=== PATIENT | male | born 1970 | race Caucasian/White ===

== ENCOUNTER → 2016-09-14 | Outpatient (CLI) | payer BC ==
[2016-09-14 16:40] LABS: BASO % 0.9 %; BASO ABS # 0.07 K/uL (0-0.2); COMPLETE YES; EOS % 3.8 %; HEMATOCRIT 46.7 % (42-52); IG% 0.3 %; LYMPH % 20.7 %; LYMPH ABS # 1.53 K/uL (1.2-3.4); MEAN CELL VOLUME 98.7 fL (80-100); MEAN CORPUSCULAR HEMOGLOBIN 34.2 pg (25-34); MEAN CORPUSCULAR HGB CONC 34.7 g/dl (32-36); MEAN PLATELET VOLUME 9.6 fL (7.4-10.4); MONO % 9.3 %; PLATELET COUNT 278 K/uL (130-400); RED BLOOD COUNT 4.73 M/uL (4.7-6.1)
[2016-09-14 17:23] LABS: ALT/SGPT 173 U/L (12-78); AST/SGOT 116 U/L (15-37); BLOOD UREA NITROGEN 12 mg/dl (7-18); BUN/CREATININE RATIO 11.3 (10-20); CALCIUM 9.4 mg/dl (8.5-10.1); CARBON DIOXIDE 29 mmol/L (21-32); CHLORIDE 103 mmol/L (98-107); GLUCOSE 96 mg/dl (70-99); POTASSIUM 4.6 mmol/L (3.5-5.1); SODIUM 138 mmol/L (136-145)
[2016-09-14 17:27] LABS: ALB/GLOB RATIO 1.2 (0.9-2); ALKALINE PHOSPHATASE 78 U/L (45-117); CHOLESTEROL 331 mg/dl (0-200); CHOLESTEROL/HDL RATIO 4.7; HDL CHOLESTEROL 71 mg/dl; LDL CHOLESTEROL CALCULATED 207 mg/dl; PROSTATE SPECIFIC ANTIGEN 0.484 ng/ml (0.000-4.000); TRIGLYCERIDES 263 mg/dl (0-150); VERY LOW DENSITY LIPOPROT CALC 53 mg/dl
== END | disposition home or self-care (01) ==
LOC: C.LABPBG 13:18
PROVIDERS: ATTEND Neuromusculoskeletal Medicine & OMM
DX: Z00.00 Encounter for general adult medical examination without abnormal findings (principal); Z12.5 Encounter for screening for malignant neoplasm of prostate

== ENCOUNTER → 2016-11-15 | Outpatient (CLI) | payer BC ==
--- NOTE | 2016-11-15 13:42 | DIAGNOSTIC IMAGING REPORT ---
CHEST 2 VIEWS ROUTINE CLINICAL HISTORY: R05 [id number] Allergic rhinitis dyspnea COMPARISON STUDY: No previous studies for comparison. FINDINGS: The bones soft tissues and hemidiaphragms are normal. The cardiomediastinal silhouette is normal. The lungs are clear. The pulmonary vasculature is normal. IMPRESSION: Negative chest. Electronically signed by: Ismael Logan M.D. 11/15/2016 1:41 PM Dictated Date/Time: 11/15/2016 1:41 PM
== END | disposition home or self-care (01) ==
LOC: C.RAD1850 13:27
PROVIDERS: ATTEND Internal Medicine Pulmonary Disease
DX: R05 Cough (principal); J30.9 Allergic rhinitis, unspecified

== ENCOUNTER → 2017-01-15 | Outpatient (CLI) | payer BC ==
--- NOTE | 2017-01-18 11:25 | POLYSOMNOGRAPH REPORT ---
CLINICAL DATA: 46-year-old male with BMI of 34.21 referred by myself and Dr. Dyson with a crowded airway, thick neck, snoring and cough. On the evening of 01/15/2017, a home sleep apnea test was performed using a [employer] type 3 monitor. RECORDING RESULTS: Total recording time was 10 hours. The patient's monitoring time and estimated sleep time was 10 hours. RESPIRATORY DATA: Severe sleep apnea was documented. The SUSANA was 61. There were 161 obstructive, 87 mixed, and 5 central apneic episodes. There were 356 hypopneic episodes. The longest respiratory event was 78 seconds. Significant nocturnal hypoxemia was seen. The oxygen itz was 71%. Mean saturation was 89%. Time below 89% was 203 minutes. HEART RATE DATA: Heart rates ranged from 60-46 beats per minute. SNORING DATA: Snoring was recorded throughout the night. IMPRESSION: Severe sleep apnea/hypopnea with an SUSANA of 61 with severe nocturnal hypoxemia. RECOMMENDATIONS: The patient may benefit from a repeat sleep study with CPAP or use of auto CPAP. Clinical correlation is needed. LIGIA
== END | disposition home or self-care (01) ==
LOC: C.NEUR 11:33
PROVIDERS: ATTEND Internal Medicine Pulmonary Disease
DX: R53.83 Other fatigue (principal); G47.30 Sleep apnea, unspecified; R09.02 Hypoxemia

== ENCOUNTER → 2017-07-26 | Outpatient (CLI) | payer OTHER ==
[2017-07-26 16:55] LABS: BASO % 1.3 %; BASO ABS # 0.07 K/uL (0-0.2); EOS % 4.1 %; EOS ABS # 0.22 K/uL (0-0.5); HEMATOCRIT 43.6 % (42-52); HEMOGLOBIN 15.4 g/dL (14.0-18.0); IG# 0.01 K/uL (0.00-0.02); LYMPH % 26.1 %; LYMPH ABS # 1.41 K/uL (1.2-3.4); MEAN CORPUSCULAR HEMOGLOBIN 32.8 pg (25-34); MEAN CORPUSCULAR HGB CONC 35.3 g/dl (32-36); MEAN PLATELET VOLUME 9.5 fL (7.4-10.4); MONO ABS # 0.65 K/uL (0.11-0.59); NEUT % 56.3 %; NEUT ABS # 3.05 K/uL (1.4-6.5); PLATELET COUNT 307 K/uL (130-400); RED CELL DISTRIBUTION WIDTH CV 13.2 % (11.5-14.5); RED CELL DISTRIBUTION WIDTH SD 44.2 fL (36.4-46.3); WHITE BLOOD COUNT 5.41 K/uL (4.8-10.8)
[2017-07-26 17:16] LABS: ALBUMIN 4.1 gm/dl (3.4-5.0); ALT/SGPT 197 U/L (12-78); BLOOD UREA NITROGEN 10 mg/dl (7-18); CALCIUM 9.2 mg/dl (8.5-10.1); CARBON DIOXIDE 28 mmol/L (21-32); CHOLESTEROL 301 mg/dl (0-200); CREATININE 1.28 mg/dl (0.60-1.40); GLUCOSE 106 mg/dl (70-99); POTASSIUM 4.2 mmol/L (3.5-5.1); SODIUM 136 mmol/L (136-145)
[2017-07-26 17:29] LABS: ALKALINE PHOSPHATASE 48 U/L (45-117); AST/SGOT 182 U/L (15-37); LDL CHOLESTEROL CALCULATED 226 mg/dl; TOTAL PROTEIN 7.6 gm/dl (6.4-8.2)
== END | disposition home or self-care (01) ==
LOC: C.LABPBG 14:10
PROVIDERS: ATTEND Neuromusculoskeletal Medicine & OMM
DX: I10 Essential (primary) hypertension (principal); E78.5 Hyperlipidemia, unspecified

== ENCOUNTER → 2017-09-17 | Outpatient (CLI) | payer OTHER ==
[~2017-09-17] MED LIST: OPTIRAY 320 IV PRN
--- NOTE | 2017-09-17 11:27 | DIAGNOSTIC IMAGING REPORT ---
CT OF THE CHEST WITH IV CONTRAST CLINICAL HISTORY: Cough. Asthma. COMPARISON STUDY: Chest radiograph November 15, 2016. TECHNIQUE: Following IV administration of 94 mL of Optiray-320, helical axial images of the chest were obtained. Sagittal and coronal reconstructions were viewed as well as maximal intensity projections on an independent 3-D workstation. A dose lowering technique was utilized adhering to the principles of ALARA. CT DOSE: 690.95 mGy.cm FINDINGS: No enlarged axillary, mediastinal or hilar lymph nodes are present. There are several calcified right hilar lymph nodes. The size of the heart is normal. There is no pericardial effusion. Central airways are patent. There is no pneumothorax or pleural effusion. No consolidation is present. A few calcified granulomas measure up to 6 mm. Bony thorax is unremarkable. Fatty infiltration of the liver is noted. IMPRESSION: 1. No acute intrathoracic findings. No consolidation to suggest pneumonia. 2. No suspicious pulmonary nodules. 3. Evidence for prior granulomatous process. 4. Fatty liver. Electronically signed by: Kasi Perry M.D. 09/17/2017 11:25 AM Dictated Date/Time: 09/17/2017 11:19 AM
== END | disposition home or self-care (01) ==
LOC: C.CTS 11:04
PROVIDERS: ATTEND Internal Medicine Critical Care Medicine
DX: R05 Cough (principal); K76.0 Fatty (change of) liver, not elsewhere classified

== ENCOUNTER 2020-11-25 16:22 | Inpatient (IN) ==
--- NOTE | 2020-11-25 16:42 | Emergency Department Note ---
Impression & Plan Acute kidney insufficiency, Hypomagnesemia, Hyponatremia ED Provider Note NAME: JEANNETTE MEJIA AGE: 50 SEX: M ARRIVES VIA: Walk-In INFORMANT: Patient, ED PROVIDER(S): Alphonso Youssef MD CHIEF COMPLAINT: Bodyaches, fatigue. Referred. PLAN: Disposition: Admit MEDICAL DECISION MAKING: The patient is a pleasant 50-year-old gentleman with a pmhx of HTN, HLD, GERD, VALERY, Transaminitis who presents to the emergency department referred by his PCP for outpatient blood work showing acute renal insufficiency and worsening LFTs. The patient reports his blood work was performed 2 days ago as a part of an outpatient well visit that happened to coincide with acute onset of symptoms of nausea vomiting and body aches approximately 5 days ago. The patient denies any objective fevers or cough with his symptoms. He denies any known COVID-19 exposures. He denies any known tick bites. He reports since being seen a couple of days ago he has felt some mild improvement in his body aches. On arrival the patient fatigued appearing but no acute distress, afebrile with stable vital signs. On exam the patient appears clinically dry. He has no joint edema, warmth or tenderness. EKG without overt acute ischemia. Chest x-ray negative for acute cardiopu lmonary process. WBC, hemoglobin and platelets within normal limits. He does have a mild lymphopenia at 0.94. Chemistry without metabolic acidosis. Creatinine however is 2.6, increased from normal range approximately a year ago. Sodium 124 which may be multifactorial in setting of dehydration from nausea and vomiting as well as being on hydrochlorothiazide. Magnesium 1.5 with repletion initiated. LFTs are elevated from baseline. Troponin negative/undetectable. Lipase is marginally elevated at 500. TSH within normal limits. UA without convincing evidence of infection. Lyme screen was negative. Anaplasma smear also negative. CT Abd pelvis was performed and negative for acute process. Given the patient's numerous lab abnormalities including acute renal insufficiency, hyponatremia and hypomagnesemia reasonable to admit the patient for further management. Patient is in agreement with this plan. Case was discussed with Dr. Canales, [facility] hospitalist, who will evaluate the patient for admission. Triage Nursing notes reviewed and agree them. Prior medical records reviewed Vital Signs: reviewed and remarkable for no significant abnormalities Differential diagnosis: Infection, dehydration, metabolic abnormality, hypo/hyperglycemia, electrolyte disturbance, anemia, hypoxia, cardiac sources, intracerebral event, toxicologic, neurologic, as well as other pathologies. ER treatment provided: See below. Diagnostics interpreted by me: ECG: Normal sinus rhythm, 71 bpm, no ectopy, ST and T wave abnormality, no overt ST elevation or depression, QTC 443, QRS 82. Cardiac Monitoring: An order for continuous cardiac monitoring was placed and demonstrated Normal sinus rhythm, 71 bpm, no ectopy. Laboratory studies: See below Imaging studies: See below Consultation(s): Case was discussed with Dr. Canales, [facility] hospitalist, who will evaluate the patient for admission. HPI: The patient is a pleasant 50-year-old gentleman with a pmhx of HTN, HLD, GERD, VALERY, Transaminitis who presents to the emergency department referred by his PCP for outpatient blood work showing acute renal insufficiency and wor sening LFTs. The patient reports his blood work was performed 2 days ago as a part of an outpatient well visit that happened to coincide with acute onset of symptoms of nausea vomiting and body aches approximately 5 days ago. The patient denies any objective fevers or cough with his symptoms. He denies any known COVID-19 exposures. He denies any known tick bites. He reports since being seen a couple of days ago he has felt some mild improvement in his body aches. ROS: See above HPI for pertinent positives & negatives. A total of 10 systems reviewed and were otherwise negative. PAST MEDICAL HISTORY:See Below PAST SURGICAL HISTORY:See Below FAMILY HISTORY:See Below SOCIAL HISTORY:See Below HOME MEDICATIONS:See Below ALLERGIES:See Below VITALS:See Below PHYSICAL EXAMINATION: GENERAL: Awake, alert, fatigued-appearing, in no distress HENT: Normocephalic, atraumatic. Oropharynx with dry mucous membranes and otherwise unremarkable. EYES: Normal conjunctiva. Sclera non-icteric. EOMI. No nystamgus. PEARRL. NECK: Supple. No nuchal rigidity. FROM. No JVD. RESPIRATORY: Clear to auscultation. CARDIAC: Regular rate, normal rhythm. Extremities warm and well perfused. Pulses equal. ABDOMEN: Soft, non-distended. No tenderness to palpation. No rebound or guarding. No masses. RECTAL: Deferred. MUSCULOSKELETAL: Chest examination reveals no tenderness. The back is symmetrical on inspection without obvious abnormality. There is no CVA tenderness to palpation. No joint edema. LOWER EXTREMITIES: Calves are equal size bilaterally and non-tender. No edema. No discoloration. NEURO: Normal sensorium. No sensory or motor deficits noted. 5/5 strength and S ILT x 4 extremities. SKIN: No rash or jaundice noted. Alphonso Youssef MD Past Med/Surg History Medical History Cat allergies Chronic back pain Hyperlipidemia Hypertension Oral thrush Severe obstructive sleep apnea Surgical History History of hand surgery History of laminectomy Family History Mother Dementia Grandmother (Maternal) Dementia Aunt Dementia Denies family history of Colon cancer Ovarian cancer Prostate cancer Myocardial infarction Breast cancer Social History Smoking Status: Never smoker Second Hand Exposure: No; Hx Alcohol Use: Yes Alcohol type: hard liquor Alcohol Intake Frequency: 4 or More x per/Week Alcohol Intake Frequency Comment: 15-25 drinks/week Hx Substance Use: Yes Last Used Substance: Days (ago) Preferred Language: Tajik Communication Ability: Effective Visual Impairment: No Limitations Hearing Ability: Normal Beliefs That Will Affect Care: None marital status: Current Living Situation: Spouse current occupational status: other Other Information That Helps Us Care for You: No Feels Safe at Home: Yes Safety Concerns: Feels Safe At This Time Childhood Exposure to Second-Hand Smoke: Yes Diet Comment: no diet plans Dental Care, Regularly: Yes Physical Activity Frequency: Does not Exercise Seatbelt Use: always Sunscreen Use: No Do you think of yourself as: straight/heterosexual Assistive Devices: Glasses Allergies Allergies Allergy/AdvReac Type Severity Reaction Status Date / Time erythromycin base Allergy Severe seizures Verified 02/08/20 14:25 PREPOPIK Allergy Intermediate skin rash Uncoded 02/08/20 14:25 Home Meds Home Medications Medication Instructions Recorded Confirmed glycopyrrolate 1 mg tablet 5 mg PO DAILY tab 02/05/19 11/25/20 acetaminophen [Tylenol Extra 500 mg PO Q6H PRN 11/25/20 11/25/20 Strength] Previous Rx's Medication Instructions Recorded atorvastatin 20 mg tablet 20 mg PO DAILY #90 tab 08/11/20 fenofibrate nanocrystallized 145 145 mg PO DAILY #90 tab 08/11/20 mg tablet hydrochlorothiazide 25 mg tablet 25 mg PO DAILY #90 tab 08/11/20 metoprolol tartrate 100 mg tablet 100 mg PO BID #180 tab 08/11/20 olmesartan 40 mg tablet 40 mg PO DAILY #90 tab 08/11/20 omeprazole 40 mg capsule,delayed 40 mg PO DAILY #90 cap 08/11/20 release Results & Data (ED) Vital Signs Vital Signs - 24 hr 11/25/20 16:25 11/25/20 17:00 11/25/20 18:36 Temperature 37.3 C Temperature Source Oral Pulse Rate 76 Pulse Rate [Apical] 65 Pulse Rate from SpO2 Sensor Respiratory Rate 20 18 Respiratory Effort / Characteristics Non-Labored Respiratory Depth Normal Blood Pressure 172/101 H Blood Pressure [Right Arm] 159/114 H Blood Pressure Mean 124 Blood Pressure Mean [Right Arm] 129 Pulse Oximetry 100 98 100 Oxygen Delivery Method Room Air Room Air Sepsis Recent Fever Within 48 Hours No Sepsis New/Unexplained Change in Mental Status N/A Sepsis Action Taken by Nursing No Action Required 11/25/20 19:15 11/25/20 19:30 11/25/20 20:30 Temperature Temperature Source Pulse Rate 67 71 72 Pulse Rate [Apical] Pulse Rate from SpO2 Sensor 70 71 72 Respiratory Rate 15 19 22 Respiratory Effort / Characteristics Respiratory Depth Blood Pressure 162/102 H 162/95 H 137/96 Blood Pressure [Right Arm] Blood Pressure Mean 122 117 109 Blood Pressure Mean [Right Arm] Pulse Oximetry 98 99 97 Oxygen Delivery Method Room Air Room Air Room Air Sepsis Recent Fever Within 48 Hours Sepsis New/Unexplained Change in Mental Status Sepsis Action Taken by Nursing Laboratory Data Attestation: I reviewed the patient's lab results. Result diagrams: 11/25/20 16:40 11/25/20 16:40 Lab Results 11/25/20 11/25/20 11/25/20 Range/Units 16:40 16:40 16:40 WBC 8.59 (4.8-10.8) K/uL RBC 4.26 L (4.7-6.1) M/uL Hgb 14.6 (14.0-18.0) g/dL Hct 39.9 L (42-52) % MCV 93.7 (80-100) fL MCH 34.3 H (25-34) pg MCHC 36.6 H (32-36) g/dL RDW Std Deviation 53.0 H (36.4-46.3) fL RDW Coeff of Mona 15.4 H (11.5-14.5) % Plt Count 314 (130-400) K/uL MPV 9.3 (7.4-10.4) fL Immature Gran % (Auto) 0.1 % Neut % (Auto) 77.8 % Lymph % (Auto) 10.9 % [place] % (Auto) 10.5 % Eos % (Auto) 0.5 % Baso % (Auto) 0.2 % Neut # (Auto) 6.68 H (1.4-6.5) K/uL Lymph # (Auto) 0.94 L (1.2-3.4) K/uL [place] # (Auto) 0.90 H (0.11-0.59) K/uL Eos # (Auto) 0.04 (0-0.5) K/uL Baso # (Auto) 0.02 (0-0.2) K/uL Immature Gran # (Auto) 0.01 (0.00-0.02) K/uL PT (9.0-12.0) Seconds INR (0.9-1.1) Sodium 124 L (136-145) mmol/L Potassium 3.5 (3.5-5.1) mmol/L Chloride 88 L (98-107) mmol/L Carbon Dioxide 24 (21-32) mmol/L Anion Gap 12.0 H (3-11) BUN 42 H (7-18) mg/dl Creatinine 2.67 H (0.6-1.4) mg/dl Est Cr Clr Drug Dosing 36.9 ml/min Est GFR ( Amer) 30.5 ml/min Est GFR (Non-Af Amer) 26.3 ml/min BUN/Creatinine Ratio 15.6 (10-20) Glucose 103 H (70-99) mg/dl Osmolality (280-300) mOsm/kg Calcium 9.7 (8.5-10.1) mg/dl Phosphorus 2.5 (2.5-4.9) mg/dl Magnesium 1.5 L (1.8-2.4) mg/dl Total Bilirubin 1.2 H (0.2-1) mg/dl Direct Bilirubin 0.5 H (0-0.2) mg/dl AST 253 H (15-37) U/L ALT 175 H (12-78) U/L Alkaline Phosphatase 43 L (45-117) U/L Total Creatine Kinase 898 H (39-308) U/L Troponin I < 0.015 (0-0.045) ng/ml Total Protein 8.5 H (6.4-8.2) gm/dl Albumin 4.8 (3.4-5.0) gm/dl Globulin 3.7 (2.5-4.0) gm/dl Albumin/Globulin Ratio 1.3 (0.9-2) Lipase 557 H (73-393) U/L TSH 0.671 (0.300-4.500) uIu/ml Urine Color Urine Appearance (Clear) Urine pH (4.5-7.5) Ur Specific [place] (1.000-1.030) Urine Protein (Negative) Urine Glucose (UA) (Negative) Urine Ketones (Negative) Urine Blood (Negative) Urine Nitrite (Negative) Urine Bilirubin (Negative) Urine Urobilinogen (Negative) Ur Leukocyte Esterase (Negative) Ur Random Creatinine mg/dl Ur Random Sodium mmol/L Anaplasma Smear See Comment Lyme Disease IgG Ab Negative (Negative) Lyme Disease IgM Ab Negative (Negative) COVID-19 Eval Order SARS-CoV-2 (PCR) (Negative) Hep Bs Antigen (Neg) Hepatitis C Antibody (Neg) 11/25/20 11/25/20 11/25/20 Range/Units 16:40 16:40 16:40 WBC (4.8-10.8) K/uL RBC (4.7-6.1) M/uL Hgb (14.0-18.0) g/dL Hct (42-52) % MCV (80-100) fL MCH (25-34) pg MCHC (32-36) g/dL RDW Std Deviation (36.4-46.3) fL RDW Coeff of Mona (11.5-14.5) % Plt Count (130-400) K/uL MPV (7.4-10.4) fL Immature Gran % (Auto) % Neut % (Auto) % Lymph % (Auto) % [place] % (Auto) % Eos % (Auto) % Baso % (Auto) % Neut # (Auto) (1.4-6.5) K/uL Lymph # (Auto) (1.2-3.4) K/uL [place] # (Auto) (0.11-0.59) K/uL Eos # (Auto) (0-0.5) K/uL Baso # (Auto) (0-0.2) K/uL Immature Gran # (Auto) (0.00-0.02) K/uL PT 10.5 (9.0-12.0) Seconds INR 1.0 (0.9-1.1) Sodium (136-145) mmol/L Potassium (3.5-5.1) mmol/L Chloride (98-107) mmol/L Carbon Dioxide (21-32) mmol/L Anion Gap (3-11) BUN (7-18) mg/dl Creatinine (0.6-1.4) mg/dl Est Cr Clr Drug Dosing ml/min Est GFR ( Amer) ml/min Est GFR (Non-Af Amer) ml/min BUN/Creatinine Ratio (10-20) Glucose (70-99) mg/dl Osmolality (280-300) mOsm/kg Calcium (8.5-10.1) mg/dl Phosphorus (2.5-4.9) mg/dl Magnesium (1.8-2.4) mg/dl Total Bilirubin (0.2-1) mg/dl Direct Bilirubin (0-0.2) mg/dl AST (15-37) U/L ALT (12-78) U/L Alkaline Phosphatase (45-117) U/L Total Creatine Kinase (39-308) U/L Troponin I (0-0.045) ng/ml Total Protein (6.4-8.2) gm/dl Albumin (3.4-5.0) gm/dl Globulin (2.5-4.0) gm/dl Albumin/Globulin Ratio (0.9-2) Lipase (73-393) U/L TSH (0.300-4.500) uIu/ml Urine Color Dark Yellow Urine Appearance Clear (Clear) Urine pH 5.0 (4.5-7.5) Ur Specific [place] 1.021 (1.000-1.030) Urine Protein Negative (Negative) Urine Glucose (UA) 2+ H (Negative) Urine Ketones Trace H (Negative) Urine Blood Negative (Negative) Urine Nitrite Negative (Negative) Urine Bilirubin Negative (Negative) Urine Urobilinogen Negative (Negative) Ur Leukocyte Esterase Negative (Negative) Ur Random Creatinine 303.0 mg/dl Ur Random Sodium 29 mmol/L Anaplasma Smear Lyme Disease IgG Ab (Negative) Lyme Disease IgM Ab (Negative) COVID-19 Eval Order SARS-CoV-2 (PCR) (Negative) Hep Bs Antigen (Neg) Hepatitis C Antibody (Neg) 11/25/20 11/25/20 11/25/20 Range/Units 16:40 16:40 17:00 WBC (4.8-10.8) K/uL RBC (4.7-6.1) M/uL Hgb (14.0-18.0) g/dL Hct (42-52) % MCV (80-100) fL MCH (25-34) pg MCHC (32-36) g/dL RDW Std Deviation (36.4-46.3) fL RDW Coeff of Mona (11.5-14.5) % Plt Count (130-400) K/uL MPV (7.4-10.4) fL Immature Gran % (Auto) % Neut % (Auto) % Lymph % (Auto) % [place] % (Auto) % Eos % (Auto) % Baso % (Auto) % Neut # (Auto) (1.4-6.5) K/uL Lymph # (Auto) (1.2-3.4) K/uL [place] # (Auto) (0.11-0.59) K/uL Eos # (Auto) (0-0.5) K/uL Baso # (Auto) (0-0.2) K/uL Immature Gran # (Auto) (0.00-0.02) K/uL PT (9.0-12.0) Seconds INR (0.9-1.1) Sodium (136-145) mmol/L Potassium (3.5-5.1) mmol/L Chloride (98-107) mmol/L Carbon Dioxide (21-32) mmol/L Anion Gap (3-11) BUN (7-18) mg/dl Creatinine (0.6-1.4) mg/dl Est Cr Clr Drug Dosing ml/min Est GFR ( Amer) ml/min Est GFR (Non-Af Amer) ml/min BUN/Creatinine Ratio (10-20) Glucose (70-99) mg/dl Osmolality 277 L (280-300) mOsm/kg Calcium (8.5-10.1) mg/dl Phosphorus (2.5-4.9) mg/dl Magnesium (1.8-2.4) mg/dl Total Bilirubin (0.2-1) mg/dl Direct Bilirubin (0-0.2) mg/dl AST (15-37) U/L ALT (12-78) U/L Alkaline Phosphatase (45-117) U/L Total Creatine Kinase (39-308) U/L Troponin I (0-0.045) ng/ml Total Protein (6.4-8.2) gm/dl Albumin (3.4-5.0) gm/dl Globulin (2.5-4.0) gm/dl Albumin/Globulin Ratio (0.9-2) Lipase (73-393) U/L TSH (0.300-4.500) uIu/ml Urine Color Urine Appearance (Clear) Urine pH (4.5-7.5) Ur Specific [place] (1.000-1.030) Urine Protein (Negative) Urine Glucose (UA) (Negative) Urine Ketones (Negative) Urine Blood (Negative) Urine Nitrite (Negative) Urine Bilirubin (Negative) Urine Urobilinogen (Negative) Ur Leukocyte Esterase (Negative) Ur Random Creatinine mg/dl Ur Random Sodium mmol/L Anaplasma Smear Lyme Disease IgG Ab (Negative) Lyme Disease IgM Ab (Negative) COVID-19 Eval Order Covid19 at [facility] SARS-CoV-2 (PCR) (Negative) Hep Bs Antigen Neg (Neg) Hepatitis C Antibody Neg (Neg) 11/25/20 Range/Units 17:00 WBC (4.8-10.8) K/uL RBC (4.7-6.1) M/uL Hgb (14.0-18.0) g/dL Hct (42-52) % MCV (80-100) fL MCH (25-34) pg MCHC (32-36) g/dL RDW Std Deviation (36.4-46.3) fL RDW Coeff of Mona (11.5-14.5) % Plt Count (130-400) K/uL MPV (7.4-10.4) fL Immature Gran % (Auto) % Neut % (Auto) % Lymph % (Auto) % [place] % (Auto) % Eos % (Auto) % Baso % (Auto) % Neut # (Auto) (1.4-6.5) K/uL Lymph # (Auto) (1.2-3.4) K/uL [place] # (Auto) (0.11-0.59) K/uL Eos # (Auto) (0-0.5) K/uL Baso # (Auto) (0-0.2) K/uL Immature Gran # (Auto) (0.00-0.02) K/uL PT (9.0-12.0) Seconds INR (0.9-1.1) Sodium (136-145) mmol/L Potassium (3.5-5.1) mmol/L Chloride (98-107) mmol/L Carbon Dioxide (21-32) mmol/L Anion Gap (3-11) BUN (7-18) mg/dl Creatinine (0.6-1.4) mg/dl Est Cr Clr Drug Dosing ml/min Est GFR ( Amer) ml/min Est GFR (Non-Af Amer) ml/min BUN/Creatinine Ratio (10-20) Glucose (70-99) mg/dl Osmolality (280-300) mOsm/kg Calcium (8.5-10.1) mg/dl Phosphorus (2.5-4.9) mg/dl Magnesium (1.8-2.4) mg/dl Total Bilirubin (0.2-1) mg/dl Direct Bilirubin (0-0.2) mg/dl AST (15-37) U/L ALT (12-78) U/L Alkaline Phosphatase (45-117) U/L Total Creatine Kinase (39-308) U/L Troponin I (0-0.045) ng/ml Total Protein (6.4-8.2) gm/dl Albumin (3.4-5.0) gm/dl Globulin (2.5-4.0) gm/dl Albumin/Globulin Ratio (0.9-2) Lipase (73-393) U/L TSH (0.300-4.500) uIu/ml Urine Color Urine Appearance (Clear) Urine pH (4.5-7.5) Ur Specific [place] (1.000-1.030) Urine Protein (Negative) Urine Glucose (UA) (Negative) Urine Ketones (Negative) Urine Blood (Negative) Urine Nitrite (Negative) Urine Bilirubin (Negative) Urine Urobilinogen (Negative) Ur Leukocyte Esterase (Negative) Ur Random Creatinine mg/dl Ur Random Sodium mmol/L Anaplasma Smear Lyme Disease IgG Ab (Negative) Lyme Disease IgM Ab (Negative) COVID-19 Eval Order SARS-CoV-2 (PCR) NEGATIVE (Negative) Hep Bs Antigen (Neg) Hepatitis C Antibody (Neg) Administered Medications Cetirizine HCl (Cetirizine Hcl 10 Mg Tablet) 10 mg PO [facility] Stop: 12/26/20 08:59 Last Admin: 11/26/20 00:53 Dose: 10 mg Documented by: [id number] Folic Acid (Folic Acid 1 Mg Tab) 1 mg PO [facility] Stop: 12/25/20 22:59 Last Admin: 11/25/20 23:15 Dose: 1 mg Documented by: [id number] Doxycycline Hyclate 100 mg/ (Dextrose) 110 mls @ 50 mls/hr IV Q12H [facility] Stop: 11/27/20 22:59 Last Infusion: 11/26/20 01:33 Dose: 0 mls/hr Documented by: [id number] Admin: 11/25/20 23:15 Dose: 50 mls/hr Documented by: [id number] Sodium Chloride (Nss 1000ml) 1,000 mls @ 125 mls/hr IV .Q8H [facility] Stop: 11/26/20 06:36 Last Admin: 11/25/20 23:13 Dose: 125 mls/hr Documented by: [id number] Thiamine HCl (Thiamine Hcl 100 Mg Tab) 100 mg PO [facility] Stop: 12/25/20 22:59 Last Admin: 11/25/20 23:16 Dose: 100 mg Documented by: [id number] Discontinued Medications Glycopyrrolate (Glycopyrrolate 1 Mg Tab) 2 mg PO NOW [facility] Stop: 11/26/20 00:30 Last Admin: 11/26/20 00:52 Dose: 2 mg Documented by: [id number] Sodium Chloride (Nss 1000ml) 1,000 mls @ 999 mls/hr IV .Q1H1M [facility] Stop: 11/25/20 17:48 Last Infusion: 11/25/20 18:16 Dose: 0 mls/hr Documented by: [id number] Admin: 11/25/20 17:20 Dose: 999 mls/hr Documented by: [id number] Magnesium Sulfate/Dextrose (Magnesium Sulfate / D5w) 1 gm in 100 mls @ 100 mls/hr IV Q1H [facility] Stop: 11/25/20 20:40 Last Infusion: 11/25/20 21:32 Dose: 0 mls/hr Documented by: [id number] Admin: 11/25/20 20:25 Dose: 100 mls/hr Documented by: [id number] Infusion: 11/25/20 20:19 Dose: 0 mls/hr Documented by: [id number] Admin: 11/25/20 19:13 Dose: 100 mls/hr Documented by: [id number] Sodium Chloride (Nss 1000ml) 1,000 mls @ 125 mls/hr IV .Q8H [facility] Stop: 12/25/20 20:14 Last Infusion: 11/25/20 22:46 Dose: 0 mls/hr Documented by: [id number] Admin: 11/25/20 20:25 Dose: 125 mls/hr Documented by: [id number] Magnesium Sulfate/Dextrose (Magnesium Sulfate / D5w) 1 gm in 100 mls @ 50 mls/hr IV ONE ONE Stop: 11/26/20 00:59 Last Infusion: 11/26/20 01:33 Dose: 0 mls/hr Documented by: [id number] Admin: 11/25/20 23:15 Dose: 50 mls/hr Documented by: [id number] Metoprolol Tartrate (Metoprolol Tartrate 100 Mg Tab) 100 mg PO NOW [facility] Stop: 11/26/20 00:30 Last Admin: 11/26/20 00:53 Dose: 100 mg Documented by: [id number] Imaging Data Radiologist's Impression: Chest X-Ray 11/25/20 16:47 XR chest 1V portable HISTORY: 50 years-old Male Chest Pain acute atypical chest pain COMPARISON: Chest radiographs 11/15/2016, chest CT 09/17/2017 TECHNIQUE: Portable AP view of the chest FINDINGS: Cardiomediastinal and hilar silhouettes are within normal limits. No pneumothorax, pleural effusion, airspace consolidation or overt pulmonary edema. Ill-defined 1.4 cm nodular opacity of the left lung base. Spondylitic spurring of the spine. IMPRESSION: 1. No acute process. 2. Ill-defined 1.4 cm nodular opacity of the left lung base is suggestive of probable summation density. A pulmonary nodule could appear similarly. ACT 112: Negative or not required by law. The above report was generated using voice recognition software. It may contain grammatical, syntax or spelling errors. Electronically signed by: Lázaro Torres M.D. 11/25/2020 5:08 PM Abdomen/Pelvis CT 11/25/20 17:[address] WITHOUT CONTRAST CT DOSE: 775.98 mGy.cm HISTORY: Acute kidney injury [facility] TECHNIQUE: Multiaxial CT images of the abdomen and pelvis were performed without contrast. A dose lowering technique was utilized adhering to the principles of ALARA. COMPARISON STUDY: Chest CT 09/17/2017 FINDINGS: The imaged inferior cardiac chambers are unremarkable. Calcified granuloma of the basal right lower lobe. No pneumatosis or pneumoperitoneum. Limited evaluation of the solid abdominal organs without the use of IV contrast. Unremarkable spleen with a few punctate calcifications. Unremarkable pancreas, adrenal glands and gallbladder. Hepatic steatosis with mild hepatomegaly. Unremarkable kidneys. No renal or ureteral calculi or hydronephrosis. Urinary bladder wall thickening with partial distention. There is no abdominal aortic aneurysm. No adenopathy. No bowel obstruction or bowel wall thickening. No ascites or mesenteric inflammation. High density material noted within the colon is also within a few loops of small bowel. Normal appendix. Unremarkable soft tissues. Avascular necrosis of the femoral heads. Degenerative changes of the pelvis and spine. IMPRESSION: 1. No urolith or obstructive uropathy. 2. No bowel obstruction or bowel wall thickening. Normal appendix. 3. Hepatic steatosis 4. Avascular necrosis of the femoral heads. ACT 112: Negative or not required by law. The above report was generated using voice recognition software. It may contain grammatical, syntax or spelling errors. Electronically signed by: Lázaro Torres M.D. 11/25/2020 6:27 PM Discharge Plan Visit Data Chief Complaint: Illness Stated Complaint: MUSCLE CRAMPS, UNABLE TO VOID, KIDNEY FAILURE ED Provider: Alphonso Youssef Discharge Problem: Acute kidney insufficiency, Hypomagnesemia, Hyponatremia Patient Disposition: Admitted As Inpatient Discharge Instructions Interventions: ED Discharge Assessment Last Done: 11/25/20 22:23
[2020-11-25] MEDS ORDERED: SODIUM CHLORIDE 0.9% 1000ML 1,000 ML IV ONE (16:48)
[2020-11-25 16:59] LABS: Appearance Urine Clear (Clear); Bilirubin Urine Negative (Negative); Blood Urine Negative (Negative); Color Urine Dark Yellow; Glucose Urine UA 2+ (Negative); Ketones Urine Trace (Negative); Leukocyte Esterase Urine Negative (Negative); Nitrite Urine Negative (Negative); Protein Urine Negative (Negative); Specific Gravity Urine 1.021 (1.000-1.030); Urobilinogen Urine Negative (Negative)
[2020-11-25 17:00] LABS: Basophils # (auto) 0.02 K/uL (0-0.2); Basophils % (auto) 0.2 %; Eosinophils # (auto) 0.04 K/uL (0-0.5); Eosinophils % (auto) 0.5 %; Hematocrit (blood only) 39.9 % (42-52); Hemoglobin 14.6 g/dL (14.0-18.0); Immature Granulocytes # (auto) 0.01 K/uL (0.00-0.02); Immature Granulocytes % (auto) 0.1 %; Lymphocytes # (auto) 0.94 K/uL (1.2-3.4); Lymphocytes % (auto) 10.9 %; Mean Corpuscular Hemoglobin 34.3 pg (25-34); Mean Corpuscular Hgb Conc 36.6 g/dL (32-36); Mean Corpuscular Volume 93.7 fL (80-100); Mean Platelet Volume 9.3 fL (7.4-10.4); Monocytes % (auto) 10.5 %; Neutrophils # (auto) 6.68 K/uL (1.4-6.5); Neutrophils % (auto) 77.8 %; Platelet Count 314 K/uL (130-400); RDW Coefficient of Variation 15.4 % (11.5-14.5); Red Blood Count 4.26 M/uL (4.7-6.1); White Blood Count 8.59 K/uL (4.8-10.8)
--- NOTE | 2020-11-25 17:10 | XRay Report ---
XR chest 1V portable HISTORY: 50 years-old Male Chest Pain acute atypical chest pain COMPARISON: Chest radiographs 11/15/2016, chest CT 09/17/2017 TECHNIQUE: Portable AP view of the chest FINDINGS: Cardiomediastinal and hilar silhouettes are within normal limits. No pneumothorax, pleural effusion, airspace consolidation or overt pulmonary edema. Ill-defined 1.4 cm nodular opacity of the left lung base. Spondylitic spurring of the spine. IMPRESSION: 1. No acute process. 2. Ill-defined 1.4 cm nodular opacity of the left lung base is suggestive of probable summation densi ty. A pulmonary nodule could appear similarly. ACT 112: Negative or not required by law. The above report was generated using voice recognition software. It may contain grammatical, syntax o r spelling errors. Electronically signed by: Lázaro Torres M.D. 11/25/2020 5:08 PM
[2020-11-25 17:20] LABS: Alanine Aminotransferase 175 U/L (12-78); Albumin Level 4.8 gm/dl (3.4-5.0); Aspartate Aminotransferase 253 U/L (15-37); BUN Creatinine Ratio 15.6 (10-20); Bilirubin Direct 0.5 mg/dl (0-0.2); Blood Urea Nitrogen 42 mg/dl (7-18); Calcium 9.7 mg/dl (8.5-10.1); Carbon Dioxide 24 mmol/L (21-32); Chloride 88 mmol/L (98-107); Creatinine Clr Calc Pharmacy 36.9 ml/min; Est GFR (African American) 30.5 ml/min; Est GFR (Non-African American) 26.3 ml/min; Glucose 103 mg/dl (70-99); Lipase 557 U/L (73-393); Magnesium 1.5 mg/dl (1.8-2.4); Potassium 3.5 mmol/L (3.5-5.1); Sodium 124 mmol/L (136-145)
[2020-11-25 17:29] LABS: Albumin Globulin Ratio 1.3 (0.9-2); Alkaline Phosphatase 43 U/L (45-117); Bilirubin,Total 1.2 mg/dl (0.2-1); Creatine Kinase 898 U/L (39-308); Globulin 3.7 gm/dl (2.5-4.0); Phosphorus 2.5 mg/dl (2.5-4.9); Thyroid Stimulating Hormone 0.671 uIu/ml (0.300-4.500); Total Protein 8.5 gm/dl (6.4-8.2); Troponin I < 0.015 ng/ml (0-0.045)
[2020-11-25 18:13] LABS: Lyme Ab IgG w/WB Rflx Negative (Negative); Lyme Ab IgM w/WB Rflx Negative (Negative)
--- NOTE | 2020-11-25 18:28 | CT Scan Report ---
ABDOMEN AND PELVIS CT WITHOUT CONTRAST CT DOSE: 775.98 mGy.cm HISTORY: Acute kidney injury VENKATESH TECHNIQUE: Multiaxial CT images of the abdomen and pelvis were performed without contrast. A dose lo wering technique was utilized adhering to the principles of ALARA. COMPARISON STUDY: Chest CT 09/17/2017 FINDINGS: The imaged inferior cardiac chambers are unremarkable. Calcified granuloma of the basal right lower l obe. No pneumatosis or pneumoperitoneum. Limited evaluation of the solid abdominal organs without the use of IV contrast. Unremarkable spleen with a few punctate calcifications. Unremarkable pancreas, a drenal glands and gallbladder. Hepatic steatosis with mild hepatomegaly. Unremarkable kidneys. No renal or ureteral calculi or hydronephrosis. Urinary bladder wall thickening with partial distention. There is no abdominal aortic aneurysm. No adenopathy. No bowel obstruction or bowel wall thickening. No ascites or mesenteric inflammation. High density material noted within t he colon is also within a few loops of small bowel. Normal appendix. Unremarkable soft tissues. Avasc ular necrosis of the femoral heads. Degenerative changes of the pelvis and spine. IMPRESSION: 1. No urolith or obstructive uropathy. 2. No bowel obstruction or bowel wall thickening. Normal appendix. 3. Hepatic steatosis 4. Avascular necrosis of the femoral heads. ACT 112: Negative or not required by law. The above report was generated using voice recognition software. It may contain grammatical, syntax o r spelling errors. Electronically signed by: Lázaro Torres M.D. 11/25/2020 6:27 PM
[2020-11-25] MEDS: MAGNESIUM SULFATE / D5W 1 GM/100 ML BAG IV SCH ×2 (19:13→20:25)
[2020-11-25] MEDS ORDERED: SODIUM CHLORIDE 0.9% 1000ML 1,000 ML IV SCH ×2 (20:15→22:37)
--- NOTE | 2020-11-25 21:25 | History & Physical Report ---
Date of Service November 25, 2020 Assessment & Plan (1) Acute kidney insufficiency: 50yo male presenting with one week of feeling ill, specifically nausea, muscle cramps as well as headache and dizziness. Patient with VENKATESH - BUN of 42 and Cr of 2.67. Both up from 12 and 1.15, respectively in 01/2020). Patient reports decreased UOP. K is WNL. He has AG of 12, serum bicarbonate is within normal range at 24. Suspect multifactorial cause - ?underlying infection/tick borne illness, medication effects, mildly elevated CK total of 898 most likely not contributing. UA without protein or blood. No suggestion of infection. -Admit to medical -Monitor strict I/Os - bladder scan and straight cath as needed -Calculate FeUrea -Hold Olmesartan and HCTZ for now -Avoid nephrotoxic agents -Renal dosing where needed -Monitor BUN, Cr, electrolytes and UOP Present on Admission?: Yes (2) Elevated LFTs: Patient with abnormal LFTs, mixed pattern. CT of the abdomen comments on hepatic steatosis with mild hepatomegaly. Patient does drink EtOH fairly regularly. He has had history of elevated LFTs before. ?possible tick-borne illness -Check Lyme, Anaplasmosis, Babesiosis -Check INR -Check Tylenol level, acute hepatitis panel -Repeat LFTs in AM -AWSS at risk protocol - patient with no history of EtOH withdrawal -Empiric Doxycycline 100mg IV BID -Thiamine 100mg daily -Folic Acid 1mg daily -Zofran PRN nausea Present on Admission?: Yes (3) Hypomagnesemia: Mg=1.5 -Mg x 2gm IV -Repeal in AM Present on Admission?: Yes (4) Hyponatremia: En=858 from normal baseline. Patient on HCTZ -Check urine and serum osm -Continue to monitor Present on Admission?: Yes (5) Hyperhidrosis: Patient reports hyperhidrosis for which he takes Robinul -Robimul 3mg po qAM and 2mg po qHS Present on Admission?: Yes (6) Hypertension: Chronic. Well controlled -Continue Metoprolol 100mg po BID -Hold Olmesartan and HCTZ as above -Continue to monitor Present on Admission?: Yes (7) Hyperlipidemia: Chronic -Hold Fenofibrate and Atorvastin for now Present on Admission?: Yes (8) GERD (gastroesophageal reflux disease): Chronic -Continue Protonix 40mg po daily F/E/N - NSS at 125mL/hr x 1 liter, Mg repletion as above, Na monitoring, Heart healthy diet as tolerated ppx - Lovenox 40 Code - DNR/DNI per discussion with patient Dispo - Admission to medical Present on Admission?: Yes History of Present Illness Chief Complaint: nausea/vomiting Primary Care Provider: Jesus Dyson DO Domingo Nguyen is a 50yo male with history fo HTN, HLP and GERD presenting with 7 days of illness. He reports 7 days ago developing nausea with some non-bloody/non-bilious emesis in the morning. He also reports muscle cramping i nitially involving his hands. His nausea persisted over the next several days and his cramping became more severe - also involving chest, abdomen and back. He states that the muscle cramps have become quite severe - he gets them in his legs with any prolonged standing. He also gets nausea with standing and positional changes. He reports body aches, dizziness and headache as well. He denies fever, chills, chest pain, palpitations, SOB, abdominal pain, diarrhea. He has a chronic cough productive for thick sputum which he is having worked up with allergy He had a routine office visit with his PCP 4 days ago and mentioned these complaints. Blood work was sent which was resulted today. Patient instructed to come to the ER for elevated liver studies and Cr. Patient uses Tylenol sparingly. Has history of tattoos obtained in reputable places. No history of blood transfusions. No known history of tick bites. 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 ER Course: Mg, NSS x 2L Allergies Allergy/AdvReac Type Severity Reaction Status Date / Time erythromycin base Allergy Severe seizures Verified 02/08/20 14:25 PREPOPIK Allergy Intermediate skin rash Uncoded 02/08/20 14:25 Home Medications Medication Instructions Recorded Confirmed Type glycopyrrolate 1 mg tablet 5 mg PO DAILY tab 02/05/19 11/25/20 History atorvastatin 20 mg tablet 20 mg PO DAILY #90 tab 08/11/20 11/25/20 Rx fenofibrate nanocrystallized 145 145 mg PO DAILY #90 tab 08/11/20 11/25/20 Rx mg tablet hydrochlorothiazide 25 mg tablet 25 mg PO DAILY #90 tab 08/11/20 11/25/20 Rx metoprolol tartrate 100 mg tablet 100 mg PO BID #180 tab 08/11/20 11/25/20 Rx olmesartan 40 mg tablet 40 mg PO DAILY #90 tab 08/11/20 11/25/20 Rx omeprazole 40 mg capsule,delayed 40 mg PO DAILY #90 cap 08/11/20 11/25/20 Rx release acetaminophen [Tylenol Extra 500 mg PO Q6H PRN 11/25/20 11/25/20 History Strength] Past Med/Surg History Medical History Cat allergies Chronic back pain Hyperlipidemia Hypertension Oral thrush Severe obstructive sleep apnea Surgical History History of hand surgery History of laminectomy Family History Mother Dementia Grandmother (Maternal) Dementia Aunt Dementia Denies family history of Colon cancer Ovarian cancer Prostate cancer Myocardial infarction Breast cancer Social History Smoking Status: Never smoker Second Hand Exposure: No; Hx Alcohol Use: Yes Alcohol type: hard liquor Alcohol Intake Frequency: 4 or More x per/Week Alcohol Intake Frequency Comment: 15-25 drinks/week Hx Substance Use: Yes Last Used Substance: Days (ago) Preferred Language: Estonian Communication Ability: Effective Visual Impairment: No Limitations Hearing Ability: Normal Beliefs That Will Affect Care: None marital status: Current Living Situation: Spouse current occupational status: other Other Information That Helps Us Care for You: No Feels Safe at Home: Yes Safety Concerns: Feels Safe At This Time Childhood Exposure to Second-Hand Smoke: Yes Diet Comment: no diet plans Dental Care, Regularly: Yes Physical Activity Frequency: Does not Exercise Seatbelt Use: always Sunscreen Use: No Do you think of yourself as: straight/heterosexual Assistive Devices: Glasses Review of Systems Review of Systems: All systems reviewed & are unremarkable except as noted in HPI & below Physical Exam Physical Exam: General: patient resting comfortably, NAD, non-toxic in appearance, AA&O x 4 Skin: warm, dry, intact, no rashes or lesions HEENT: NC/AT, PERRL, EOMI, anicteric sclera, conjunctiva without injection, external ear normal to inspection and nontender, nares patent, moist mucus membranes, dentition intact, no oropharyngeal lesions, neck supple, trachea midline, no LAD, no thyromegaly, no JVD Heart: +S1/S2, regular, no m/r/g Lungs: equal air entry bilaterally, no rales/rhonchi/wheezes Abd: +BS, soft, NT/ND, no masses/organomegaly/ascites Ext: warm, 2+ pulses in UE/LE bilaterally, no clubbing/cyanosis or edema Neuro: nonfocal, patient AA&O x 4, speech intact, no facial droop, moving all extremities on command with equal strength 5/5 Results & Data Results & Data ([facility]) Vital Signs (Past 12 Hours) Vital Signs Temp Pulse Pulse Resp BP BP Pulse Ox 11/25/20 20:30 72 22 137/96 97 11/25/20 19:30 71 19 162/95 H 99 11/25/20 19:15 67 15 162/102 H 98 11/25/20 18:36 65 18 159/114 H 100 11/25/20 17:00 98 11/25/20 16:25 37.3 C 76 20 172/101 H 100 Laboratory Results Laboratory Results WBC 8.59 K/uL (4.8-10.8) 11/25/20 16:40 RBC 4.26 M/uL (4.7-6.1) L 11/25/20 16:40 Hgb 14.6 g/dL (14.0-18.0) 11/25/20 16:40 Hct 39.9 % (42-52) L 11/25/20 16:40 MCV 93.7 fL (80-100) 11/25/20 16:40 MCH 34.3 pg (25-34) H 11/25/20 16:40 MCHC 36.6 g/dL (32-36) H 11/25/20 16:40 RDW Std Deviation 53.0 fL (36.4-46.3) H 11/25/20 16:40 RDW Coeff of Mona 15.4 % (11.5-14.5) H 11/25/20 16:40 Plt Count 314 K/uL (130-400) 11/25/20 16:40 MPV 9.3 fL (7.4-10.4) 11/25/20 16:40 Immature Gran % (Auto) 0.1 % 11/25/20 16:40 Neut % (Auto) 77.8 % 11/25/20 16:40 Lymph % (Auto) 10.9 % 11/25/20 16:40 [place] % (Auto) 10.5 % 11/25/20 16:40 Eos % (Auto) 0.5 % 11/25/20 16:40 Baso % (Auto) 0.2 % 11/25/20 16:40 Neut # (Auto) 6.68 K/uL (1.4-6.5) H 11/25/20 16:40 Lymph # (Auto) 0.94 K/uL (1.2-3.4) L 11/25/20 16:40 [place] # (Auto) 0.90 K/uL (0.11-0.59) H 11/25/20 16:40 Eos # (Auto) 0.04 K/uL (0-0.5) 11/25/20 16:40 Baso # (Auto) 0.02 K/uL (0-0.2) 11/25/20 16:40 Immature Gran # (Auto) 0.01 K/uL (0.00-0.02) 11/25/20 16:40 PT 10.5 Seconds (9.0-12.0) 11/25/20 16:40 INR 1.0 (0.9-1.1) 11/25/20 16:40 Sodium 124 mmol/L (136-145) L 11/25/20 16:40 Potassium 3.5 mmol/L (3.5-5.1) 11/25/20 16:40 Chloride 88 mmol/L (98-107) L 11/25/20 16:40 Carbon Dioxide 24 mmol/L (21-32) 11/25/20 16:40 Anion Gap 12.0 (3-11) H 11/25/20 16:40 BUN 42 mg/dl (7-18) H 11/25/20 16:40 Creatinine 2.67 mg/dl (0.6-1.4) H 11/25/20 16:40 Est Cr Clr Drug Dosing 36.9 ml/min 11/25/20 16:40 Est GFR ( Amer) 30.5 ml/min 11/25/20 16:40 Est GFR (Non-Af Amer) 26.3 ml/min 11/25/20 16:40 BUN/Creatinine Ratio 15.6 (10-20) 11/25/20 16:40 Glucose 103 mg/dl (70-99) H 11/25/20 16:40 Calcium 9.7 mg/dl (8.5-10.1) 11/25/20 16:40 Phosphorus 2.5 mg/dl (2.5-4.9) 11/25/20 16:40 Magnesium 1.5 mg/dl (1.8-2.4) L 11/25/20 16:40 Total Bilirubin 1.2 mg/dl (0.2-1) H 11/25/20 16:40 Direct Bilirubin 0.5 mg/dl (0-0.2) H 11/25/20 16:40 AST 253 U/L (15-37) H 11/25/20 16:40 ALT 175 U/L (12-78) H 11/25/20 16:40 Alkaline Phosphatase 43 U/L (45-117) L 11/25/20 16:40 Total Creatine Kinase 898 U/L (39-308) H 11/25/20 16:40 Troponin I < 0.015 ng/ml (0-0.045) 11/25/20 16:40 Total Protein 8.5 gm/dl (6.4-8.2) H 11/25/20 16:40 Albumin 4.8 gm/dl (3.4-5.0) 11/25/20 16:40 Globulin 3.7 gm/dl (2.5-4.0) 11/25/20 16:40 Albumin/Globulin Ratio 1.3 (0.9-2) 11/25/20 16:40 Lipase 557 U/L (73-393) H 11/25/20 16:40 TSH 0.671 uIu/ml (0.300-4.500) 11/25/20 16:40 Urine Color Dark Yellow 11/25/20 16:40 Urine Appearance Clear (Clear) 11/25/20 16:40 Urine pH 5.0 (4.5-7.5) 11/25/20 16:40 Ur Specific [place] 1.021 (1.000-1.030) 11/25/20 16:40 Urine Protein Negative (Negative) 11/25/20 16:40 Urine Glucose (UA) 2+ (Negative) H 11/25/20 16:40 Urine Ketones Trace (Negative) H 11/25/20 16:40 Urine Blood Negative (Negative) 11/25/20 16:40 Urine Nitrite Negative (Negative) 11/25/20 16:40 Urine Bilirubin Negative (Negative) 11/25/20 16:40 Urine Urobilinogen Negative (Negative) 11/25/20 16:40 Ur Leukocyte Esterase Negative (Negative) 11/25/20 16:40 Ur Random Creatinine 303.0 mg/dl 11/25/20 16:40 Ur Random Sodium 29 mmol/L 11/25/20 16:40 Acetaminophen < 2 ug/ml (10-30) L 11/25/20 22:47 Anaplasma Smear See Comment 11/25/20 16:40 Lyme Disease IgG Ab Negative (Negative) 11/25/20 16:40 Lyme Disease IgM Ab Negative (Negative) 11/25/20 16:40 COVID-19 Eval Order Covid19 at [facility] 11/25/20 17:00 SARS-CoV-2 (PCR) NEGATIVE (Negative) 11/25/20 17:00 Hep Bs Antigen Neg (Neg) 11/25/20 16:40 Hepatitis C Antibody Neg (Neg) 11/25/20 16:40 Impressions Chest X-Ray 11/25/20 16:47 XR chest 1V portable HISTORY: 50 years-old Male Chest Pain acute atypical chest pain COMPARISON: Chest radiographs 11/15/2016, chest CT 09/17/2017 TECHNIQUE: Portable AP view of the chest FINDINGS: Cardiomediastinal and hilar silhouettes are within normal limits. No pneumothorax, pleural effusion, airspace consolidation or overt pulmonary edema. Ill-defined 1.4 cm nodular opacity of the left lung base. Spondylitic spurring of the spine. IMPRESSION: 1. No acute process. 2. Ill-defined 1.4 cm nodular opacity of the left lung base is suggestive of probable summation density. A pulmonary nodule could appear similarly. ACT 112: Negative or not required by law. The above report was generated using voice recognition software. It may contain grammatical, syntax or spelling errors. Electronically signed by: Lázaro Torres M.D. 11/25/2020 5:08 PM Abdomen/Pelvis CT 11/25/20 17:[address] WITHOUT CONTRAST CT DOSE: 775.98 mGy.cm HISTORY: Acute kidney injury VENKATESH TECHNIQUE: Multiaxial CT images of the abdomen and pelvis were performed without contrast. A dose lowering technique was utilized adhering to the principles of ALARA. COMPARISON STUDY: Chest CT 09/17/2017 FINDINGS: The imaged inferior cardiac chambers are unremarkable. Calcified granuloma of the basal right lower lobe. No pneumatosis or pneumoperitoneum. Limited evaluation of the solid abdominal organs without the use of IV contrast. Unremarkable spleen with a few punctate calcifications. Unremarkable pancreas, adrenal glands and gallbladder. Hepatic steatosis with mild hepatomegaly. Unremarkable kidneys. No renal or ureteral calculi or hydronephrosis. Urinary bladder wall thickening with partial distention. There is no abdominal aortic aneurysm. No adenopathy. No bowel obstruction or bowel wall thickening. No ascites or mesenteric inflammation. High density material noted within the colon is also within a few loops of small bowel. Normal appendix. Unremarkable soft tissues. Avascular necrosis of the femoral heads. Degenerative changes of the pelvis and spine. IMPRESSION: 1. No urolith or obstructive uropathy. 2. No bowel obstruction or bowel wall thickening. Normal appendix. 3. Hepatic steatosis 4. Avascular necrosis of the femoral heads. ACT 112: Negative or not required by law. The above report was generated using voice recognition software. It may contain grammatical, syntax or spelling errors. Electronically signed by: Lázaro Torres M.D. 11/25/2020 6:27 PM ECG Additional Comments: EKG with NSR at 71, normla axis, UL=487, QRS=82, TKg=727, TWI present in anterior leads PG Care Time/CCT Total # of Minutes Spent Total Time Spent with Patient: Total time spent is greater than 50% in coordination of care (as documented) at patient's floor/unit and/or counseling patient: Coding Level of Care Code 84563 Initial Inpt Care Lvl 3 Diagnoses Acute kidney insufficiency N28.9 Elevated LFTs R94.5 Hypomagnesemia E83.42 Hyponatremia E87.1 Hyperhidrosis R61 Hypertension I10 Hypertension type: primary hypertension Hyperlipidemia E78.5 Hyperlipidemia type: unspecified GERD (gastroesophageal reflux disease) K21.9 Esophagitis presence: esophagitis presence not specified (1) Hypertension Hypertension type: primary hypertension Qualified Code(s): I10 - Essential (primary) hypertension (2) Hyperlipidemia Hyperlipidemia type: unspecified Qualified Code(s): E78.5 - Hyperlipidemia, unspecified (3) GERD (gastroesophageal reflux disease) Esophagitis presence: esophagitis presence not specified Qualified Code(s): K21.9 - Gastro-esophageal reflux disease without esophagitis
[2020-11-25] MEDS ORDERED: LORazepam 1 MG/2 ML VIAL IV PRN (22:37)
[2020-11-25] MEDS ORDERED: ONDANSETRON INJ 2 MG/ML 2 ML VIAL IV PRN (22:37)
[2020-11-25 22:59] LABS: Prothrombin Time 10.5 Seconds (9.0-12.0)
[2020-11-25] MEDS ORDERED: MAGNESIUM SULFATE / D5W 1 GM/100 ML BAG IV ONE (23:00)
[2020-11-25 23:14] LABS: Hepatitis B Surf Ag Rflx Conf Neg (Neg)
[2020-11-25] MEDS: DOXYCYCLINE HYCLATE 100 MG in DEXTROSE 5% 100 ML IV SCH (23:15)
[2020-11-25] MEDS: FOLIC ACID 1 MG TAB PO SCH (23:15)
[2020-11-25] MEDS: THIAMINE HCL 100 MG TAB PO SCH (23:16)
[2020-11-25 23:43] LABS: Hepatitis C IgG 13Yrs+Old_Rflx Neg (Neg)
[2020-11-26] MEDS ORDERED: METOPROLOL TARTRATE 100 MG TAB PO STA (00:29)
[2020-11-26] MEDS ORDERED: GLYCOPYRROLATE 1 MG TAB PO STA (00:29)
[2020-11-26] MEDS: CETIRIZINE HCL 10 MG TABLET PO SCH (00:53)
[2020-11-26 06:06] LABS: Basophils # (auto) 0.04 K/uL (0-0.2); Basophils % (auto) 0.6 %; Eosinophils # (auto) 0.11 K/uL (0-0.5); Eosinophils % (auto) 1.7 %; Hematocrit (blood only) 35.1 % (42-52); Hemoglobin 12.6 g/dL (14.0-18.0); Immature Granulocytes # (auto) 0.02 K/uL (0.00-0.02); Immature Granulocytes % (auto) 0.3 %; Lymphocytes % (auto) 18.5 %; Mean Corpuscular Hemoglobin 34.3 pg (25-34); Mean Corpuscular Hgb Conc 35.9 g/dL (32-36); Mean Corpuscular Volume 95.6 fL (80-100); Mean Platelet Volume 9.1 fL (7.4-10.4); Monocytes # (auto) 0.79 K/uL (0.11-0.59); Monocytes % (auto) 12.2 %; Neutrophils # (auto) 4.34 K/uL (1.4-6.5); Neutrophils % (auto) 66.7 %; Platelet Count 277 K/uL (130-400); RDW Coefficient of Variation 15.5 % (11.5-14.5); Red Blood Count 3.67 M/uL (4.7-6.1)
[2020-11-26 06:37] LABS: Albumin Level 3.7 gm/dl (3.4-5.0); Bilirubin Direct 0.4 mg/dl (0-0.2); Bilirubin,Total 0.8 mg/dl (0.2-1); Calcium 8.8 mg/dl (8.5-10.1); Creatinine Clr Calc Pharmacy 53.8 ml/min; Est GFR (African American) 47.8 ml/min; Est GFR (Non-African American) 41.2 ml/min; Magnesium 2.3 mg/dl (1.8-2.4); Potassium 3.9 mmol/L (3.5-5.1); Total Protein 6.6 gm/dl (6.4-8.2)
[2020-11-26] MEDS: ENOXAPARIN INJ 40 MG/0.4 ML SYR SQ SCH (08:44)
[2020-11-26] MEDS: GLYCOPYRROLATE 1 MG TAB PO SCH ×2 (08:45→21:22)
[2020-11-26] MEDS: FLUTICASONE PROPIONATE NA SPR 16 GM BTL SCH ×2 (08:45→08:51)
[2020-11-26] MEDS: THIAMINE HCL 100 MG TAB PO SCH (08:46)
[2020-11-26] MEDS: FOLIC ACID 1 MG TAB PO SCH (08:46)
[2020-11-26] MEDS: METOPROLOL TARTRATE 100 MG TAB PO SCH ×2 (08:47→21:24)
[2020-11-26] MEDS: PANTOprazole 40 MG TAB PO SCH (08:47)
[2020-11-26] MEDS ORDERED: GLYCOPYRROLATE 1 MG TAB PO SCH (09:00)
--- NOTE | 2020-11-26 10:15 | Electrocardiogram Report ---
Test Reason : Blood Pressure : / mmHG Vent. Rate : 071 BPM Atrial Rate : 071 BPM P-R Int : 160 ms QRS Dur : 082 ms QT Int : 408 ms P-R-T Axes : 056 041 011 degrees QTc Int : 443 ms Poor data quality, interpretation may be adversely affected Ectopi catrial versus accelerated junctional rhythm Abnormal ECG No previous ECGs available Confirmed by Carson Garcia ([id number]) on 11/26/2020 10:15:17 AM Referred By: Jesus Dyson Confirmed By:Cliff Garcia
[2020-11-26] MEDS: SODIUM CHLORIDE 0.9% 1000ML 1,000 ML IV SCH ×2 (10:54→21:15)
[2020-11-26] MEDS: DOXYCYCLINE HYCLATE 100 MG in DEXTROSE 5% 100 ML IV SCH ×2 (10:59→23:15)
[2020-11-26] MEDS ORDERED: MAGNESIUM HYDROXIDE SUSP 30 ML UDC PO ONE (12:15)
--- NOTE | 2020-11-26 14:28 | Hospitalist Progress Note ---
Date of Service November 26, 2020 Assessment & Plan (1) Acute kidney insufficiency: * Likely due to dehydration secondary to vomiting and decreased oral intake and exacerbated by ingestion of ibuprofen and his routine HCTZ/micardis for BP * Continue to withhold hydrochlorothiazide for now * Renal function is improving and approaching baseline. Continue with gentle IV hydration. Follow-up labs to trend (2) Elevated LFTs: * Exact etiology unclear * Patient does drink a fair amount of alcohol a week. In addition, given his flulike illness, he was taking a fair amount of Tylenol. This may be contributing to his elevated LFTs * In addition, patient is on chronic statin therapy (statin currently on hold) * He has been started empirically on doxycycline for possible anaplasmosis. I think this is reasonable given his clinical picture and transaminitis. Patient does not have thrombocytopenia * Although patient has a negative Alejo sign, he does have right upper quadrant discomfort and did have a mildly elevated lipase upon presentation. Will obt ain a right upper quadrant ultrasound to ensure that he does not have cholecystitis/choledocholithiasis * In addition, I have ordered a cytomegalovirus along with an EBV IgM/IgG (3) Hypomagnesemia: * Replaced and resolved (4) Hyponatremia: * Likely hypovolemic hyponatremia due to dehydration from and decreased oral intake compounded by his HCTZ. * Sodium is improving and approaching baseline * Continue with holding HCTZ and continue gentle IV hydration (5) Hyperhidrosis: Patient reports hyperhidrosis for which he takes Robinul -Robimul 3mg po qAM and 2mg po qHS (6) Hypertension: Chronic. Well controlled -Continue Metoprolol 100mg po BID -Hold Olmesartan and HCTZ as above -Continue to monitor (7) Hyperlipidemia: Chronic -Hold Fenofibrate and Atorvastin for now (8) GERD (gastroesophageal reflux disease): Chronic -Continue Protonix 40mg po daily There is concern for an ill-defined nodular density in the left lung base. Ann ent did have a productive cough of green sputum which has since improved overnight. He does not have any adventitious breath sounds on exam. I am not overly convinced that he has an acute process; however, he is currently on doxycycline. This would provide adequate coverage for community-acquired pneumonia. ppx - Lovenox 40 Disposition: Continued inpatient stay with plan for right upper quadrant ultrasound, continued IV hydration, further labs. Regarding the findings of avascular necrosis on CT imagingwill need to be referred to Ortho as an outpatient. Plan of care to be discussed with Dr. Gomez. Further orders as warranted. Admission and Anticipated Discharge Date Admission Date: November 25, 2020 Subjective Patient seen on daily rounds today. He is a 50-year-old white male with past medical history of hyperhidrosis, asthma, HTN, and HLD. He was hospitalized late last evening with VENKATESH, transaminitis, and hyponatremia related to a flulike illness. He reports flulike symptoms ongoing for approximately 3 to 5 days. Symptoms include subjective F/C, headaches, body aches, nausea and intractable vomiting. In addition, he reports that he has had a productive cough of yellow sputum. He does have a chronic cough but it is typically not productive. He denies shortness of breath. No skin lesions or rashes. He was seen by his PCP this past Saturday for routine labs and was sent to the ED for acute kidney injury. In the ED he was found to have hyponatremia 124, a BUN/creatinine of 42 and 2.67, his magnesium was low at 1.5. Lipase was slightly elevated at 567. He had transaminitis and hyperbilirubinemia with a total bilirubin of 1.2, AST of 257, and an ALT of 175 His CK was elevated 898. Covid PCR test was negative Patient was not hypoxic or febrile. He was hemodynamically stable Chest x-ray showed ill-defined nodular density in the left lung base. CT of the abdomen and pelvis showed no acute intra-abdominal process but avascular necrosis of the femoral heads. No ill contacts at home. Lives with his spouse who is well. Denies any known history of tick bite. Patient admits to taking an extensive amount of Tylenol alternating with ibuprofen over the past 4 to 5 days. In addition, he does drink alcohol (approximately 8-12 mixed drinks a week). He was hospitalized and hydrated with IV fluids. All nephrotoxic agents have been on hold including his hydrochlorothiazide. Patient was started empirically on doxycycline for potential anaplasmosis. His Lyme titer was negative. Anaplasmosis screen was negative. Anaplasmosis and babesiosis PCR tests are pending. His total bilirubin has normalized. AST/ALT are downtrending. Sodium level has improved. Creatinine is improving. Magnesium has been replaced and resolved. CK is downtrending and currently 547. Review of Systems Review of Systems: + Subjective F/C, headache, myalgias, arthralgias, productive cough of yellow sputum, abdominal cramping, and vomiting. Otherwise he denies nasal congestion, sore throat, shortness of breath, dyspnea on exertion, diarrhea, melena, hematochezia, skin lesions or rashes. Physical Exam Physical Exam: General: Resting comfortably in his hospital bed. A&O X3 NAD. Cardiac: RRR without M/G/R Lungs: CTA without W/R/R Abdomen: Normoactive X4. With mild right upper quadrant discomfort elicited. Negative Alejo sign Extremities: No peripheral clubbing cyanosis or edema Skin. No obvious skin lesions or rashes Results & Data Results & Data ([facility]) Vital Signs (Past 12 Hours) Vital Signs Temp Pulse Resp BP Pulse Ox 11/26/20 07:49 36.7 C 67 16 141/91 H 97 Laboratory Results Laboratory Results - last 24 hr 11/25/20 11/25/20 11/25/20 16:40 16:40 16:40 WBC 8.59 RBC 4.26 L Hgb 14.6 Hct 39.9 L MCV 93.7 MCH 34.3 H MCHC 36.6 H RDW Std Deviation 53.0 H RDW Coeff of Mona 15.4 H Plt Count 314 MPV 9.3 Immature Gran % (Auto) 0.1 Neut % (Auto) 77.8 Lymph % (Auto) 10.9 [place] % (Auto) 10.5 Eos % (Auto) 0.5 Baso % (Auto) 0.2 Neut # (Auto) 6.68 H Lymph # (Auto) 0.94 L [place] # (Auto) 0.90 H Eos # (Auto) 0.04 Baso # (Auto) 0.02 Immature Gran # (Auto) 0.01 PT INR Sodium 124 L Potassium 3.5 Chloride 88 L Carbon Dioxide 24 Anion Gap 12.0 H BUN 42 H Creatinine 2.67 H Est Cr Clr Drug Dosing 36.9 Est GFR ( Amer) 30.5 Est GFR (Non-Af Amer) 26.3 BUN/Creatinine Ratio 15.6 Glucose 103 H Osmolality Calcium 9.7 Phosphorus 2.5 Magnesium 1.5 L Total Bilirubin 1.2 H Direct Bilirubin 0.5 H AST 253 H ALT 175 H Alkaline Phosphatase 43 L Total Creatine Kinase 898 H Troponin I < 0.015 Total Protein 8.5 H Albumin 4.8 Globulin 3.7 Albumin/Globulin Ratio 1.3 Lipase 557 H TSH 0.671 Urine Color Urine Appearance Urine pH Ur Specific [place] Urine Protein Urine Glucose (UA) Urine Ketones Urine Blood Urine Nitrite Urine Bilirubin Urine Urobilinogen Ur Leukocyte Esterase Urine Osmolality Ur Random Creatinine Ur Random Sodium Ur Random Urea Nitrogn Acetaminophen Anaplasma Smear See Comment A. phagocytophilum DNA Babesia microti IgG Ab Babesia microti IgM Ab Babesia Interpretation Lyme Disease IgG Ab Negative Lyme Disease IgM Ab Negative COVID-19 Eval Order SARS-CoV-2 (PCR) CMV IgM Ab CMV IgG Ab/TORCH EBV Capsid Ag IgG Ab EBV Capsid Ag IgM Ab EBV EA Restrict+Diffuse EBV Nuclear Antigen Ab EBV Antibody Interp Hepatitis A IgM Ab Hep Bs Antigen Hep B Core IgM Ab Hepatitis C Antibody 11/25/20 11/25/20 11/25/20 16:40 16:40 16:40 WBC RBC Hgb Hct MCV MCH MCHC RDW Std Deviation RDW Coeff of Mona Plt Count MPV Immature Gran % (Auto) Neut % (Auto) Lymph % (Auto) [place] % (Auto) Eos % (Auto) Baso % (Auto) Neut # (Auto) Lymph # (Auto) [place] # (Auto) Eos # (Auto) Baso # (Auto) Immature Gran # (Auto) PT INR Sodium Potassium Chloride Carbon Dioxide Anion Gap BUN Creatinine Est Cr Clr Drug Dosing Est GFR ( Amer) Est GFR (Non-Af Amer) BUN/Creatinine Ratio Glucose Osmolality Calcium Phosphorus Magnesium Total Bilirubin Direct Bilirubin AST ALT Alkaline Phosphatase Total Creatine Kinase Troponin I Total Protein Albumin Globulin Albumin/Globulin Ratio Lipase TSH Urine Color Dark Yellow Urine Appearance Clear Urine pH 5.0 Ur Specific [place] 1.021 Urine Protein Negative Urine Glucose (UA) 2+ H Urine Ketones Trace H Urine Blood Negative Urine Nitrite Negative Urine Bilirubin Negative Urine Urobilinogen Negative Ur Leukocyte Esterase Negative Urine Osmolality Ur Random Creatinine 303.0 Ur Random Sodium 29 Ur Random Urea Nitrogn Acetaminophen Anaplasma Smear A. phagocytophilum DNA Pending Babesia microti IgG Ab Babesia microti IgM Ab Babesia Interpretation Lyme Disease IgG Ab Lyme Disease IgM Ab COVID-19 Eval Order SARS-CoV-2 (PCR) CMV IgM Ab CMV IgG Ab/TORCH EBV Capsid Ag IgG Ab EBV Capsid Ag IgM Ab EBV EA Restrict+Diffuse EBV Nuclear Antigen Ab EBV Antibody Interp Hepatitis A IgM Ab Hep Bs Antigen Hep B Core IgM Ab Hepatitis C Antibody 11/25/20 11/25/20 11/25/20 16:40 16:40 16:40 WBC RBC Hgb Hct MCV MCH MCHC RDW Std Deviation RDW Coeff of Mona Plt Count MPV Immature Gran % (Auto) Neut % (Auto) Lymph % (Auto) [place] % (Auto) Eos % (Auto) Baso % (Auto) Neut # (Auto) Lymph # (Auto) [place] # (Auto) Eos # (Auto) Baso # (Auto) Immature Gran # (Auto) PT 10.5 INR 1.0 Sodium Potassium Chloride Carbon Dioxide Anion Gap BUN Creatinine Est Cr Clr Drug Dosing Est GFR ( Amer) Est GFR (Non-Af Amer) BUN/Creatinine Ratio Glucose Osmolality 277 L Calcium Phosphorus Magnesium Total Bilirubin Direct Bilirubin AST ALT Alkaline Phosphatase Total Creatine Kinase Troponin I Total Protein Albumin Globulin Albumin/Globulin Ratio Lipase TSH Urine Color Urine Appearance Urine pH Ur Specific [place] Urine Protein Urine Glucose (UA) Urine Ketones Urine Blood Urine Nitrite Urine Bilirubin Urine Urobilinogen Ur Leukocyte Esterase Urine Osmolality Ur Random Creatinine Ur Random Sodium Ur Random Urea Nitrogn Acetaminophen Anaplasma Smear A. phagocytophilum DNA Babesia microti IgG Ab Babesia microti IgM Ab Babesia Interpretation Lyme Disease IgG Ab Lyme Disease IgM Ab COVID-19 Eval Order SARS-CoV-2 (PCR) CMV IgM Ab CMV IgG Ab/TORCH EBV Capsid Ag IgG Ab EBV Capsid Ag IgM Ab EBV EA Restrict+Diffuse EBV Nuclear Antigen Ab EBV Antibody Interp Hepatitis A IgM Ab Hep Bs Antigen Neg Hep B Core IgM Ab Hepatitis C Antibody Neg 11/25/20 11/25/20 11/25/20 17:00 17:00 22:47 WBC RBC Hgb Hct MCV MCH MCHC RDW Std Deviation RDW Coeff of Mona Plt Count MPV Immature Gran % (Auto) Neut % (Auto) Lymph % (Auto) [place] % (Auto) Eos % (Auto) Baso % (Auto) Neut # (Auto) Lymph # (Auto) [place] # (Auto) Eos # (Auto) Baso # (Auto) Immature Gran # (Auto) PT INR Sodium Potassium Chloride Carbon Dioxide Anion Gap BUN Creatinine Est Cr Clr Drug Dosing Est GFR ( Amer) Est GFR (Non-Af Amer) BUN/Creatinine Ratio Glucose Osmolality Calcium Phosphorus Magnesium Total Bilirubin Direct Bilirubin AST ALT Alkaline Phosphatase Total Creatine Kinase Troponin I Total Protein Albumin Globulin Albumin/Globulin Ratio Lipase TSH Urine Color Urine Appearance Urine pH Ur Specific [place] Urine Protein Urine Glucose (UA) Urine Ketones Urine Blood Urine Nitrite Urine Bilirubin Urine Urobilinogen Ur Leukocyte Esterase Urine Osmolality Ur Random Creatinine Ur Random Sodium Ur Random Urea Nitrogn Acetaminophen Anaplasma Smear A. phagocytophilum DNA Babesia microti IgG Ab Pending Babesia microti IgM Ab Pending Babesia Interpretation Pending Lyme Disease IgG Ab Lyme Disease IgM Ab COVID-19 Eval Order Covid19 at [facility] SARS-CoV-2 (PCR) NEGATIVE CMV IgM Ab CMV IgG Ab/TORCH EBV Capsid Ag IgG Ab EBV Capsid Ag IgM Ab EBV EA Restrict+Diffuse EBV Nuclear Antigen Ab EBV Antibody Interp Hepatitis A IgM Ab Pending Hep Bs Antigen Hep B Core IgM Ab Pending Hepatitis C Antibody 11/25/20 11/26/20 11/26/20 22:47 02:20 02:20 WBC RBC Hgb Hct MCV MCH MCHC RDW Std Deviation RDW Coeff of Mona Plt Count MPV Immature Gran % (Auto) Neut % (Auto) Lymph % (Auto) [place] % (Auto) Eos % (Auto) Baso % (Auto) Neut # (Auto) Lymph # (Auto) [place] # (Auto) Eos # (Auto) Baso # (Auto) Immature Gran # (Auto) PT INR Sodium Potassium Chloride Carbon Dioxide Anion Gap BUN Creatinine Est Cr Clr Drug Dosing Est GFR ( Amer) Est GFR (Non-Af Amer) BUN/Creatinine Ratio Glucose Osmolality Calcium Phosphorus Magnesium Total Bilirubin Direct Bilirubin AST ALT Alkaline Phosphatase Total Creatine Kinase Troponin I Total Protein Albumin Globulin Albumin/Globulin Ratio Lipase TSH Urine Color Urine Appearance Urine pH Ur Specific [place] Urine Protein Urine Glucose (UA) Urine Ketones Urine Blood Urine Nitrite Urine Bilirubin Urine Urobilinogen Ur Leukocyte Esterase Urine Osmolality 312 L Ur Random Creatinine Ur Random Sodium Ur Random Urea Nitrogn 518 Acetaminophen < 2 L Anaplasma Smear A. phagocytophilum DNA Babesia microti IgG Ab Babesia microti IgM Ab Babesia Interpretation Lyme Disease IgG Ab Lyme Disease IgM Ab COVID-19 Eval Order SARS-CoV-2 (PCR) CMV IgM Ab CMV IgG Ab/TORCH EBV Capsid Ag IgG Ab EBV Capsid Ag IgM Ab EBV EA Restrict+Diffuse EBV Nuclear Antigen Ab EBV Antibody Interp Hepatitis A IgM Ab Hep Bs Antigen Hep B Core IgM Ab Hepatitis C Antibody 11/26/20 11/26/20 11/26/20 02:20 05:46 05:46 WBC 6.50 RBC 3.67 L Hgb 12.6 L Hct 35.1 L MCV 95.6 MCH 34.3 H MCHC 35.9 RDW Std Deviation 54.0 H RDW Coeff of Mona 15.5 H Plt Count 277 MPV 9.1 Immature Gran % (Auto) 0.3 Neut % (Auto) 66.7 Lymph % (Auto) 18.5 [place] % (Auto) 12.2 Eos % (Auto) 1.7 Baso % (Auto) 0.6 Neut # (Auto) 4.34 Lymph # (Auto) 1.20 [place] # (Auto) 0.79 H Eos # (Auto) 0.11 Baso # (Auto) 0.04 Immature Gran # (Auto) 0.02 PT INR Sodium 130 L Potassium 3.9 Chloride 97 L Carbon Dioxide 26 Anion Gap 7.0 BUN 39 H Creatinine 1.84 H D Est Cr Clr Drug Dosing 53.8 Est GFR ( Amer) 47.8 Est GFR (Non-Af Amer) 41.2 BUN/Creatinine Ratio 21.0 H Glucose 97 Osmolality Calcium 8.8 Phosphorus Magnesium 2.3 Total Bilirubin 0.8 Direct Bilirubin 0.4 H AST 183 H ALT 140 H Alkaline Phosphatase 34 L Total Creatine Kinase 547 H Troponin I Total Protein 6.6 D Albumin 3.7 Globulin Albumin/Globulin Ratio Lipase TSH Urine Color Urine Appearance Urine pH Ur Specific [place] Urine Protein Urine Glucose (UA) Urine Ketones Urine Blood Urine Nitrite Urine Bilirubin Urine Urobilinogen Ur Leukocyte Esterase Urine Osmolality Ur Random Creatinine Ur Random Sodium 27 Ur Random Urea Nitrogn Acetaminophen Anaplasma Smear A. phagocytophilum DNA Babesia microti IgG Ab Babesia microti IgM Ab Babesia Interpretation Lyme Disease IgG Ab Lyme Disease IgM Ab COVID-19 Eval Order SARS-CoV-2 (PCR) CMV IgM Ab CMV IgG Ab/TORCH EBV Capsid Ag IgG Ab EBV Capsid Ag IgM Ab EBV EA Restrict+Diffuse EBV Nuclear Antigen Ab EBV Antibody Interp Hepatitis A IgM Ab Hep Bs Antigen Hep B Core IgM Ab Hepatitis C Antibody 11/26/20 11/26/20 10:14 10:14 WBC RBC Hgb Hct MCV MCH MCHC RDW Std Deviation RDW Coeff of Mona Plt Count MPV Immature Gran % (Auto) Neut % (Auto) Lymph % (Auto) [place] % (Auto) Eos % (Auto) Baso % (Auto) Neut # (Auto) Lymph # (Auto) [place] # (Auto) Eos # (Auto) Baso # (Auto) Immature Gran # (Auto) PT INR Sodium Potassium Chloride Carbon Dioxide Anion Gap BUN Creatinine Est Cr Clr Drug Dosing Est GFR ( Amer) Est GFR (Non-Af Amer) BUN/Creatinine Ratio Glucose Osmolality Calcium Phosphorus Magnesium Total Bilirubin Direct Bilirubin AST ALT Alkaline Phosphatase Total Creatine Kinase Troponin I Total Protein Albumin Globulin Albumin/Globulin Ratio Lipase TSH Urine Color Urine Appearance Urine pH Ur Specific [place] Urine Protein Urine Glucose (UA) Urine Ketones Urine Blood Urine Nitrite Urine Bilirubin Urine Urobilinogen Ur Leukocyte Esterase Urine Osmolality Ur Random Creatinine Ur Random Sodium Ur Random Urea Nitrogn Acetaminophen Anaplasma Smear A. phagocytophilum DNA Babesia microti IgG Ab Babesia microti IgM Ab Babesia Interpretation Lyme Disease IgG Ab Lyme Disease IgM Ab COVID-19 Eval Order SARS-CoV-2 (PCR) CMV IgM Ab Pending CMV IgG Ab/TORCH Pending EBV Capsid Ag IgG Ab Pending EBV Capsid Ag IgM Ab Pending EBV EA Restrict+Diffuse Pending EBV Nuclear Antigen Ab Pending EBV Antibody Interp Pending Hepatitis A IgM Ab Hep Bs Antigen Hep B Core IgM Ab Hepatitis C Antibody Diagnostic Findings Imaging done in the ED reviewed CXR: Ill-defined nodular density in the left lung base CT of the abdomen and pelvis: No acute intra-abdominal process. Avascular necrosis of the femoral heads PG Care Time/CCT Total # of Minutes Spent Total Time Spent with Patient: Total time spent is greater than 50% in coordination of care (as documented) at patient's floor/unit and/or counseling patient: Coding [place] [address] Subseq Hosp Care Lvl 3 Patient Type Established History Detailed Exam Detailed Medical Decision Making Moderate Complexity Diagnoses Acute kidney insufficiency N28.9 Elevated LFTs R94.5 Hypomagnesemia E83.42 Hyponatremia E87.1 Hyperhidrosis R61 Hypertension I10 Hypertension type: primary hypertension Hyperlipidemia E78.5 Hyperlipidemia type: unspecified GERD (gastroesophageal reflux disease) K21.9 Esophagitis presence: esophagitis presence not specified (1) Hypertension Hypertension type: primary hypertension Qualified Code(s): I10 - Essential (primary) hypertension (2) Hyperlipidemia Hyperlipidemia type: unspecified Qualified Code(s): E78.5 - Hyperlipidemia, unspecified (3) GERD (gastroesophageal reflux disease) Esophagitis presence: esophagitis presence not specified Qualified Code(s): K21.9 - Gastro-esophageal reflux disease without esophagitis
[2020-11-26] MEDS ORDERED: MAGNESIUM HYDROXIDE SUSP 30 ML UDC ONE (18:31)
--- NOTE | 2020-11-26 19:04 | Ultrasound Report ---
US liver CLINICAL HISTORY: 50 years-old Male presenting with gb/liver and ducts. TECHNIQUE: Real-time grayscale ultrasound imaging of the upper abdomen was performed for a focused ev aluation at the site of clinical concern. COMPARISON: None. Correlation is made with CT of the abdomen and pelvis performed yesterday. FINDINGS: Pancreas: Visualized portion of the pancreas shows no evidence of focal lesions. Liver is measuring 17 cm in size and shows diffuse increase in echogenicity and coarsening of echotex ture of its parenchyma. Curvilinear hypoechoic area within liver parenchyma adjacent to the gallbladd er fossa was not visualized on the prior CT, shows no evidence of blood flow and measured 0.9 x 1.2 x 1.0 cm in size. Gallbladder is fluid-filled without evidence of intraluminal calculi. There is focal area of increase d echogenicity with posterior shadowing on nondependent portion of the gallbladder wall likely repres enting area of fat accumulation/adenomyomatosis. There is questionable focal thickening of the gallbl adder wall adjusted to this region. Right kidney is measuring 11.5 cm in length and shows no evidence of hydronephrosis. IMPRESSION: 1. Hepatic steatosis. Questionable hypoechoic lesion within liver parenchyma, close to gallbladder f lizbeth was not seen during prior CT might represent focally dilated biliary duct versus other etiology. Attention on follow-up imaging. 2. Possibly a adenomyomatosis within gallbladder. Questionable focal thickening of the gallbladder w all. Follow-up evaluation with contrast-enhanced CT of the abdomen on nonemergency basis is suggested . ACT 112: Positive. There are findings on this exam that require communication between the performing entity and the patient following Patient Test Result Information Act ([place] Act 112) guidelines. Electronically signed by: Mikala Basurto DO 11/26/2020 7:03 PM
[2020-11-26] MEDS ORDERED: ACETAMINOPHEN 325 MG TAB PO PRN (20:45)
[2020-11-27 06:02] LABS: Basophils # (auto) 0.04 K/uL (0-0.2); Basophils % (auto) 0.8 %; Eosinophils # (auto) 0.17 K/uL (0-0.5); Eosinophils % (auto) 3.4 %; Hematocrit (blood only) 35.8 % (42-52); Hemoglobin 12.7 g/dL (14.0-18.0); Immature Granulocytes # (auto) 0.01 K/uL (0.00-0.02); Immature Granulocytes % (auto) 0.2 %; Lymphocytes # (auto) 1.44 K/uL (1.2-3.4); Lymphocytes % (auto) 28.6 %; Mean Corpuscular Hgb Conc 35.5 g/dL (32-36); Monocytes # (auto) 0.78 K/uL (0.11-0.59); Monocytes % (auto) 15.5 %; Neutrophils # (auto) 2.59 K/uL (1.4-6.5); Neutrophils % (auto) 51.5 %; Platelet Count 273 K/uL (130-400); RDW Coefficient of Variation 15.7 % (11.5-14.5); RDW Standard Deviation 54.9 fL (36.4-46.3); Red Blood Count 3.73 M/uL (4.7-6.1); White Blood Count 5.03 K/uL (4.8-10.8)
[2020-11-27 06:35] LABS: Albumin Globulin Ratio 1.2 (0.9-2); Albumin Level 3.3 gm/dl (3.4-5.0); BUN Creatinine Ratio 21.2 (10-20); Bilirubin,Total 0.5 mg/dl (0.2-1); Calcium 8.3 mg/dl (8.5-10.1); Creatinine Clr Calc Pharmacy 72.8 ml/min; Est GFR (African American) 68.8 ml/min; Est GFR (Non-African American) 59.4 ml/min; Globulin 2.7 gm/dl (2.5-4.0); Magnesium 2.3 mg/dl (1.8-2.4); Potassium 4.1 mmol/L (3.5-5.1)
[2020-11-27] MEDS: SODIUM CHLORIDE 0.9% 1000ML 1,000 ML IV SCH ×2 (06:54→15:45)
[2020-11-27] MEDS: FLUTICASONE PROPIONATE NA SPR 16 GM BTL SCH (09:01)
[2020-11-27] MEDS: METOPROLOL TARTRATE 100 MG TAB PO SCH ×2 (09:02→22:07)
[2020-11-27] MEDS: PANTOprazole 40 MG TAB PO SCH (09:02)
[2020-11-27] MEDS: THIAMINE HCL 100 MG TAB PO SCH (09:02)
[2020-11-27] MEDS: CETIRIZINE HCL 10 MG TABLET PO SCH (09:03)
[2020-11-27] MEDS: FOLIC ACID 1 MG TAB PO SCH (09:03)
[2020-11-27] MEDS: GLYCOPYRROLATE 1 MG TAB PO SCH ×2 (09:04→22:07)
[2020-11-27] MEDS: ENOXAPARIN INJ 40 MG/0.4 ML SYR SQ SCH (09:05)
[2020-11-27] MEDS: DOXYCYCLINE HYCLATE 100 MG in DEXTROSE 5% 100 ML IV SCH (12:07)
--- NOTE | 2020-11-27 14:37 | Hospitalist Progress Note ---
Date of Service November 27, 2020 Assessment & Plan (1) Acute kidney insufficiency: * Likely due to dehydration secondary to vomiting and decreased oral intake and exacerbated by ingestion of ibuprofen and his routine HCTZ/micardis for BP * Continue to withhold hydrochlorothiazide for now * Renal function improved (2) Elevated LFTs: * Exact etiology unclear- suspect multifactorial (ETOH use. APAP use. Statin therapy. ? choledocholithiasis, ?viral syndrome-CMV/EBV/acute hepatitis panel ordered and pending) * Initially, anaplasmosis was high in the differential, however I am suspicious that patient may have underlying gallbladder issues * Order MRCP * Based on results, will likely transition doxycycline to Cipro/Flagyl. May need to consult GI versus general surgery based on MRCP results * Although lipase is elevated, he does not have abdominal pain. He will need to be n.p.o. for MRCP. If no evidence of pancreatitis seen on imaging, okay to continue diet for now (3) Hypomagnesemia: * Replaced and resolved (4) Hyponatremia: * Likely hypovolemic hyponatremia due to dehydration from and decreased oral intake compounded by his HCTZ. * Sodium now normal * Continue with holding HCTZ for now (5) Hyperhidrosis: Patient reports hyperhidrosis for which he takes Robinul -Robimul 3mg po qAM and 2mg po qHS (6) Hypertension: Chronic. Well controlled -Continue Metoprolol 100mg po BID -Hold Olmesartan and HCTZ as above -Continue to monitor (7) Hyperlipidemia: Chronic -Hold Fenofibrate and Atorvastin for now (8) GERD (gastroesophageal reflux disease): Chronic -Continue Protonix 40mg po daily ppx - Lovenox 40 Disposition: Continued inpatient stay until MRCP performed/reviewed. Further orders based on report Regarding the findings of avascular necrosis on CT imagingwill need to be referred to Ortho as an outpatient. Plan of care to be discussed with Dr. Gomez. Further orders as warranted. Admission and Anticipated Discharge Date Admission Date: November 25, 2020 Subjective Patient seen on daily rounds today. Remains empirically on Doxycycline for ? anaplasmosis +/- CAP Peripheral smear for anaplasmosis negative. CXR showed ill defined density in the LLL; however, wasn't seen on CT of the abd/pelvis. No CT of the lung obtained. Pt did reports increased cough but that has since resolved He had vague flu like symptoms that has since resolved. On exam yesterday, he did have some mild RUQ tenderness. Given this, the reports of "flu like symptom s", vomiting and intermittent abd pain and his transaminitis/elevated lipase- a RUQ US was ordered that is suggesting a ? dilated biliary duct with ? adenomyomatosis within the GB and ? GB wall thickening lipase is further elevated today; however, patient does not have any c/o abd pain, N/V. He was started on oral intake yesterday and is tolerating food. Renal function and LFT's improving. Review of Systems Review of Systems: All systems reviewed & are unremarkable except as noted in HPI & below Denies F/C, CO, SOB, abd pain, N/V, D/C, GI/ symptoms Physical Exam Constitutional: WD/WN, vitals as above does not appear ill or toxic Respiratory: normal respiratory effort, lungs clear to auscultation Cardiovascular: RRR, no murmur, no edema Gastrointestinal (Abdomen): normal bowel sounds, soft, nontender, no hepatosplenomegaly Musculoskeletal: no cyanosis or clubbing, extremities motor strength 5/5 Neurologic: CN's II-XI intact bilaterally Results & Data Results & Data ([facility]) Vital Signs (Past 12 Hours) Vital Signs Temp Pulse Resp BP Pulse Ox 11/27/20 07:22 36.8 C 69 16 118/78 97 Laboratory Results 11/27/20 05:34 11/27/20 05:34 Diagnostic Findings 11/26/2020 Right upper quadrant ultrasound: IMPRESSION: 1. Hepatic steatosis. Questionable hypoechoic lesion within liver parenchyma, close to gallbladder fossa was not seen during prior CT might represent focally dilated biliary duct versus other etiology. Attention on follow-up imaging. 2. Possibly a adenomyomatosis within gallbladder. Questionable focal thickening of the gallbladder wall. Follow-up evaluation with contrast-enhanced CT of the abdomen on nonemergency basis is suggested. PG Care Time/CCT Total # of Minutes Spent Total Time Spent with Patient: Total time spent is greater than 50% in coordination of care (as documented) at patient's floor/unit and/or counseling patient: [place] [address] Subseq Hosp Care Lvl 2 Patient Type Established History Expanded Problem Focused Exam Expanded Problem Focused Medical Decision Making Moderate Complexity Diagnoses Acute kidney insufficiency N28.9 Elevated LFTs R94.5 Hypomagnesemia E83.42 Hyponatremia E87.1 Hyperhidrosis R61 Hypertension I10 Hypertension type: primary hypertension Hyperlipidemia E78.5 Hyperlipidemia type: unspecified GERD (gastroesophageal reflux disease) K21.9 Esophagitis presence: esophagitis presence not specified (1) Hypertension Hypertension type: primary hypertension Qualified Code(s): I10 - Essential (primary) hypertension (2) Hyperlipidemia Hyperlipidemia type: unspecified Qualified Code(s): E78.5 - Hyperlipidemia, unspecified (3) GERD (gastroesophageal reflux disease) Esophagitis presence: esophagitis presence not specified Qualified Code(s): K21.9 - Gastro-esophageal reflux disease without esophagitis
--- NOTE | 2020-11-27 15:34 | Magnetic Resonance Report ---
MR MRCP HISTORY: 50 years-old Male abnormal RUQ US acute renal failure. Acute generalized abdominal pain wit h elevated LFTs COMPARISON: CT abdomen and pelvis 11/25/2020 TECHNIQUE: MRCP was obtained according to institutional protocol without the use of IV contrast. 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 Clear lung bases. The spleen , pancreas, adrenal glands and kidneys are unremarkable. There is no abdominal aortic aneurysm. No ad enopathy. Hepatic steatosis. No hepatic mass identified. The gallbladder is within normal limits. No cholelithiasis identified. No biliary ductal dilation or choledocholithiasis. Tiny T2 hyperintense cy stic focus of the bladder fundus may represent adenomyomatosis. No pancreatic divisum. IMPRESSION: 1. Mildly motion degraded exam. 2. No cholelithiasis, biliary ductal dilation or choledocholithiasis. ACT 112: Negative or not required by law. The above report was generated using voice recognition software. It may contain grammatical, syntax o r spelling errors. Electronically signed by: Lázaro Torres M.D. 11/27/2020 3:33 PM
[2020-11-28 07:11] LABS: Basophils # (auto) 0.04 K/uL (0-0.2); Basophils % (auto) 0.8 %; Eosinophils # (auto) 0.25 K/uL (0-0.5); Eosinophils % (auto) 4.7 %; Hematocrit (blood only) 35.2 % (42-52); Hemoglobin 12.2 g/dL (14.0-18.0); Immature Granulocytes # (auto) 0.01 K/uL (0.00-0.02); Immature Granulocytes % (auto) 0.2 %; Lymphocytes # (auto) 1.28 K/uL (1.2-3.4); Lymphocytes % (auto) 24.1 %; Mean Corpuscular Hemoglobin 33.7 pg (25-34); Mean Corpuscular Hgb Conc 34.7 g/dL (32-36); Mean Corpuscular Volume 97.2 fL (80-100); Mean Platelet Volume 8.7 fL (7.4-10.4); Monocytes # (auto) 0.69 K/uL (0.11-0.59); Neutrophils # (auto) 3.05 K/uL (1.4-6.5); Neutrophils % (auto) 57.2 %; Platelet Count 295 K/uL (130-400); RDW Coefficient of Variation 15.7 % (11.5-14.5); RDW Standard Deviation 56.3 fL (36.4-46.3); Red Blood Count 3.62 M/uL (4.7-6.1); White Blood Count 5.32 K/uL (4.8-10.8)
--- NOTE | 2020-11-28 07:24 | Ultrasound Report ---
LEFT UPPER EXTREMITY VENOUS DOPPLER HISTORY: swelling r/o DVT COMPARISON STUDY: None. FINDINGS: The left internal jugular vein is patent. There is normal flow within the left subclavian v ein. There is normal flow and compressibility within the left axillary, basilic, brachial, radial, an d ulnar veins. There is occlusive superficial thrombus within the left cephalic vein from the antecub ital fossa to the mid forearm. This measures approximately 10 cm in length. IMPRESSION: No DVT within the left upper extremity. Superficial thrombus within the left cephalic vein. ACT 112: Negative or not required by law. Electronically signed by: Darron Zamarripa M.D. 11/28/2020 7:23 AM
[2020-11-28 07:36] LABS: Albumin Level 3.4 gm/dl (3.4-5.0); Calcium 8.4 mg/dl (8.5-10.1); Est GFR (African American) 74.8 ml/min; Est GFR (Non-African American) 64.5 ml/min
[2020-11-28 07:39] LABS: Albumin Globulin Ratio 1.1 (0.9-2); Bilirubin,Total 0.6 mg/dl (0.2-1); Total Protein 6.4 gm/dl (6.4-8.2)
[2020-11-28] MEDS: FOLIC ACID 1 MG TAB PO SCH (08:09)
[2020-11-28] MEDS: GLYCOPYRROLATE 1 MG TAB PO SCH (08:09)
[2020-11-28] MEDS: METOPROLOL TARTRATE 100 MG TAB PO SCH (08:10)
[2020-11-28] MEDS: PANTOprazole 40 MG TAB PO SCH (08:10)
[2020-11-28] MEDS: ENOXAPARIN INJ 40 MG/0.4 ML SYR SQ SCH (08:10)
[2020-11-28] MEDS: CETIRIZINE HCL 10 MG TABLET PO SCH (08:10)
[2020-11-28] MEDS: FLUTICASONE PROPIONATE NA SPR 16 GM BTL SCH (08:10)
[2020-11-28] MEDS: THIAMINE HCL 100 MG TAB PO SCH (08:10)
--- NOTE | 2020-11-28 12:40 | Discharge Summary ---
Date of Service November 28, 2020 Admission HPI Per Admitting Provider Domingo Nguyen is a 50yo male with history fo HTN, HLP and GERD presenting with 7 days of illness. He reports 7 days ago developing nausea with some non-bloody/non-bilious emesis in the morning. He also reports muscle cramping initially involving his hands. His nausea persisted over the next several days and his cramping became more severe - also involving chest, abdomen and back. He states that the muscle cramps have become quite severe - he gets them in his legs with any prolonged standing. He also gets nausea with standing and positional changes. He reports body aches, dizziness and headache as well. He denies fever, chills, chest pain, palpitations, SOB, abdominal pain, diarrhea. He has a chronic cough productive for thick sputum which he is having worked up with allergy He had a routine office visit with his PCP 4 days ago and mentioned these complaints. Blood work was sent which was resulted today. Patient instructed to come to the ER for elevated liver studies and Cr. Patient uses Tylenol sparingly. Has history of tattoos obtained in reputable places. No history of blood transfusions. No known history of tick bites. 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 ER Course: Mg, NSS x 2L Principal Diagnosis VENKATESH, Dehydration, Elevated LFTs, mild pancreatitis, hyponatremia Discharge Exam Constitutional WD/WN, vitals as above Eyes PERRL, conjunctivae normal, anicteric sclerae ENMT external ear and nose normal, oropharynx normal Neck trachea midline, no thyromegaly Respiratory normal respiratory effort, lungs clear to auscultation Cardiovascular RRR, no murmur, no edema Chest (Breasts) Chest: normal inspection of chest Gastrointestinal (Abdomen) normal bowel sounds, soft, nontender, no hepatosplenomegaly Musculoskeletal Extremities: extremities normal to inspection; no cyanosis and no clubbing Skin no rashes, warm and dry Neurologic moves all extremities and awake; no focal motor deficits Psychiatric A+Ox3, euthymic affect Lymphatic no lymphedema Discharge Data Allergies Allergy/AdvReac Type Severity Reaction Status Date / Time erythromycin base Allergy Severe seizures Verified 02/08/20 14:25 citric acid [From Prepopik] Allergy Rash Verified 11/26/20 09:49 magnesium oxide Allergy Rash Verified 11/26/20 09:49 [From Prepopik] sodium picosulfate Allergy Rash Verified 11/26/20 09:49 [From Prepopik] Consultations 11/25/20 20:08 ED Decision to Admit Stat Ordered Studies 11/25/20 17:14 CT abd pelvis wo con Stat 11/26/20 09:42 US liver Routine 11/27/20 09:37 MR MRCP Routine 11/27/20 21:08 US venous doppler UE LT Urgent Chest X-Ray 11/25/20 16:47 XR chest 1V portable HISTORY: 50 years-old Male Chest Pain acute atypical chest pain COMPARISON: Chest radiographs 11/15/2016, chest CT 09/17/2017 TECHNIQUE: Portable AP view of the chest FINDINGS: Cardiomediastinal and hilar silhouettes are within normal limits. No pneumothorax, pleural effusion, airspace consolidation or overt pulmonary edema. Ill-defined 1.4 cm nodular opacity of the left lung base. Spondylitic spurring of the spine. IMPRESSION: 1. No acute process. 2. Ill-defined 1.4 cm nodular opacity of the left lung base is suggestive of probable summation density. A pulmonary nodule could appear similarly. ACT 112: Negative or not required by law. The above report was generated using voice recognition software. It may contain grammatical, syntax or spelling errors. Electronically signed by: Lázaro Torres M.D. 11/25/2020 5:08 PM Abdomen/Pelvis CT 11/25/20 17:[address] WITHOUT CONTRAST CT DOSE: 775.98 mGy.cm HISTORY: Acute kidney injury VENKATESH TECHNIQUE: Multiaxial CT images of the abdomen and pelvis were performed without contrast. A dose lowering technique was utilized adhering to the principles of ALARA. COMPARISON STUDY: Chest CT 09/17/2017 FINDINGS: The imaged inferior cardiac chambers are unremarkable. Calcified granuloma of the basal right lower lobe. No pneumatosis or pneumoperitoneum. Limited evaluation of the solid abdominal organs without the use of IV contrast. Unremarkable spleen with a few punctate calcifications. Unremarkable pancreas, adrenal glands and gallbladder. Hepatic steatosis with mild hepatomegaly. Unremarkable kidneys. No renal or ureteral calculi or hydronephrosis. Urinary bladder wall thickening with partial distention. There is no abdominal aortic aneurysm. No adenopathy. No bowel obstruction or bowel wall thickening. No ascites or mesenteric inflammation. High density material noted within the colon is also within a few loops of small bowel. Normal appendix. Unremarkable soft tissues. Avascular necrosis of the femoral heads. Degenerative changes of the pelvis and spine. IMPRESSION: 1. No urolith or obstructive uropathy. 2. No bowel obstruction or bowel wall thickening. Normal appendix. 3. Hepatic steatosis 4. Avascular necrosis of the femoral heads. ACT 112: Negative or not required by law. The above report was generated using voice recognition software. It may contain grammatical, syntax or spelling errors. Electronically signed by: Lázaro Torres M.D. 11/25/2020 6:27 PM Liver Ultrasound 11/26/20 09:42 US liver CLINICAL HISTORY: 50 years-old Male presenting with gb/liver and ducts. TECHNIQUE: Real-time grayscale ultrasound imaging of the upper abdomen was performed for a focused evaluation at the site of clinical concern. COMPARISON: None. Correlation is made with CT of the abdomen and pelvis performed yesterday. FINDINGS: Pancreas: Visualized portion of the pancreas shows no evidence of focal lesions. Liver is measuring 17 cm in size and shows diffuse increase in echogenicity and coarsening of echotexture of its parenchyma. Curvilinear hypoechoic area within liver parenchyma adjacent to the gallbladder fossa was not visualized on the prior CT, shows no evidence of blood flow and measured 0.9 x 1.2 x 1.0 cm in size. Gallbladder is fluid-filled without evidence of intraluminal calculi. There is focal area of increased echogenicity with posterior shadowing on nondependent portion of the gallbladder wall likely representing area of fat accumulation/adenomyomatosis. There is questionable focal thickening of the gallbladder wall adjusted to this region. Right kidney is measuring 11.5 cm in length and shows no evidence of hydronephrosis. IMPRESSION: 1. Hepatic steatosis. Questionable hypoechoic lesion within liver parenchyma, close to gallbladder fossa was not seen during prior CT might represent focally dilated biliary duct versus other etiology. Attention on follow-up imaging. 2. Possibly a adenomyomatosis within gallbladder. Questionable focal thickening of the gallbladder wall. Follow-up evaluation with contrast-enhanced CT of the abdomen on nonemergency basis is suggested. ACT 112: Positive. There are findings on this exam that require communication between the performing entity and the patient following Patient Test Result Information Act ([place] Act 112) guidelines. Electronically signed by: Mikala Basurto DO 11/26/2020 7:03 PM Cholangiopancreatography MRI 11/27/20 09:37 MR MRCP HISTORY: 50 years-old Male abnormal RUQ US acute renal failure. Acute generalized abdominal pain with elevated LFTs COMPARISON: CT abdomen and pelvis 11/25/2020 TECHNIQUE: MRCP was obtained according to institutional protocol without the use of IV contrast. 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 Clear lung bases. The spleen, pancreas, adrenal glands and kidneys are unremarkable. There is no abdominal aortic aneurysm. No adenopathy. Hepatic steatosis. No hepatic mass identified. The gallbladder is within normal limits. No cholelithiasis identified. No biliary ductal dilation or choledocholithiasis. Tiny T2 hyperintense cystic focus of the bladder fundus may represent adenomyomatosis. No pancreatic divisum. IMPRESSION: 1. Mildly motion degraded exam. 2. No cholelithiasis, biliary ductal dilation or choledocholithiasis. ACT 112: Negative or not required by law. The above report was generated using voice recognition software. It may contain grammatical, syntax or spelling errors. Electronically signed by: Lázaro Torres M.D. 11/27/2020 3:33 PM Extremity Venous Study 11/27/20 21:08 LEFT UPPER EXTREMITY VENOUS DOPPLER HISTORY: swelling r/o DVT COMPARISON STUDY: None. FINDINGS: The left internal jugular vein is patent. There is normal flow within the left subclavian vein. There is normal flow and compressibility within the left axillary, basilic, brachial, radial, and ulnar veins. There is occlusive superficial thrombus within the left cephalic vein from the antecubital fossa to the mid forearm. This measures approximately 10 cm in length. IMPRESSION: No DVT within the left upper extremity. Superficial thrombus within the left cephalic vein. ACT 112: Negative or not required by law. Electronically signed by: Darron Zamarripa M.D. 11/28/2020 7:23 AM Hospital Course (1) Acute kidney insufficiency: * Acute kidney injury * Likely due to dehydration secondary to vomiting and decreased oral intake, suspected pancreatitis and exacerbated by ingestion of ibuprofen and his routine HCTZ/micardis for BP * dc hydrochlorothiazide * Renal function improved to 1.2 * encouraged plenty of fluids (2) Elevated lipase: lipase 1200 range and now improving did have epigastric severe abd pain rpior to admission, N/V suspect secondary to EtOH use-admits to drinking 4 shots of liquor 4 days a week and used to drink that much on a daily basis until 2 months ago no gallstones, MRCP normal nan reg diet now advised cessation of EtOH, low fat diet f/u lipase in 3 days (3) Elevated LFTs: * Exact etiology unclear- suspect multifactorial (ETOH use. APAP use. Statin therapy. ?viral syndrome-CMV/EBV/acute hepatitis panel ordered and pending) ALso perhaps from fatty liver and mild rhabdomyolysis contributed * Initially, anaplasmosis was high in the differential,was treated for 3 days with IV doxy but then dcd. Anaplsmosis smear neg, and has normal WBC and platelets making Anaplasmosis less likely-doxy discontinued * f/u results of Babesia, CMV,EBV,Anaplasma PCR after discharge, Hep A also still pending * f/u LFs as outpt in 3 days with PCP (4) Hypomagnesemia: * Replaced and resolved (5) Hyponatremia: * Likely hypovolemic hyponatremia due to dehydration from and decreased oral intake compounded by his HCTZ. * Sodium now normal * dc HCTZ (6) Hyperhidrosis: Patient reports hyperhidrosis for which he takes Robinul continue Robinul 3mg po qAM and 2mg po qHS (7) Hypertension: Chronic. Well controlled -Continue Metoprolol 100mg po BID -ok to restart Olmesartan and dc HCTZ as above -Continue to monitor (8) Hyperlipidemia: Chronic -Hold Fenofibrate and Atorvastatin for now until LFTs improve (9) Avascular necrosis of hip: incidental finding on CT f/u outpt with Ortho (10) Abnormal chest xray: possible nodule vs summation artifact recommend repeat CXR in 2 weeks as outpt (11) GERD (gastroesophageal reflux disease): Chronic -Continue Protonix 40mg po daily ppx - Lovenox 40 Disposition: dc to home Total Time Total Time Spent Total Time Spent (In Minutes): 35 min Total Time Includes: Examination of the Patient, Discharge Planning and Medication Reconciliation Discharge Plan Discharge Items Patient Disposition: Home - Self-Care Reason For Visit: NAUSEA, VOMITING, ABNORMAL LFTS Discharge Diagnosis: Acute kidney injury, dehydration, Fatty liver, Mild pancreatitis, hyponatremia Condition on Discharge: Good Activity: As commented below Lifting: Gradually increase as tolerated Bathing: No limitations Exercise/Sports: Gradually increase as tolerated Non-emergency contact: Primary Care Provider Call non-emergency contact if: you have any medication questions and your symptoms worsen Follow-up/Referrals: Jesus Dyson, DO [Primary Care Provider] - (Please follow up within 1-2 weeks.) Diet: Low Fat Ambulatory Orders: Comprehensive Metabolic Panel (Routine) Timeframe: 3 Days Location: Determined by Patient Ordered By: Vonnie Shields Lipase (Routine) Timeframe: 3 Days Location: Determined by Patient Ordered By: Vonnie Shields Addtl Attending Provider Instructions: You were admitted with dehydration and acute kidney injury. You also had elevated liver and pancreas enzymes which may be from excessive alcohol use. Please abstain from all alcohol use at this time. Your HCTZ will be STOPPED. You should also HOLD your atorvastatin until your liver enzymes return to normal. Please have repeat blood work done in 3 days to see if liver and pancreas tests are continuing to return to normal. Incidentally, you were found to have an abnormality of your hip bones called "avascular necrosis." You should follow up with an orthopedic surgeon as an outpatient on this. You were also found to have a possible pulmonary nodule in your left lung on chest xray. Please have Dr. Dyson order you a repeat Chest X-ray in 1-2 weeks to see if this has resolved. Pending Studies at Discharge: Yes Stand-Alone Forms: My [facility] [employer], Smoking Cessation Medications and DC Order Prescriptions: Continued metoprolol tartrate 100 mg tablet 100 mg PO BID Qty: 180 RF: 1 olmesartan 40 mg tablet 40 mg PO DAILY Qty: 90 RF: 1 omeprazole 40 mg capsule,delayed release(DR/EC) 40 mg PO DAILY Qty: 90 RF: 1 glycopyrrolate 1 mg tablet 5 mg PO DAILY RF: 0 acetaminophen [Tylenol Extra Strength] 500 mg Tablet 500 mg PO Q6H PRN (Reason: Pain) RF: 0 Discontinued atorvastatin 20 mg tablet 20 mg PO DAILY Qty: 90 RF: 1 fenofibrate nanocrystallized 145 mg tablet 145 mg PO DAILY Qty: 90 RF: 1 hydrochlorothiazide 25 mg tablet 25 mg PO DAILY Qty: 90 RF: 1 Discharge Orders: Discharge Order (Routine); Ordered 11/28/20 Ordered By: Vonnie Garcia/Other Patient Handouts: Anatomy of the Male Urinary Tract Admission Data Admit Date/Time: 11/25/20 21:24 Attending Provider: Vonnie Shields Admit Provider: Destinee Canales Primary Care Provider: Jesus Dyson Other Providers: Destinee Canales Coding Level of Care Code D/C DAY MANAGEMENT >30 MINS Diagnoses Acute kidney insufficiency N28.9 Elevated lipase R74.8 Elevated LFTs R94.5 Hypomagnesemia E83.42 Hyponatremia E87.1 Hyperhidrosis R61 Hypertension I10 Hypertension type: primary hypertension Hyperlipidemia E78.5 Hyperlipidemia type: unspecified Avascular necrosis of hip M87.059 Abnormal chest xray R93.89 GERD (gastroesophageal reflux disease) K21.9 Esophagitis presence: esophagitis presence not specified
[2020-11-28 16:21] LABS: CMV IgG Antibody <0.60 U/mL; CMV IgM Antibody <30.00 AU/mL
[2020-11-28 17:31] LABS: Epstein Barr Virus Early Ag Ab <9.00 U/mL
[2020-12-01 16:17] LABS: Babesia microti IgG <1:64 titer (<1:64); Hepatitis A Antibody IgM NON-REACTIVE (NON-REACTIVE); Hepatitis B Core Antibody IgM NON-REACTIVE (NON-REACTIVE)
--- NOTE | 2020-12-09 10:10 | Coding Query ---
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 Please assist us with the question(s) below: Coding Question(s): The diagnosis below was documented in the Progress Notes on 11/26 and 11/27, then subsequently fell off all further documentation on the Discharge Summary. Please indicate if it is still a possible diagnosis or ruled out. Physician's Response(s): COMMUNITY-ACQUIRED PNEUMONIA - (11/26 PN documents, "he is currently on doxycycline. This would provide adequate coverage for community-acquired pneumonia", and 11/27 PN documents, "Remains empirically on Doxycycline for ? anaplasmosis +/- CAP". ( x ) Diagnosed and POA ( ) Diagnosed and not POA ( ) Ruled out ( ) Other (please specify) MTDD
--- NOTE | 2020-12-09 10:14 | Coding Query ---
CODING QUERY To promote full compliance with coding requirements relating to patient care, provider participation is requested in all cases of death surveys coder uncertainty. Please assist us with the question(s) below: Coding Question(s): Physician's Response(s): The Discharge Summary documents mild Pancreatitis and documents under Elevated Lipase, "suspect secondary to EtOH use". Please specify below, in your clinical opinion, regarding mild pancreatitis. ( x ) Mild Acute Pancreatitis ( x) likely alcohol induced ( ) unspecified cause ( ) other: Please Specify ( ) Mild Chronic Pancreatitis ( ) likely alcohol induced ( ) unspecified cause ( ) other: Please Specify ( ) Other Pancreatitis: Please Specify Thank you Joyce Sotelo Principal Diagnosis: "that condition established after study, to be chiefly responsible for occasioning the admission of the patient to the hospital for care." Co-Existing Principal Diagnosis: "when two or more diagnoses equally meet the criteria for principal diagnosis as determined by the circumstances of admission, diagnostic work up, and/or therapy provided, and the Alphabetic Index, Tabular List, or another coding guideline does not provide sequencing direction, any one of the diagnoses may be sequenced first." "When the physician has documented what appears to be a current diagnosis in the body of the record, but has not included the diagnosis in the final diagnostic statement, the physician should be asked whether the diagnosis should be added." (Source [facility] 2 QTR90. p3-4) LIGIA
== END 2020-11-28 13:47 | disposition home or self-care (01) | DRG 682 ==
LOC: ED 16:22 → 3N 21:24 → SUATTDRO 21:24 → 3N 22:23

== ENCOUNTER 2023-08-16 16:40 | Inpatient (IN) ==
--- NOTE | 2023-08-16 16:53 | ED Triage Note ---
Date of Service August 16, 2023 Provider in Triage Author: Will Ho A History of Present Illness This patient was briefly evaluated while in triage. An abbreviated physical exam was performed. This patient is a 53-year-old Male who presents to the ED for evaluation of elevated blood pressure. Has thickened gallbladder wall and went to surgeon for preop testing. Went to Dr José Miguel Dyson's office, saw the nurse, and nurse sent to ER. No chest pain or SOB. Physical Exam Limited Triage Exam: VITALS: Vitals are noted on the nurse's note and reviewed by myself. Vital signs with bp 203/143. GENERAL: Well-developed, well-nourished, white male, who is in no acute distress and resting comfortably. Patient is cooperative with the examination. HEART: Regular rate and rhythm without murmurs gallops or rubs. LUNGS: Clear to auscultation bilaterally without wheezes, rales or rhonchi. No retractions or accessory muscle use. NEURO: Patient was alert and oriented to person place and time. CN II through XII grossly intact. Initial orders for labs and / or imaging were placed and patient was placed in the waiting area until a bed is available. Please see further documentation for the full ED course. MDM / Impression Impression Impression: Acute UTI (urinary tract infection), Hypertension, Elevated LFTs, Rigors, Vomiting
--- NOTE | 2023-08-16 17:37 | XRay Report ---
XR chest 1V not portable HISTORY: Chest pain, nonspecific COMPARISON: Chest 12/07/2020. FINDINGS: The lungs are clear. Cardiac silhouette is normal in size. No pleural effusions. No pneumot horax. IMPRESSION: No acute process. ACT 112: Negative or not required by law. Electronically signed by: Darron Zamarripa M.D. 08/16/2023 5:36 PM
[2023-08-16 18:17] LABS: Albumin Globulin Ratio 1.7 (0.9-2); Albumin Level 5.4 gm/dl (3.4-5.0); BUN Creatinine Ratio 8.1 (10-20); Bilirubin,Total 2.2 mg/dl (0.2-1.0); Creatinine Clr Calc Pharmacy 69.6 ml/min; Est GFR (Non-African American) 58.7 ml/min; Globulin 3.2 gm/dl (2.5-4.0); Total Protein 8.6 gm/dl (6.0-8.3)
[2023-08-16 18:23] LABS: Troponin I High Sensitivity 17.6 pg/ml (0-20)
[2023-08-16 18:34] LABS: Basophils % (auto) 0.8 %; Eosinophils # (auto) 0.13 K/uL (0.00-0.50); Hematocrit (blood only) 49.4 % (42.0-52.0); Hemoglobin 18.4 g/dl (14.0-18.0); Immature Granulocytes # (auto) 0.06 K/uL (0.01-0.20); Immature Granulocytes % (auto) 0.5 %; Lymphocytes # (auto) 0.82 K/uL (1.20-3.40); Lymphocytes % (auto) 6.2 %; Mean Corpuscular Hemoglobin 35.2 pg (25.0-34.0); Mean Corpuscular Hgb Conc 37.2 g/dL (32.0-36.0); Mean Corpuscular Volume 94.6 fL (80.0-100.0); Mean Platelet Volume 10.1 fL (9.4-12.4); Monocytes % (auto) 7.6 %; Neutrophils % (auto) 83.9 %; Platelet Count 327 K/uL (130-400); RDW Coefficient of Variation 11.9 % (11.5-14.5); RDW Standard Deviation 41.1 fL (36.4-46.3); Red Blood Count 5.22 M/uL (4.70-6.10); White Blood Count 13.21 K/ul (4.8-10.8)
[2023-08-16] MEDS: OPTIRAY 320 100ml IV ONE (21:03)
[2023-08-16] MEDS: KETOROLAC TROMETHAMINE 15 MG/ML VIAL IV ONE (21:42)
[2023-08-16] MEDS: ONDANSETRON INJ 2 MG/ML 2 ML VIAL IV STA (21:42)
[2023-08-16] MEDS: SODIUM CHLORIDE 0.9% 500 ML IV ONE (21:43)
[2023-08-16] MEDS: cefOXitin 2,000 MG/60 ML BAG IV STA (21:48)
[2023-08-16] MEDS: SODIUM CHLORIDE 0.9% 1,000 ML IV SCH (22:11)
[2023-08-16 22:24] LABS: Appearance Urine Clear (Clear); Bacteria Urine Automated Negative (Negative); Blood Urine Negative (Negative); Color Urine Orange; Epithelial Cell Urine Auto >30 /lpf (0-5); Glucose Urine UA Negative (Negative); Ketones Urine Trace (Negative); Leukocyte Esterase Urine Trace (Negative); Nitrite Urine Positive (Negative); Protein Urine 3+ (Negative); RBC Urine Automated 0-4 /hpf (0-4); Specific Gravity Urine > 1.045 (1.000-1.030); Urobilinogen Urine Negative (Negative); pH Urine 5.5 (4.5-7.5)
[2023-08-16 22:37] LABS: Bilirubin Urine 2+ (Negative)
--- NOTE | 2023-08-16 22:37 | CT Scan Report ---
Exam(s): CT ABDOMEN + PELVIS With Contrast IV Amt: OPTIRAY 320 92ML EXAM: CT Abdomen and Pelvis With Intravenous Contrast CLINICAL HISTORY: Reason for exam: RUQ abd pain, elevated lfts, fevers, chills. TECHNIQUE: Axial computed tomography images of the abdomen and pelvis with intravenous contrast. CTDI is 26.29 mGy and DLP is 1237.92 mGy-cm. Automated exposure control was utilized for the study. A dose lowering technique was utilized adhering to the principles of ALARA. CONTRAST: Patient received OPTIRAY 320 92ML of IV contrast COMPARISON: CT abdomen/pelvis on 11/25/2020 FINDINGS: Lung bases: Small calcified granuloma at the right lung base. No consolidation. ABDOMEN: Liver: Hepatic steatosis. Gallbladder and bile ducts: Unremarkable. No calcified stones. No ductal dilation. Pancreas: Unremarkable. No mass. No ductal dilation. Spleen: Unremarkable. No splenomegaly. Adrenals: Unremarkable. No mass. Kidneys and ureters: Small left renal cyst. No hydronephrosis or obstructing stone. Stomach and bowel: Evaluation of the stomach is limited by underdistention. No mucosal thickening. No bowel obstruction or inflammation. PELVIS: Appendix: Normal appendix. Bladder: Bladder wall thickening with surrounding fat stranding, concerning for cystitis. Please correlate with urinalysis. Reproductive: Unremarkable as visualized. ABDOMEN and PELVIS: Intraperitoneal space: Unremarkable. No free air. No significant fluid collection. Bones/joints: Degenerative changes of the spine. 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 No acute fracture. No dislocation. Soft tissues: Unremarkable. Vasculature: Minimal atherosclerotic changes of the vasculature. No aortic aneurysm or dissection. Lymph nodes: Unremarkable. No enlarged lymph nodes. IMPRESSION: Bladder wall thickening with surrounding fat stranding, concerning for cystitis. Please correlate with urinalysis. Electronically signed by: Valerie Adan M.D. 08/16/23 22:36 PM
[2023-08-17] MEDS: hydrALAZINE HCL 20 MG/ML VIAL IV ONE (00:38)
[2023-08-17] MEDS: oxyCODONE HCL IR 5 MG TAB (IMMEDIATE RELEASE) PO STA (00:38)
--- NOTE | 2023-08-17 00:52 | Emergency Department Note ---
Impression & Plan Acute UTI (urinary tract infection), Hypertension, Elevated LFTs, Rigors, Vomiting ED Provider Note NAME: JEANNETTE MEJIA Jr AGE: 53 SEX: Male INFORMANT: Patient ED PROVIDER(S): Marshall Martinez MD CHIEF COMPLAINT: Hypertension PLAN: Disposition: Admit Outpatient prescription management: none Referral: None MEDICAL DECISION MAKING: Patient presented because of hypertension and was shakiness. He was supposed to have his surgical evaluation for cholecystectomy. Patient had nausea and vomiting recently as well. He was unable to tolerate his oral BP medications today. A workup was initiated in the protocol status as there was high volume and high acuity in the emergency department. Patient was found to have a slight leukocytosis. Chemistry panel was unremarkable. Urinalysis was concerning for infection. CT imaging was performed. Patient was noted to have cystitis. No other acute pathology noted. The patient was empirically given IV Mefoxin. Did review this with the pharmacist. Should have adequate gallbladder as well as urinary coverage. Patient did receive IV Toradol and Zofran. Noted improvement of symptoms. Patient was complaining of his lower back hurting. Patient notes a history of lumbar back issues and has been lying in the bed and sitting in the waiting room for extended period. Patient was given 5 mg of hydralazine for blood pressure control as he vomited his medications earlier today he was given a dose of oxycodone as he has had this in the past successfully. [facility]. Case discussed and diagnostics were reviewed with Dr. Gonzalez. 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 Vital Signs: reviewed and remarkable for hypertension Additional History obtained from: none Chronic Medical/Social Conditions affecting care: GERD chronic low back pain Prior/ Outside/ External records reviewed: Outpatient ultrasound imaging reviewed. No evidence of clear cholecystitis Differential Diagnosis: Infection, dehydration, metabolic abnormality, hypo/hyperglycemia, electrolyte disturbance, anemia, hypoxia, cardiac sources, intracerebral event, toxicologic, neurologic, as well as other pathologies. Diagnostics, independently interpreted by me: ECG: Twelve-lead ECG rhythm normal sinus rhythm 64 bpm. Lateral T wave inversion. When compared to 27 January 2021 there is no change Cardiac Monitoring: Cardiac monitoring ordered by me: The patient was placed on continuous cardiac monitoring and observed. It revealed a normal sinus rhythm at 64 beats per minute without ectopy or evidence of dysrhythmia. Medical decision rules: none Imaging studies: I refer you to the EMR for further details. HPI: 53 year old Male arrives for evaluation of hypertension and shakiness. Patient was at his preoperative surgical evaluation for gallbladder issues. Patient states he was feeling very shaky. Has been having nausea and vomiting. He did not tolerate his blood pressure medications today. Patient was directed to the ER for further evaluation and management. Patient rates his pain as a 7 out of 10. Has been having upper abdominal pain. Patient also notes exacerbation of his chronic low back pain. No aggravating or relieving factors noted. Patient also noted some dark urine today pt denies LOC, headache, fevers, visual changes, neck pain, chest pain, breathing difficulties, melena, hematochezia, , numbness, weakness, lymphadenopathy, rash, or other complaints. PAST MEDICAL HISTORY: See Below, GERD, chronic low back PAST SURGICAL HISTORY: See Below, SOCIAL HISTORY: See Below, non-smoker HOME MEDICATIONS: See Below ALLERGIES: See Below VITALS: See Below PHYSICAL EXAMINATION: GENERAL: Awake, alert, uncomfortable-appearing, in no distress HENT: Normocephalic, atraumatic. Oropharynx unremarkable. EYES: Normal conjunctiva. Sclera non-icteric. NECK: Inspection normal. Non-tender. Supple. No nuchal rigidity. FROM. No masses. RESPIRATORY: Clear to auscultation. No wheezes. No rales. Normal respiratory effort. CARDIAC: Normal rate. Normal rhythm. No murmurs. No rubs. Extremities warm and well perfused. Pulses equal. No JVD. GI: Soft, non-distended. Epigastric and right upper quad tenderness to palpation. No rebound or guarding. No masses. RECTAL: Deferred. MUSCULOSKELETAL: Atraumatic. Chest examination reveals no tenderness. The back is symmetrical on inspection without obvious abnormality. There is no CVA tenderness to palpation. No joint edema. LOWER EXTREMITIES: Calves are equal size bilaterally and non-tender. No edema. No discoloration. NEURO: Normal sensorium. No sensory or motor deficits noted. SKIN: No rash or jaundice noted. PROCEDURES: none CRITICAL CARE: none OBSERVATION NOTE: none Past Med/Surg History Medical History (Updated 08/17/23 @ 00:52 by Marshall Martinez MD) Hx of renal failure History of. Secondary to medication reactions - kidney function has since improved to WNL GERD (gastroesophageal reflux disease) Avascular necrosis of hip Constipation Severe obstructive sleep apnea No device- "it did not help" per patient Chronic back pain Hyperlipidemia Hypertension Surgical History History of hip surgery Hx of tonsillectomy History of hand surgery right History of laminectomy lumbar Family History Mother Dementia Grandmother (Maternal) Dementia Aunt Dementia Denies family history of Colon cancer Ovarian cancer Prostate cancer Myocardial infarction Breast cancer Social History (Updated 11/24/21 @ 15:52 by Susu iVllar LPN) Smoking Status: Never smoker Second Hand Exposure: No; Do You Dip or Chew Tobacco: No; Hx Alcohol Use: Yes Alcohol type: hard liquor Alcohol Intake Frequency: 4 or More x per/Week Alcohol Intake Frequency Comment: 15-25 drinks/week Hx Substance Use: Yes Last Used Substance: Days (ago) Preferred Language: Indonesian Communication Ability: Effective Visual Impairment: No Limitations Hearing Ability: Normal Combine Driver Required: No Beliefs That Will Affect Care: None marital status: Current Living Situation: Spouse current occupational status: retired Feels Safe at Home: Yes Childhood Exposure to Second-Hand Smoke: Yes Diet: regular Diet Comment: no diet plans caffeine: Yes during the past year weight has: decreased > 10 lbs Dental Care, Regularly: Yes Physical Activity Frequency: Does not Exercise Seatbelt Use: always Sunscreen Use: No Do you think of yourself as: straight/heterosexual Assistive Devices: Glasses Allergies Allergies Allergy/AdvReac Type Severity Reaction Status Date / Time magnesium oxide Allergy Intermediate Rash Verified 08/16/23 22:05 [From Prepopik] sodium picosulfate Allergy Intermediate Rash Verified 08/16/23 22:05 [From Prepopik] erythromycin base AdvReac Severe seizures Verified 08/16/23 22:05 Home Meds Home Medications Medication Instructions Recorded Confirmed diphenhydramine HCl 25 mg capsule 25 mg PO DAILY 08/16/23 08/16/23 (Benadryl) fluoxetine 10 mg capsule 10 mg PO DAILY 08/16/23 08/16/23 losartan 25 mg tablet 25 mg PO DAILY 08/16/23 08/16/23 rosuvastatin 20 mg tablet 20 mg PO DAILY 08/16/23 08/16/23 metoprolol tartrate 100 mg tablet 100 mg PO DAILY 08/17/23 08/17/23 Previous Rx's Medication Instructions Recorded omeprazole 40 mg capsule,delayed 40 mg PO DAILY #90 caps 10/26/21 release Results & Data (ED) Vital Signs Vital Signs - 24 hr 08/16/23 16:52 08/16/23 20:22 08/16/23 21:48 Temperature 37.2 C Temperature Source Oral Pulse Rate 70 Pulse Rate [Finger] 67 Pulse Rate from SpO2 Sensor Respiratory Rate 19 18 Respiratory Effort / Characteristics Respiratory Depth Respiratory Pattern Blood Pressure 203/143 H Blood Pressure [Right Arm] 201/116 H Blood Pressure Mean 163 Blood Pressure Mean [Right Arm] 144 Blood Pressure Position [Right Arm] Pulse Oximetry 99 97 95 Oxygen Delivery Method Room Air Room Air Room Air Sepsis Recent Fever Within 48 Hours No Sepsis New/Unexplained Change in Mental Status N/A Sepsis Action Taken by Nursing No Action Required 08/16/23 21:48 08/16/23 21:49 08/16/23 23:00 Temperature Temperature Source Pulse Rate 66 65 Pulse Rate [Finger] 69 Pulse Rate from SpO2 Sensor 64 Respiratory Rate 18 15 Respiratory Effort / Characteristics Non-Labored Spontaneous Respiratory Depth Normal Respiratory Pattern Regular Blood Pressure 170/106 H Blood Pressure [Right Arm] 190/114 H Blood Pressure Mean 127 Blood Pressure Mean [Right Arm] 139 Blood Pressure Position [Right Arm] Lying Pulse Oximetry 96 98 Oxygen Delivery Method Room Air Room Air Sepsis Recent Fever Within 48 Hours Sepsis New/Unexplained Change in Mental Status Sepsis Action Taken by Nursing 08/17/23 00:00 08/17/23 00:37 08/17/23 01:00 Temperature Temperature Source Pulse Rate 64 63 66 Pulse Rate [Finger] Pulse Rate from SpO2 Sensor 63 67 65 Respiratory Rate 17 19 18 Respiratory Effort / Characteristics Respiratory Depth Respiratory Pattern Blood Pressure 189/117 H 180/120 H 180/106 H Blood Pressure [Right Arm] Blood Pressure Mean 141 140 130 Blood Pressure Mean [Right Arm] Blood Pressure Position [Right Arm] Pulse Oximetry 98 96 97 Oxygen Delivery Method Room Air Room Air Sepsis Recent Fever Within 48 Hours Sepsis New/Unexplained Change in Mental Status Sepsis Action Taken by Nursing 08/17/23 01:20 Temperature Temperature Source Pulse Rate 64 Pulse Rate [Finger] Pulse Rate from SpO2 Sensor 65 Respiratory Rate 16 Respiratory Effort / Characteristics Respiratory Depth Respiratory Pattern Blood Pressure 165/98 H Blood Pressure [Right Arm] Blood Pressure Mean 120 Blood Pressure Mean [Right Arm] Blood Pressure Position [Right Arm] Pulse Oximetry 97 Oxygen Delivery Method Room Air Sepsis Recent Fever Within 48 Hours Sepsis New/Unexplained Change in Mental Status Sepsis Action Taken by Nursing Laboratory Data 08/16/23 17:40 08/16/23 17:40 Lab Results 08/16/23 08/16/23 Range/Units 17:40 21:51 WBC 13.21 H (4.8-10.8) K/ul RBC 5.22 (4.70-6.10) M/uL Hgb 18.4 H (14.0-18.0) g/dl Hct 49.4 (42.0-52.0) % MCV 94.6 (80.0-100.0) fL MCH 35.2 H (25.0-34.0) pg MCHC 37.2 H (32.0-36.0) g/dL RDW Std Deviation 41.1 (36.4-46.3) fL RDW Coeff of Mona 11.9 (11.5-14.5) % Plt Count 327 (130-400) K/uL MPV 10.1 (9.4-12.4) fL Immature Gran % (Auto) 0.5 % Neut % (Auto) 83.9 % Lymph % (Auto) 6.2 % [place] % (Auto) 7.6 % Eos % (Auto) 1.0 % Baso % (Auto) 0.8 % Neut # (Auto) 11.10 H (1.40-6.50) K/uL Lymph # (Auto) 0.82 L (1.20-3.40) K/uL [place] # (Auto) 1.00 H (0.11-0.59) K/uL Eos # (Auto) 0.13 (0.00-0.50) K/uL Baso # (Auto) 0.10 (0.00-0.20) K/uL Immature Gran # (Auto) 0.06 (0.01-0.20) K/uL Sodium 135 L (136-145) mmol/L Potassium 4.0 (3.5-5.1) mmol/L Chloride 95 L (98-107) mmol/L Carbon Dioxide 24 (21-32) mmol/L Anion Gap 16 H (3-11) BUN 11 (6-23) mg/dl Creatinine 1.35 (0.6-1.4) mg/dl Est Cr Clr Drug Dosing 69.6 ml/min Est GFR ( Amer) 68.0 ml/min Est GFR (Non-Af Amer) 58.7 ml/min BUN/Creatinine Ratio 8.1 L (10-20) Glucose 141 H (70-99(Fasting)) mg/dl Calcium 11.0 H (8.6-10.3) mg/dl Total Bilirubin 2.2 H (0.2-1.0) mg/dl AST 57 H (13-39) U/L ALT 78 H (7-52) U/L Alkaline Phosphatase 87 (34-104) U/L Troponin I High Sens 17.6 (0-20) pg/ml Total Protein 8.6 H (6.0-8.3) gm/dl Albumin 5.4 H (3.4-5.0) gm/dl Globulin 3.2 (2.5-4.0) gm/dl Albumin/Globulin Ratio 1.7 (0.9-2) Lipase 29 (11-82) U/L Urine Color [place] Urine Appearance Clear (Clear) Urine pH 5.5 (4.5-7.5) Ur Specific [place] > 1.045 H (1.000-1.030) Urine Protein 3+ H (Negative) Urine Glucose (UA) Negative (Negative) Urine Ketones Trace H (Negative) Urine Blood Negative (Negative) Urine Nitrite Positive A (Negative) Urine Bilirubin 2+ H (Negative) Urine Urobilinogen Negative (Negative) Ur Leukocyte Esterase Trace H (Negative) Urine WBC (Auto) 10-30 H (0-5) /hpf Urine RBC (Auto) 0-4 (0-4) /hpf U Hyaline Cast (Auto) 10-30 H (0-5) /lpf U Epithel Cells (Auto) >30 H (0-5) /lpf Urine Bacteria (Auto) Negative (Negative) Administered Medications Sodium Chloride (Nss) 1,000 mls @ 125 mls/hr IV .Q8H TORRI Stop: 09/15/23 20:59 Last Admin: 08/16/23 22:11 Dose: 125 mls/hr Documented By: ALYX Discontinued Medications Hydralazine HCl (Hydralazine Hcl 20 Mg/Ml Vial) 5 mg IV NOW ONE Stop: 08/17/23 00:33 Last Admin: 08/17/23 00:38 Dose: 5 mg Documented By: ANGELITO Sodium Chloride (Nss) 500 mls @ 999 mls/hr IV .Q31M ONE Stop: 08/16/23 21:17 Last Infusion: 08/16/23 22:28 Dose: Infused Documented By: Admin: 08/16/23 21:43 Dose: 999 mls/hr Documented By: ALYX Cefoxitin Sodium (Mefoxin) 2,000 mg in 60 mls @ 100 mls/hr IV NOW STA Stop: 08/16/23 21:26 Last Infusion: 08/16/23 22:28 Dose: Infused Documented By: Admin: 08/16/23 21:48 Dose: 100 mls/hr Documented By: ALYX Ioversol (Optiray 320 100ml) 92 ml IV ONCE ONE Stop: 08/16/23 21:04 Last Admin: 08/16/23 21:03 Dose: 92 ml Documented By: CARLOS Ketorolac Tromethamine (Ketorolac Tromethamine 15 Mg/Ml Vial) 10 mg IV NOW ONE Stop: 08/16/23 20:48 Last Admin: 08/16/23 21:42 Dose: 10 mg Documented By: ALYX Ondansetron HCl (Ondansetron Inj 2 Mg/Ml 2 Ml Vial) 4 mg IV NOW STA Stop: 08/16/23 20:48 Last Admin: 08/16/23 21:42 Dose: 4 mg Documented By: ALYX Oxycodone HCl (Oxycodone Hcl Ir 5 Mg Tab (Immediate Release)) 5 mg PO NOW STA Stop: 08/17/23 00:31 Last Admin: 08/17/23 00:38 Dose: 5 mg Documented By: ANGELITO Imaging Data Radiologist's Impression: Chest X-Ray 08/16/23 16:54 XR chest 1V not portable HISTORY: Chest pain, nonspecific COMPARISON: Chest 12/07/2020. FINDINGS: The lungs are clear. Cardiac silhouette is normal in size. No pleural effusions. No pneumothorax. IMPRESSION: No acute process. ACT 112: Negative or not required by law. Electronically signed by: Darron Zamarripa M.D. 08/16/2023 5:36 PM Abdomen/Pelvis CT 08/16/23 20:51 Exam(s): CT ABDOMEN + PELVIS With Contrast IV Amt: OPTIRAY 320 92ML EXAM: CT Abdomen and Pelvis With Intravenous Contrast CLINICAL HISTORY: Reason for exam: RUQ abd pain, elevated lfts, fevers, chills. TECHNIQUE: Axial computed tomography images of the abdomen and pelvis with intravenous contrast. CTDI is 26.29 mGy and DLP is 1237.92 mGy-cm. Automated exposure control was utilized for the study. A dose lowering technique was utilized adhering to the principles of ALARA. CONTRAST: Patient received OPTIRAY 320 92ML of IV contrast COMPARISON: CT abdomen/pelvis on 11/25/2020 FINDINGS: Lung bases: Small calcified granuloma at the right lung base. No consolidation. ABDOMEN: Liver: Hepatic steatosis. Gallbladder and bile ducts: Unremarkable. No calcified stones. No ductal dilation. Pancreas: Unremarkable. No mass. No ductal dilation. Spleen: Unremarkable. No splenomegaly. Adrenals: Unremarkable. No mass. Kidneys and ureters: Small left renal cyst. No hydronephrosis or obstructing stone. Stomach and bowel: Evaluation of the stomach is limited by underdistention. No mucosal thickening. No bowel obstruction or inflammation. PELVIS: Appendix: Normal appendix. Bladder: Bladder wall thickening with surrounding fat stranding, concerning for cystitis. Please correlate with urinalysis. Reproductive: Unremarkable as visualized. ABDOMEN and PELVIS: Intraperitoneal space: Unremarkable. No free air. No significant fluid collection. Bones/joints: Degenerative changes of the spine. 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 No acute fracture. No dislocation. Soft tissues: Unremarkable. Vasculature: Minimal atherosclerotic changes of the vasculature. No aortic aneurysm or dissection. Lymph nodes: Unremarkable. No enlarged lymph nodes. IMPRESSION: Bladder wall thickening with surrounding fat stranding, concerning for cystitis. Please correlate with urinalysis. Electronically signed by: Valerie Adan M.D. 08/16/23 22:36 PM Discharge Plan Visit Data Chief Complaint: Hypertension Stated Complaint: WEAK, NAUSEA, VOMITING, HIGH BP, GAL BLADDER ED Provider: Marshall Martinez Discharge Problem: Acute UTI (urinary tract infection), Hypertension, Elevated LFTs, Rigors, Vomiting Forms Stand Alone Forms: My [facility] Prescriptions Prescriptions: No Action omeprazole 40 mg capsule,delayed release(DR/EC) 40 mg PO DAILY Qty: 90 3RF diphenhydramine HCl [Benadryl] 25 mg Capsule 25 mg PO DAILY losartan 25 mg tablet 25 mg PO DAILY fluoxetine 10 mg capsule 10 mg PO DAILY rosuvastatin 20 mg tablet 20 mg PO DAILY metoprolol tartrate 100 mg Tablet 100 mg PO DAILY Referrals Referrals: Mehnaz Stuart PAJennC [Primary Care Provider] -
--- NOTE | 2023-08-17 03:21 | History & Physical Report ---
Date of Service August 17, 2023 Assessment & Plan (1) Elevated LFTs: Plan: 53-year-old male with past medical significant for hypertension, hyperlipidemia, depression, GERD . VALERY presents nausea vomiting and abdominal discomfort. Was not able to take his blood pressure medications because of nausea/vomitings and blood pressure running high. He was also having chills rigors sweating and shaky. Denies any chest pain. Currently no shortness of breath. States he has chronic cough and he had bronchoscopy in the past and was found to have some infection and supposedly repeat bronchoscopy but was not done. States has asthma but does not use inhalers. Denies any headache. No dizziness. No blurred vision. Normal bowel and bladder movements. Recently had a gallbladder ultrasound which showed adenomyomatosis and supposed to see surgery. Elevated lft n/v ruq abdominal pain plan for mrcp iv Zosyn iv Dilaudid prn, npo, iv fluids antiemetics prn follow repeat labs consult GI and Surgery HTN urgency not able to po meds placed on iv Lopressor. restart po Lopressor as soon as possible. losartan if able to take po. iv hydralazine prn follow repeat troponin and echo Alcoholism patient he says drinks 4 beers every 2-3 days patient doesn't think he will go through withdrawal. says he can go without drinking for few days will do iv thiamine and iv folic acid iv ativan prn close monitor. VALERY says not using cpap says he is sleeping fine will monitor Hyperlipidemia on Crestor GERD ppi Depression on fluoxetine DVt px scds Disposition med/tele Full code. History of Present Illness Chief Complaint: Nausea vomiting, abdominal discomfort, elevated LFTs, hypertensive urgency Primary Care Provider: Mehnaz Stuart PA-C 53-year-old male with past medical history significant for hypertension, hyperlipidemia, depression, GERD , VALERY presents nausea vomiting and abdominal discomfort. Was not able to take his blood pressure medications because of nausea/vomitings and blood pressure running high. He was also having chills rigors sweating and shaky. Denies any chest pain. Currently no shortness of breath. States he has chronic cough and he had bronchoscopy in the past and was found to have some infection and supposedly repeat bronchoscopy but was not done. States has asthma but does not use inhalers. Denies any headache. No dizziness. No blurred vision. Normal bowel and bladder movements. Recently had a gallbladder ultrasound which showed adenomyomatosis and supposed to see surgery. Past medical history. As mentioned above Past surgical history. Back surgery. Left hip surgery. Right hand surgery Social history. Denies any smoking. States drinks 4 beers every 2 to 3 days. As per [facility] Marijuana card Family history no family history on file Allergies Allergy/AdvReac Type Severity Reaction Status Date / Time magnesium oxide Allergy Intermediate Rash Verified 08/16/23 22:05 [From Prepopik] sodium picosulfate Allergy Intermediate Rash Verified 08/16/23 22:05 [From Prepopik] erythromycin base AdvReac Severe seizures Verified 08/16/23 22:05 Home Medications Medication Instructions Recorded Confirmed Type omeprazole 40 mg capsule,delayed 40 mg PO DAILY #90 caps 10/26/21 08/16/23 Rx release diphenhydramine HCl 25 mg capsule 25 mg PO DAILY 08/16/23 08/16/23 History (Benadryl) fluoxetine 10 mg capsule 10 mg PO DAILY 08/16/23 08/16/23 History losartan 25 mg tablet 25 mg PO DAILY 08/16/23 08/16/23 History rosuvastatin 20 mg tablet 20 mg PO DAILY 08/16/23 08/16/23 History metoprolol tartrate 100 mg tablet 100 mg PO BID 08/17/23 08/17/23 History Past Med/Surg History Medical History Hx of renal failure History of. Secondary to medication reactions - kidney function has since improved to WNL GERD (gastroesophageal reflux disease) Avascular necrosis of hip Constipation Severe obstructive sleep apnea No device- "it did not help" per patient Chronic back pain Hyperlipidemia Hypertension Surgical History History of hip surgery Hx of tonsillectomy History of hand surgery right History of laminectomy lumbar Family History Mother Dementia Grandmother (Maternal) Dementia Aunt Dementia Denies family history of Colon cancer Ovarian cancer Prostate cancer Myocardial infarction Breast cancer Social History Smoking Status: Never smoker Second Hand Exposure: No; Do You Dip or Chew Tobacco: No; Hx Alcohol Use: Yes Alcohol type: beer Alcohol Intake Frequency: 4 or More x per/Week Alcohol Intake Frequency Comment: 15-25 drinks/week Hx Substance Use: No Preferred Language: Mongolian Communication Ability: Effective Visual Impairment: No Limitations Hearing Ability: Normal Speaker Mounter Required: No Beliefs That Will Affect Care: None marital status: Current Living Situation: Spouse current occupational status: retired Feels Safe at Home: Yes Safety Concerns: Feels Safe At This Time Childhood Exposure to Second-Hand Smoke: Yes Diet: regular Diet Comment: no diet plans caffeine: Yes during the past year weight has: decreased > 10 lbs Dental Care, Regularly: Yes Physical Activity Frequency: Does not Exercise Seatbelt Use: always Sunscreen Use: No Do you think of yourself as: straight/heterosexual Assistive Devices: Cane Review of Systems Review of Systems: All systems reviewed & are unremarkable except as noted in HPI & below Physical Exam Physical Exam: General- Not in distress Head- atraumatic Eyes- PERRL. ENT- oropharynx clear Neck- supple, no JVD. Lungs- clear to auscultation no wheezing or crackles Heart- regular rhythm; no murmur, no gallop. Abdomen- normal bowel sounds, soft, mild ruq tenderness no distension Extremities- no pretibial edema, no erythema . Neuro- alert, oriented PERRL, no facial palsy; no dysarthria; Results & Data Results & Data Vital Signs (Past 12 Hours) Vital Signs Temp Pulse Pulse Resp BP BP Pulse Ox 08/17/23 01:20 64 16 165/98 H 97 08/17/23 01:00 66 18 180/106 H 97 08/17/23 00:37 63 19 180/120 H 96 08/17/23 00:00 64 17 189/117 H 98 08/16/23 23:00 65 15 170/106 H 98 08/16/23 21:49 69 18 190/114 H 96 08/16/23 21:48 66 08/16/23 21:48 95 08/16/23 20:22 67 18 201/116 H 97 08/16/23 16:52 37.2 C 70 19 203/143 H 99 O2 Del Method 08/17/23 01:20 Room Air 08/17/23 01:00 08/17/23 00:37 Room Air 08/17/23 00:00 Room Air 08/16/23 23:00 Room Air 08/16/23 21:49 Room Air 08/16/23 21:48 08/16/23 21:48 Room Air 08/16/23 20:22 Room Air 08/16/23 16:52 Room Air Diagnostic Findings Laboratory Results WBC 13.21 K/ul (4.8-10.8) H 08/16/23 17:40 RBC 5.22 M/uL (4.70-6.10) 08/16/23 17:40 Hgb 18.4 g/dl (14.0-18.0) H 08/16/23 17:40 Hct 49.4 % (42.0-52.0) 08/16/23 17:40 MCV 94.6 fL (80.0-100.0) 08/16/23 17:40 MCH 35.2 pg (25.0-34.0) H 08/16/23 17:40 MCHC 37.2 g/dL (32.0-36.0) H 08/16/23 17:40 RDW Std Deviation 41.1 fL (36.4-46.3) 08/16/23 17:40 RDW Coeff of Mona 11.9 % (11.5-14.5) 08/16/23 17:40 Plt Count 327 K/uL (130-400) 08/16/23 17:40 MPV 10.1 fL (9.4-12.4) 08/16/23 17:40 Immature Gran % (Auto) 0.5 % 08/16/23 17:40 Neut % (Auto) 83.9 % 08/16/23 17:40 Lymph % (Auto) 6.2 % 08/16/23 17:40 [place] % (Auto) 7.6 % 08/16/23 17:40 Eos % (Auto) 1.0 % 08/16/23 17:40 Baso % (Auto) 0.8 % 08/16/23 17:40 Neut # (Auto) 11.10 K/uL (1.40-6.50) H 08/16/23 17:40 Lymph # (Auto) 0.82 K/uL (1.20-3.40) L 08/16/23 17:40 [place] # (Auto) 1.00 K/uL (0.11-0.59) H 08/16/23 17:40 Eos # (Auto) 0.13 K/uL (0.00-0.50) 08/16/23 17:40 Baso # (Auto) 0.10 K/uL (0.00-0.20) 08/16/23 17:40 Immature Gran # (Auto) 0.06 K/uL (0.01-0.20) 08/16/23 17:40 Sodium 135 mmol/L (136-145) L 08/16/23 17:40 Potassium 4.0 mmol/L (3.5-5.1) 08/16/23 17:40 Chloride 95 mmol/L (98-107) L 08/16/23 17:40 Carbon Dioxide 24 mmol/L (21-32) 08/16/23 17:40 Anion Gap 16 (3-11) H 08/16/23 17:40 BUN 11 mg/dl (6-23) 08/16/23 17:40 Creatinine 1.35 mg/dl (0.6-1.4) 08/16/23 17:40 Est Cr Clr Drug Dosing 69.6 ml/min 08/16/23 17:40 Est GFR ( Amer) 68.0 ml/min 08/16/23 17:40 Est GFR (Non-Af Amer) 58.7 ml/min 08/16/23 17:40 BUN/Creatinine Ratio 8.1 (10-20) L 08/16/23 17:40 Glucose 141 mg/dl (70-99(Fasting)) H 08/16/23 17:40 Calcium 11.0 mg/dl (8.6-10.3) H 08/16/23 17:40 Total Bilirubin 2.2 mg/dl (0.2-1.0) H 08/16/23 17:40 AST 57 U/L (13-39) H 08/16/23 17:40 ALT 78 U/L (7-52) H 08/16/23 17:40 Alkaline Phosphatase 87 U/L (34-104) 08/16/23 17:40 Troponin I High Sens 17.6 pg/ml (0-20) 08/16/23 17:40 Total Protein 8.6 gm/dl (6.0-8.3) H 08/16/23 17:40 Albumin 5.4 gm/dl (3.4-5.0) H 08/16/23 17:40 Globulin 3.2 gm/dl (2.5-4.0) 08/16/23 17:40 Albumin/Globulin Ratio 1.7 (0.9-2) 08/16/23 17:40 Lipase 29 U/L (11-82) 08/16/23 17:40 Urine Color [place] 08/16/23 21:51 Urine Appearance Clear (Clear) 08/16/23 21:51 Urine pH 5.5 (4.5-7.5) 08/16/23 21:51 Ur Specific [place] > 1.045 (1.000-1.030) H 08/16/23 21:51 Urine Protein 3+ (Negative) H 08/16/23 21:51 Urine Glucose (UA) Negative (Negative) 08/16/23 21:51 Urine Ketones Trace (Negative) H 08/16/23 21:51 Urine Blood Negative (Negative) 08/16/23 21:51 Urine Nitrite Positive (Negative) A 08/16/23 21:51 Urine Bilirubin 2+ (Negative) H 08/16/23 21:51 Urine Urobilinogen Negative (Negative) 08/16/23 21:51 Ur Leukocyte Esterase Trace (Negative) H 08/16/23 21:51 Urine WBC (Auto) 10-30 /hpf (0-5) H 08/16/23 21:51 Urine RBC (Auto) 0-4 /hpf (0-4) 08/16/23 21:51 U Hyaline Cast (Auto) 10-30 /lpf (0-5) H 08/16/23 21:51 U Epithel Cells (Auto) >30 /lpf (0-5) H 08/16/23 21:51 Urine Bacteria (Auto) Negative (Negative) 08/16/23 21:51 Impressions Chest X-Ray 08/16/23 16:54 XR chest 1V not portable HISTORY: Chest pain, nonspecific COMPARISON: Chest 12/07/2020. FINDINGS: The lungs are clear. Cardiac silhouette is normal in size. No pleural effusions. No pneumothorax. IMPRESSION: No acute process. ACT 112: Negative or not required by law. Electronically signed by: Darron Zamarripa M.D. 08/16/2023 5:36 PM Abdomen/Pelvis CT 08/16/23 20:51 Exam(s): CT ABDOMEN + PELVIS With Contrast IV Amt: OPTIRAY 320 92ML EXAM: CT Abdomen and Pelvis With Intravenous Contrast CLINICAL HISTORY: Reason for exam: RUQ abd pain, elevated lfts, fevers, chills. TECHNIQUE: Axial computed tomography images of the abdomen and pelvis with intravenous contrast. CTDI is 26.29 mGy and DLP is 1237.92 mGy-cm. Automated exposure control was utilized for the study. A dose lowering technique was utilized adhering to the principles of ALARA. CONTRAST: Patient received OPTIRAY 320 92ML of IV contrast COMPARISON: CT abdomen/pelvis on 11/25/2020 FINDINGS: Lung bases: Small calcified granuloma at the right lung base. No consolidation. ABDOMEN: Liver: Hepatic steatosis. Gallbladder and bile ducts: Unremarkable. No calcified stones. No ductal dilation. Pancreas: Unremarkable. No mass. No ductal dilation. Spleen: Unremarkable. No splenomegaly. Adrenals: Unremarkable. No mass. Kidneys and ureters: Small left renal cyst. No hydronephrosis or obstructing stone. Stomach and bowel: Evaluation of the stomach is limited by underdistention. No mucosal thickening. No bowel obstruction or inflammation. PELVIS: Appendix: Normal appendix. Bladder: Bladder wall thickening with surrounding fat stranding, concerning for cystitis. Please correlate with urinalysis. Reproductive: Unremarkable as visualized. ABDOMEN and PELVIS: Intraperitoneal space: Unremarkable. No free air. No significant fluid collection. Bones/joints: Degenerative changes of the spine. 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 No acute fracture. No dislocation. Soft tissues: Unremarkable. Vasculature: Minimal atherosclerotic changes of the vasculature. No aortic aneurysm or dissection. Lymph nodes: Unremarkable. No enlarged lymph nodes. IMPRESSION: Bladder wall thickening with surrounding fat stranding, concerning for cystitis. Please correlate with urinalysis. Electronically signed by: Valerie Adan M.D. 08/16/23 22:36 PM ECG Additional Comments: ECG. Normal sinus rhythm at rate of 64.T wave abnormality in lateral leads. Code Status & VTE Plan VTE Prophylaxis Plan VTE Prophylaxis will be ordered: Yes
[2023-08-17] MEDS ORDERED: NITROGLYCERIN SL 0.4 MG/TAB TAB SL PRN (03:33)
[2023-08-17] MEDS: LABETALOL HCL IV 5 MG/ML 20ML IV STA (03:37)
--- NOTE | 2023-08-17 04:53 | Surgery Consultation ---
Date of Consultation August 17, 2023 Assessment & Plan (1) Elevated LFTs: The patient has been admitted on the hospitalist service. From surgery perspective we recommend the following: Provide analgesics provide antiemetics Keep n.p.o. for the present time Antibiotics in the form of Zosyn have been initiated which should continue Follow serial labs Due to elevation of patient's LFTs a GI consultation as well as an MRCP have been obtained. Further surgical recommendations to be made based on the results of this consultation and this MRCP. If there is evidence of choledocholithiasis ERCP may be required. If there is no evidence of choledocholithiasis Dr. Fields will determine timing of possible cholecystectomy As noted in the HPI, the patient does have evidence of cystitis on CT scan as well as an abnormal urinalysis. The selected antibiotics noted above should cover the most likely urinary pathogens. An appropriate culture has been sent. Supervising Physician Co-Signing Physician Notes I have seen and examined the patient. He also states he has b/l lower back pain with tenderness and pelvic tenderness. Also does have RUQ pain and TTP. So far there are no GB abnormalities on imaging and he has other findings. He has also had significant hypertension that has been under investigation as well as tremors which have been present for the past several weeks. Patient tells me he has had difficulty eating for the past year worsening over the past 6 months which he attributes to significant change/loss in taste which he is unsure as to what could have caused this. Began treatment for significant UTI with IV antibiotics. From a surgical perspective, will f/u am labs and abdominal examination. No acute surgical intervention at this time. History of Present Illness Reason for Consultation: Elevated LFTs with possible cholecystitis Attending Physician: Mayank Ibarra MD History of Present Illness This is a 53-year-old male who was in the outpatient clinic seeing Dr. Nicholas Dyson of [facility] surgery for evaluation for cholecystectomy. Patient says that he has been having some generalized off-and-on abdominal discomfort in the right upper quadrant with some associated nausea and vomiting. Patient also notes that he has been having intermittent chills and rigors. He denies any chest pain or shortness of breath. He presents due to an outpatient US which did not identify stones in the GB or CBD but did show perihepatic ascites as per the report the patient show from his portal of this imaging done on 08/09/23. Since arrival to the hospital the patient has had labs and imaging which I independent reviewed. CBC revealed white blood cell count was 13.2. Hemoglobin and hematocrit 18.4 and 49.4. Platelet count is normal. Chemistry profile shows sodium is 135 with a normal potassium. BUN and creatinine are both normal. The patient is noted to have elevated bilirubin at 2.2, his AST and ALT are 57 and 78 respectively. His alkaline phosphatase is normal. His lipase is not elevated. Patient was noted to have positive nitrites as well as trace leukocyte Estrace and pyuria with 10-30 white blood cells per high-power field on urinalysis. He had no bacteria on this study.Chest x-ray showed no evidence of pneumonia. Patient also had a CT scan of the abdomen and pelvis which showed an unremarkable gallbladder without any biliary ductal dilatation or calcified gallstones. It is nowhere the mention the patient had bladder wall thickening and surrounding fat stranding concerning for cystitis on the study. At the time of my interview he was resting comfortably bed no distress Allergies Allergy/AdvReac Type Severity Reaction Status Date / Time magnesium oxide Allergy Intermediate Rash Verified 08/16/23 22:05 [From Prepopik] sodium picosulfate Allergy Intermediate Rash Verified 08/16/23 22:05 [From Prepopik] erythromycin base AdvReac Severe seizures Verified 08/16/23 22:05 Home Medications Medication Instructions Recorded Confirmed Type omeprazole 40 mg capsule,delayed 40 mg PO DAILY #90 caps 10/26/21 08/16/23 Rx release diphenhydramine HCl 25 mg capsule 25 mg PO DAILY 08/16/23 08/16/23 History (Benadryl) fluoxetine 10 mg capsule 10 mg PO DAILY 08/16/23 08/16/23 History losartan 25 mg tablet 25 mg PO DAILY 08/16/23 08/16/23 History rosuvastatin 20 mg tablet 20 mg PO DAILY 08/16/23 08/16/23 History metoprolol tartrate 100 mg tablet 100 mg PO BID 08/17/23 08/17/23 History Patient History Medical History Hx of renal failure History of. Secondary to medication reactions - kidney function has since improved to WNL GERD (gastroesophageal reflux disease) Avascular necrosis of hip Constipation Severe obstructive sleep apnea No device- "it did not help" per patient Chronic back pain Hyperlipidemia Hypertension Surgical History History of hip surgery Hx of tonsillectomy History of hand surgery right History of laminectomy lumbar Family History Mother Dementia Grandmother (Maternal) Dementia Aunt Dementia Denies family history of Colon cancer Ovarian cancer Prostate cancer Myocardial infarction Breast cancer Social History Smoking Status: Never smoker Second Hand Exposure: No; Do You Dip or Chew Tobacco: No; Hx Alcohol Use: Yes Alcohol type: beer Alcohol Intake Frequency: 4 or More x per/Week Alcohol Intake Frequency Comment: 15-25 drinks/week Hx Substance Use: No Preferred Language: Kinyarwanda Communication Ability: Effective Visual Impairment: No Limitations Hearing Ability: Normal Outbound Sales Professional Required: No Beliefs That Will Affect Care: None marital status: Current Living Situation: Spouse current occupational status: retired Feels Safe at Home: Yes Safety Concerns: Feels Safe At This Time Childhood Exposure to Second-Hand Smoke: Yes Diet: regular Diet Comment: no diet plans caffeine: Yes during the past year weight has: decreased > 10 lbs Dental Care, Regularly: Yes Physical Activity Frequency: Does not Exercise Seatbelt Use: always Sunscreen Use: No Do you think of yourself as: straight/heterosexual Assistive Devices: Cane Review of Systems Constitutional: + fever and + chills Ear, Nose, Mouth, Throat: no hearing loss Respiratory: no cough and no dyspnea Cardiovascular: no chest pain Gastrointestinal: as per Subjective / HPI Genitourinary: no dysuria Musculoskeletal: no back pain Integumentary: no rash Neurologic: no localized weakness Physical Exam Constitutional: WD/WN, vitals as above Eyes: + anicteric sclerae ENMT: Ears: no hearing impairment Neck: trachea midline Respiratory: normal respiratory effort; no respiratory distress and no labored breathing Cardiovascular: Rate/Rhythm: regular rate and regular rhythm Gastrointestinal (Abdomen): At the time of my exam patient had positive bowel sounds. His abdomen is soft and nondistended. There is no rebound tenderness or guarding. The patient only had slight tenderness with palpation in the right upper quadrant Musculoskeletal: No calf tenderness Skin: no rashes Neurologic: moves all extremities Psychiatric: A+Ox3, euthymic affect Results & Data Vital Signs (Past 12 Hours) Vital Signs Temp Pulse Pulse Resp BP BP Pulse Ox 08/17/23 03:54 37.0 C 72 18 168/101 H 99 08/17/23 02:53 66 08/17/23 01:20 64 16 165/98 H 97 08/17/23 01:00 66 18 180/106 H 97 08/17/23 00:37 63 19 180/120 H 96 08/17/23 00:00 64 17 189/117 H 98 08/16/23 23:00 65 15 170/106 H 98 08/16/23 21:49 69 18 190/114 H 96 08/16/23 21:48 66 08/16/23 21:48 95 08/16/23 20:22 67 18 201/116 H 97 08/16/23 16:52 37.2 C 70 19 203/143 H 99 O2 Del Method 08/17/23 03:54 Room Air 08/17/23 02:53 08/17/23 01:20 Room Air 08/17/23 01:00 08/17/23 00:37 Room Air 08/17/23 00:00 Room Air 08/16/23 23:00 Room Air 08/16/23 21:49 Room Air 08/16/23 21:48 08/16/23 21:48 Room Air 08/16/23 20:22 Room Air 08/16/23 16:52 Room Air Diagnostic Findings CT with cystitis MRCP no GB stones or other abnormality of the GB, no CBD stones or dilation PG Care Time/CCT Total # of Minutes Spent Total Time Spent with Patient: Total time spent is greater than 50% in coordination of care (as documented) at patient's floor/unit and/or counseling patient: Coding Level of Care Code 02390 IN/OBS CONSULT LVL 5,80M Diagnoses Elevated LFTs R79.89
[2023-08-17] MEDS: FOLIC ACID 1 MG in SYRINGE 9.8 ML IV STA (05:03)
[2023-08-17] MEDS: THIAMINE HCL 100 MG in SYRINGE 9 ML IV STA (05:03)
[2023-08-17] MEDS: PIPERACILLIN/TAZOBACTAM 4.5 GM/100 ML BAG IV STA (05:03)
[2023-08-17] MEDS: SODIUM CHLORIDE 0.9% 1,000 ML IV SCH (05:03)
[2023-08-17] MEDS: METOPROLOL TARTRATE 1 MG/ML VIAL IV SCH (06:14)
--- NOTE | 2023-08-17 06:36 | Magnetic Resonance Report ---
Exam(s): MRI MRCP EXAM: MR Abdomen Without Intravenous Contrast, MRCP Protocol CLINICAL HISTORY: Reason for exam: n/v, elevated lft, cholecystitis?. TECHNIQUE: Multiplanar magnetic resonance images of the abdomen without intravenous contrast using MRCP protocol. COMPARISON: No relevant prior studies available. FINDINGS: Bile ducts: Unremarkable. CBD caliber measures 5 mm in diameter no evidence of choledocholithiasis. No stones. No ductal dilation. Gallbladder: Unremarkable. No stones. Liver: No focal hepatic lesion identified. IMPRESSION: No evidence of pancreatic or biliary ductal obstruction Electronically signed by: Bijan Marquez MD 08/17/23 06:35 AM
[2023-08-17 07:52] LABS: Basophils # (auto) 0.07 K/uL (0.00-0.20); Basophils % (auto) 0.9 %; Eosinophils # (auto) 0.05 K/uL (0.00-0.50); Eosinophils % (auto) 0.6 %; Hematocrit (blood only) 40.9 % (42.0-52.0); Hemoglobin 15.3 g/dl (14.0-18.0); Immature Granulocytes # (auto) 0.03 K/uL (0.01-0.20); Immature Granulocytes % (auto) 0.4 %; Lymphocytes # (auto) 1.96 K/uL (1.20-3.40); Lymphocytes % (auto) 24.8 %; Mean Corpuscular Hemoglobin 35.4 pg (25.0-34.0); Mean Corpuscular Hgb Conc 37.4 g/dL (32.0-36.0); Mean Corpuscular Volume 94.7 fL (80.0-100.0); Mean Platelet Volume 9.9 fL (9.4-12.4); Monocytes # (auto) 0.93 K/uL (0.11-0.59); Monocytes % (auto) 11.8 %; Neutrophils # (auto) 4.86 K/uL (1.40-6.50); Neutrophils % (auto) 61.5 %; Platelet Count 213 K/uL (130-400); RDW Standard Deviation 41.6 fL (36.4-46.3); Red Blood Count 4.32 M/uL (4.70-6.10)
[2023-08-17 08:02] LABS: Albumin Level 4.1 gm/dl (3.4-5.0); BUN Creatinine Ratio 11.5 (10-20); Bilirubin Direct 0.5 mg/dl (0-0.2); Bilirubin,Total 1.8 mg/dl (0.2-1.0); Calcium 9.2 mg/dl (8.6-10.3); Creatinine Clr Calc Pharmacy 71.7 ml/min; Est GFR (African American) 70.5 ml/min; Est GFR (Non-African American) 60.9 ml/min; Magnesium 1.2 mg/dl (1.7-2.4); Potassium 3.3 mmol/L (3.5-5.1); Total Protein 6.6 gm/dl (6.0-8.3); Troponin I High Sensitivity 16.6 pg/ml (0-20)
[2023-08-17] MEDS: FLUoxetine HCL 10 MG CAP PO SCH (08:02)
[2023-08-17] MEDS: LOSARTAN POTASSIUM 25 MG TAB PO SCH (08:03)
[2023-08-17] MEDS: ROSUVASTATIN CALCIUM 20 MG TAB PO SCH (08:03)
--- OUTSIDE RECORDS SUMMARY | 2023-08-17 08:29 | External Medical Summary | Summary of Care ---
Author Name Unknown Organization [facility] Address [address] [place] [address] Phone [phone] Care Team Providers Care Manager Part Name Role Phone Unavailable Primary Care Provider Unavailabl e Reason for Visit * Reason Onset Date Comments Appointment 07/26/2023 US Encounter Details Date Type Department Care Team (Late st Contact Info) Description 07/26/2023 Telephone Family Medicine [address] [place] [phone] Mehnaz Stuart PA-C [address] [place] [address] [place] [phone] Appointment ([place] ) Allergies Active Allergy Reactions Criticality Noted Date Comments Erythromycin Seizure High 07/25/2023 documented as of this encounter (statuses as of 07/29/2023) Medications Medication Sig Dispensed Refills Start Date End Date Status Metoprolol Tartrate 100 MG Oral Tablet (Lopressor) Take 1 Tablet by mouth every evening. 0 Active diphenhydrAMINE HCl 25 MG Oral Tablet (Benadryl Allergy) Take 1 Tablet by mouth every 6 hours as needed for Itching. 0 Active Sudafed Sinus 12HR Press+Pain 120-220 MG Tablet Extended Release 12 Hour (Pseudoephedrine-Napr oxen Na ER) Take 1 Tablet by mouth in the morning and 1 Tablet before bedtime. 0 Active Omeprazole 40 MG Oral Capsule Delayed Release (PriLOSEC)Indications :Gastroesophageal reflux disease without esophagitis Take 1 Capsule by mouth in the morning. 90 Capsule 3 07/25/2023 Active Losartan Potassium 25 MG Oral Tablet (Cozaar) Take 1 Tablet by mouth in the morning. 90 Tablet 1 07/25/2023 Active FLUoxetine HCl 10 MG Oral Capsule (PROzac) Take 1 Capsule by mouth in the morning. 90 Capsule 1 07/25/2023 Active Rosuvastatin Calcium 20 MG Oral Tablet (Crestor) Take 1 Tablet by mouth in the morning. 90 Tablet 3 07/26/2023 Active documented as of this encounter (statuses as of 07/29/2023) Active Problems No known active problems documented as of this encounter (statuses as of 07/29/2023) Immunizations Name Administration Dates Next Due COVID-19, MRNA-LNP, 23-24, P F, 30 MCG/0.3 mL, 12 YRS AND ABOVE, IM (PFIZER-Comirnaty) 07/25/2023 Seasonal Influenza, PF, 6 M & above, IM , (FluLaval or Fluzone) 07/25/2023 Zoster Vaccine Recombinant (Shingrix) 11/24/2021 ,11/22/2020 documented as of this encounter Social History Tobacco Use Types Packs/Day Years Used Date Smoking Tobacco: Never Smokeless Tobacco: Never Alcohol Use Standard Drinks/Week Comments Yes 62 (1 standard drink = 0.6 oz pu re alcohol) Sex and Gender Information Value Date Recorded Sex Assigned at Not on file Gender Identity Not on file Sexual Orientation Not on file Job Start Date Occupation Industry Not on file Not on file Not on file documented as of this encounter Miscellaneous Notes * Telephone Encounter - Savita Brownlee OSA - 07/29/2023 8:37 AM EDT I left message on patient's VM to call me (RE: Scheduling Abd US). * Telephone Encounter - Anthony Bardales LPN - 07/26/2023 3:00 PM EST Patient is aware of Note Below He Needs US scheduled Will be out of town from 07/29-08/05 * Telephone Encounter - Mehnaz Stuart PA-C - 07/26/2023 9:21 AM EST Please call pt. His cholesterol is very high. We need to start him on a cholesterol lowering medicine. Sent to mail order. Liver functions are also elevated, along with bilirubin. We need to get an US or liver, gallbladder, pancreas. Order in. documented in this encounter Plan of Treatment Upcoming Encounters Date Type Department Care Team (Late st Contact Info) Description 07/29/2023 2:40 PM EDT Office Visit Neurology [facility] [address] [facility] [place] [address] Rhona Matthews PA-C [address] [facility] [place] [address] 08/22/2023 1:00 PM EDT Office Visit Family [address] [phone] Mehnaz Stuart PA-C [address] [place] [address] [place] [address] 09/09/2023 9:00 AM EDT Office Visit Pulmonary Medicine, [facility] [address] [facility] [place] [address] Bebeto Fang MD [address] [facility] [place] [address] 11/05/2023 1:00 PM EDT Office Visit Family [address] [phone] Denis Gage MD [address] [place] [address] [place] [phone] Scheduled Orders Name Type Priority Associated Diagnoses Orde r Schedule US ABDOMEN LIMITED Medical Imaging Routine Elevated LFTs Expected: 08/02/2023, Expires: 08/25/2024 Health Maintenance Due Date Last Done Comments Pneumococcal Vaccine: Pediatrics (0 to 5 Years) and At-Risk Patients (6 to 64 Years) (1 of 2 - PCV) 1974 Depression Screening 1980 HIV Screening 1983 DTaP,Tdap,and Td Vaccines (1 - Tdap) 1987 Hepatitis B (1 of 3 - 19+ 3-dose series) 1987 Cologuard 2013 Colonoscopy 2013 Colorectal Cancer Screening 2013 Fecal Occult Blood Test 2013 Sigmoidoscopy 2013 Diabetes Screening 07/24/2026 07/25/2023 Lipid Panel 07/24/2028 07/25/2023 Zoster Vaccines Completed 11/24/2021, 11/22/2020 COVID-19 Vaccine Completed 07/25/2023, , 08/24/2021, Additional history exists Hepatitis C Screening Completed 07/25/2023 Influenza Vaccine (FLU shot) Completed 11/2023, 03/01/2021, 04/02/2018 GARDASIL-HPV IMMUNIZATION SERIES Aged Out No longer eligible based on patient's age to complete this topic MENINGOCOCCAL (MENACTRA/MENVEO) Aged Out No longer eligible based on patient's age to complete this topic documented as of this encounter Medical Devices Not on filedocumented as of this encounter Results * ACUTE HEPATITIS PANEL (07/25/2023 1:32 PM EST) Hepatitis A Antibody IgM Negative Negative 07/26/2023 9:59 AM EST [facility] [place] Hepatitis B Core Antibody IgM Negative Negative 07/26/2023 9:59 AM EST [facility] Hepatitis B Surface Antigen Negative Negative 07/26/2023 9:59 AM EST [facility] Hepatitis C Antibody Negative Negative 07/26/2023 9:59 AM EST [facility] Blood Venous blood specimen / Unknown Venipuncture / Unknown 07/25/2023 1:32 PM EST 07/25/2023 1:35 PM EST Mehnaz Stuart PA-C LAB BLOOD ORDERABL ES [facility] [address] [place] [address] documented in this encounter Visit Diagnoses Diagnosis Elevated LFTs- Primary Other abnormal blood chemistry documented in this encounter
--- OUTSIDE RECORDS SUMMARY | 2023-08-17 08:29 | External Medical Summary | Summary of Care ---
Author Name Unknown Organization [facility] Address [address] [place] [address] Phone [phone] Care Team Providers Care Information And Data Architect Analyst Name Role Phone Unavailable Primary Care Provider Unavailabl e Reason for Referral * Evaluate & Treat - Unlimited Visits (Within 10 days (routine)) - Pending Review Specialty Diagnoses / Procedures Referred By Sarah rosa Referred To Contact General Surgery Diagnoses Elevated LFTs Mehnaz Stuart PA-C [address] [place] [address] [place] [phone] Referral ID Status Reason Start Date Expiration Date Visits Requested Visits Authorized [id number] Pending Review Specialty Services Required 08/12/[phone] Question Answer Referral Priority Within 10 days (routine) Where should this appointment be scheduled? [facility] What condition is the patient being seen for? General Surgery Conditions What condition is the patient being seen for? Gallbladder Comments Elevated LFTs and bilirubin - US shows gallbladder adenomyomatosis. Reason for Visit * Reason Onset Date Comments Test Results 08/12/2023 Encounter Details Date Type Department Care Team (Late st Contact Info) Description 08/12/2023 Telephone Family Medicine [facility] [place] [phone] Mehnaz Stuart PA-C [address] [place] [address] [place] [id number] Test Results Allergies Active Allergy Reactions Criticality Noted Date Comments Erythromycin Seizure High 07/25/2023 documented as of this encounter (statuses as of 08/12/2023) Medications Medication Sig Dispensed Refills Start Date [...] as of this encounter (statuses as of 08/12/2023) Active Problems No known active problems documented as of this encounter (statuses as of 08/12/2023) Immunizations Name Administration Dates Next Due COVID-19, [...] encounter Miscellaneous Notes * Telephone Encounter - Mehnaz Stuart PA-C - 08/12/2023 8:41 AM EDT MyG sent. documented in this encounter Plan of Treatment Upcoming Encounters Date Type Department Care Team (Late st Contact Info) Description 08/22/2023 1:00 PM EDT Office Visit Family Medicine [address] [phone] Mehnaz Stuart PA-C [address] [place] [address] [place] [address] 09/09/2023 9:00 AM EDT Office Visit Pulmonary Medicine, [facility] [address] [facility] [place] [address] [facility]ebeto Fang MD [address] [facility] [address] 11/05/2023 1:00 PM EDT Office Visit Family [address] [phone] Denis Gage MD [address] [place] [address] [place] [id number] Scheduled Referrals Name Type Priority Associated Diagnoses Orde r Schedule SURGERY REFERRAL OP Referral Within 10 da ys (routine) Elevated LFTs Ordered: 08/12/2023 Health Maintenance Due Date Last Done Comments [...] Not on filedocumented as of this encounter Visit Diagnoses Diagnosis Elevated LFTs- Primary Other abnormal blood chemistry documented in this encounter
--- OUTSIDE RECORDS SUMMARY | 2023-08-17 08:29 | External Medical Summary ---
Author Name Unknown Address Unknown Organization [id number]:[facility] [place] [address] [place] [address] Laboratory Report Ordering Provider Test Date Status ESTRELLA JAMES 07/25/2023 13:32:13 Final Observation Date Value Abnormality Reference (Units ) Status Hep A IgM 07/25/2023 13:32:13 Negative Negative Final Hep B Core IgM 07/25/2023 13:32:13 Negative Negat meaghan Final Hep B surface Ag 07/25/2023 13:32:13 Negative Neg ative Final Hep C Ab 07/25/2023 13:32:13 Negative Negative Final Performing Location LABORATORY C - [address] [place] [address]
--- OUTSIDE RECORDS SUMMARY | 2023-08-17 08:29 | External Medical Summary ---
Author Name Unknown Address Unknown Organization [id number]:[facility]ATORY [facility] [place] - [address] [facility] [address] Laboratory Report Ordering Provider Test Date Status ESTRELLA JAMES 07/25/2023 13:32:13 Final Observation Date Value Abnormality Reference (Units ) Status SYNC LEUKOCYTES IN BLOOD BY AUTOMATED COUNT 07/25/2023 13:32:13 8.65 4.00-10.80 (K/uL) Final Segs 07/25/2023 13:32:13 67.1 40.0-75.0 (%) Final Lymphs % 07/25/2023 13:32:13 17.3 Below low normal 18.0-42.0 (%) Final Monos 07/25/2023 13:32:13 8.8 1.0-11.0 (%) Final Eosinophils 07/25/2023 13:32:13 4.3 0.0-6.0 (%) Final Basos 07/25/2023 13:32:13 2.0 0.0-2.0 (%) Final Immature Granulocyte, Percent 07/25/2023 13:32:13 0.5 0.0-2.0 (%) Final Absolute Segs 07/25/2023 13:32:13 5.81 1.80-7.70 (K/uL) Final Lymphs, absolute 07/25/2023 13:32:13 1.50 1.00-4.80 (K/ul) Final Monos, Abs 07/25/2023 13:32:13 0.76 0.00-1.10 (K/uL) Final Eos, Abs 07/25/2023 13:32:13 0.37 0.00-0.70 (K/uL) Final Basos, Abs 07/25/2023 13:32:13 0.17 0.00-0.20 (K/uL) Final Immature Granulocytes, Number 07/25/2023 13:32:13 0.04 0.00-0.20 (K/uL) Final Performing Location LABORATORY [facility] [place] - [address] [facility] [address]
--- OUTSIDE RECORDS SUMMARY | 2023-08-17 08:29 | External Medical Summary | Summary of Care ---
Author Name Unknown Organization [facility] Address [address] [place] [address] Phone [phone] Care Team Providers Care Health Editor Name Role Phone Unavailable Primary Care Provider Unavailabl e Reason for Visit * Reason Onset Date Comments Appointment 07/26/2023 US Encounter Details Date Type Department Care Team (Late st Contact Info) Description 07/26/2023 Telephone Family Medicine [address] [place] [phone] Mehnaz Stuart PA-C [address] [place] [address] [place] [phone] Appointment ([place] ) Allergies [...] Encounter - Savita Brownlee OSA - 07/29/2023 11:47 AM EDT Abd US scheduled, pt aware. While I was on the phone with him, he said he was in the hospital 2 yrsago with kidney failure, and he was wondering if his kidneys could be looked at during the test. I told him that an abd US you need to be fasting 8 hrs and a kidney US needs to have a full bladder. Itold him that I would sent you a message to see about a kidney US. * Telephone Encounter - Savita Brownlee OSA [...] 07/29/2023 2:40 PM EDT Office Visit Neurology [facility] [address] [facility] [place] [address] Rhona Matthews PA-C [address] [facility] [place] [address] 08/07/2023 12:45 PM EDT Imaging Radiology [address] [place] [address] 08/22/2023 1:00 PM EDT Office Visit Family Medicine [address] [place] [phone] Mehnaz Stuart PA-C [address] [place] [address] [place] [address] 09/09/2023 9:00 AM EDT Office Visit Pulmonary Medicine, [facility] [address] [facility] [place] [address] Bebeto Fang MD [address] [place] [address] 11/05/2023 1:00 PM EDT Office Visit Family Medicine [address] [place] [phone] Denis Gage MD [address] [place] [address] [place] [id number] Scheduled Orders Name Type Priority Associated Diagnoses [...] Negative Negative 07/26/2023 9:59 AM EST LAB[facility]ATORY [facility] Hepatitis B Core Antibody IgM Negative Negative 07/26/2023 9:59 AM EST [facility] Hepatitis B Surface Antigen Negative Negative 07/26/2023 9:59 AM EST [facility] Hepatitis C Antibody Negative Negative 07/26/2023 9:59 AM EST LAB[facility]ATORY [facility] Blood Venous blood specimen / Unknown Venipuncture / Unknown 07/25/2023 1:32 PM EST 07/25/2023 1:35 PM EST Mehnaz Stuart PA-C LAB BLOOD ORDERABL ES [facility] [address] [place] [address] documented in this encounter Visit Diagnoses Diagnosis Elevated LFTs- Primary Other abnormal blood chemistry documented in this encounter
--- OUTSIDE RECORDS SUMMARY | 2023-08-17 08:29 | External Medical Summary ---
Author Name Unknown Address Unknown Organization K01:[facility]ATORY [facility] [place] [address] [facility] [address] Laboratory Report Ordering Provider Test Date Status ESTRELLA JAMES 07/25/2023 13:32:13 Final Observation Date Value Abnormality Reference (Units ) Status Triglyceride 07/25/2023 13:32:13 190 Above high normal <=174 (mg/dL) Final Triglyceride Reference Range s (mg/dL):
<150 Acceptable
150-174 Borderline high
175-499 High
>=500 Very high Cholesterol 07/25/2023 13:32:13 276 Above high normal <200 (mg/dL) Final Total Cholesterol Reference Ranges (mg/dL):
<200 Desirable
200-239 Borderline high
>=240 High HDL 07/25/2023 13:32:13 47 >39 (mg/dL ) Final HDL Cholesterol Reference Ra nges (mg/dL):
>=60 High (Desirable)
<50 Low (Undesirable) For Females
<40 Low (Undesirable) For Males NON-HDL CHOLESTEROL 07/25/2023 13:32:13 229 Above high normal <=159 (mg/dL) Final Non-HDL Cholesterol Referenc e Range (mg/dL):
<100 Target level for high risk ASCVD patient
<130 Optimal for general population
130-159 Near optimal for general population
160-189 Borderline High
190-219 High
>=220 Very High LDL, (calculated) 07/25/2023 13:32:13 191 Above high n ormal <=129 (mg/dL) Final LDL Cholesterol Reference Ra nges (mg/dL):
<70 Target level for high risk ASCVD patient
<100 Optimal for general population
100-129 Near optimal for general population
130-159 Borderline high
160-189 High
>=190 Very high Performing Location LAB[facility]ATORY [facility] [place] - [address] [facility] [address]
--- OUTSIDE RECORDS SUMMARY | 2023-08-17 08:29 | External Medical Summary | Summary of Care ---
Author Name Unknown Organization [facility] Address [address] [place] [address] Phone [phone] Care Team Providers Care Broker Associate Name Role Phone Unavailable Primary Care Provider Unavailabl e Reason for Referral * Evaluate & Treat - Unlimited Visits (Within 10 days (routine)) - Pending Review Specialty Diagnoses / Procedures Referred By Sarah rosa Referred To Contact Neurology Diagnoses Essential tremor Mehnaz Stuart PA-C [address] [place] [address] [place] [address] Referral ID Status Reason Start Date Expiration Date Visits Requested Visits Authorized [id number] Pending Review Specialty Services Required 07/25/[phone] Question Answer Referral Priority Within 10 days (routine) Where should this appointment be scheduled? [facility] Is this referral being placed for insurance purposes ONLY No, patient needs appointment [facility] NEUROLOGY REFERRAL QUESTIONS Other Conditions Comments Tremor - ongoing for years - getting worse * Evaluate & Treat - Unlimited Visits (Within 10 days (routine)) - Pending Review Specialty Diagnoses / Procedures Referred By Sarah rosa Referred To Contact Pulmonary Diseases / Pulmonary Diagnoses Mild persistent asthma without complication Mehnaz Stuart PA-C [address] [place] [address] [place] [address] Referral ID Status Reason Start Date Expiration Date Visits Requested Visits Authorized [id number] Pending Review Specialty Services Required 07/25/[phone] Question Answer Referral Priority Within 10 days (routine) Where should this appointment be scheduled? [facility] Primary Reason for Referral? Asthma/COPD Comments Asthma - ongoing and worsening SOB Reason for Visit * Reason Onset Date Comments NEW PATIENT Medication Administration 07/25/2023 Flu an d/or Pneumo Inj Encounter Details Date Type Department Care Team (Latest Contact Info) Description 07/25/2023 1:00 PM EST Office Visit Family Medicine [address] [place] [phone] Mehnaz Stuart PA-C [address] [place] [address] [place] [id number] HTN, goal below 130/80*; Screening for cardiovascular condition; Need for prophylactic vaccination and inoculation against influenza; Gastroesophageal reflux disease without esophagitis; Mild persistent asthma without complication; Essential tremor Medications Medication Sig Dispensed Refills Start Date End Date Status Metoprolol Tartrate 100 MG Oral Tablet (Lopressor) Take 1 Tablet by mouth every evening. 0 Active diphenhydrAMINE HCl 25 MG Oral Tablet (Benadryl Allergy) Take 1 Tablet by mouth every 6 hours as needed for Itching. 0 Active Sudafed Sinus 12HR Press+Pain 120-220 MG Tablet Extended Release 12 Hour (Pseudoephedrine-N aproxen Na ER) Take 1 Tablet by mouth in the morning and 1 Tablet before bedtime. 0 Active Omeprazole 40 MG Oral Capsule Delayed Release (PriLOSEC)Indicati ons:Gastroesophage al reflux disease without esophagitis Take 1 Capsule by mouth in the morning. 90 Capsule 3 07/25/2023 Active Losartan Potassium 25 MG Oral Tablet (Cozaar) Take 1 Tablet by mouth in the morning. 90 Tablet 1 07/25/2023 Active FLUoxetine HCl 10 MG Oral Capsule (PROzac) Take 1 Capsule by mouth in the morning. 90 Capsule 1 07/25/2023 Active Omeprazole 40 MG Oral Capsule Delayed Release (PriLOSEC) Take 1 Capsule by mouth in the morning. 0 07/25/2023 Discontinued (Refill) documented as of this encounter (statuses as of 07/25/2023) Active Problems No known active problems documented as of this encounter (statuses as of 07/25/2023) Immunizations Name Administration Dates Next Due COVID-19, MRNA-LNP, 23-24, P F, 30 MCG/0.3 mL, 12 YRS AND ABOVE, IM (PFIZER-Comirnaty) 07/25/2023 Seasonal Influenza, PF, 6 M & above, IM , (FluLaval or Fluzone) 07/25/2023 documented as of this encounter Social History [...] on file documented as of this encounter Last Filed Vital Signs Vital Sign Reading Time Taken Comments Blood Pressure 140/100 07/25/2023 12:58 PM EST Pulse 60 07/25/2023 12:58 PM EST Temperature 36.5 C (97.7 F) 07/25/2023 12:[address] Respiratory Rate - - Oxygen Saturation 99% 07/25/2023 12:58 PM EST Inhaled Oxygen Concentration - - Weight 94.6 kg (208 lb 9.6 oz) 07/25/2023 12:58 PM EST Height 172.7 cm (5' 8") 07/25/2023 12:58 PM EST Body Mass Index 31.72 07/25/2023 12:58 PM EST documented in this encounter Progress Notes * Mehnaz Stuart PA-C - 07/25/2023 1:02 PM EST Nursing Notes: Anthony Bardales LPN 07/25/23 1305 Sign at exiting of workspace Chief Complaint Patient presents with NEW PATIENT Medication Administration Flu and/or Pneumo Inj Get established. Need wellness lab work. Has not been seen by Dr. Dyson 2 years Needs Ref's: Tremors in hands Mental health Pulmonary ref The patient has been properly identified by confirmation of name and date of . Pt here today to establish. Pt with PMH of HTN, GERD, lung issues/asthma. Pt needs pulm ref. He has seen them in the past - years ago. He had PFT, bronchoscopy. Was told mild asthma? Is having more issues breathing and more SOB. Pt denies wheezing, cough, fever, chills. Hedoes have issues with allergies. Pt also with tremor in hands. It has been ongoing for years - getting worse. Pt also having anxiety/depression. He has never been on meds in the past. He would like to start onsomething. He doesn't want to be around anyone or leave the home. He lays kin bed a lot. Sleeps well but not too much. Pt denies being angry or irritated. Pt denies SI. BP elevated today. He is taking metoprolol 100 mg daily. He doesn't check his BP at home. Pt denieschest pain, headaches, dizziness, lightheadedness, swelling in legs. He is due for labs. Review of patient's allergies indicates: Not on File Current Outpatient Medications Medication Sig Dispense Refill Metoprolol Tartrate 100 MG Oral Tablet (Lopressor) Take 1 Tablet by mouth every evening. Omeprazole 40 MG Oral Capsule Delayed Release (PriLOSEC) Take 1 Capsule by mouth in the morning. diphenhydrAMINE HCl 25 MG Oral Tablet (Benadryl Allergy) Take 1 Tablet by mouth every 6 hours as needed for Itching. Sudafed Sinus 12HR Press+Pain 120-220 MG Tablet Extended Release 12 Hour (Pseudoephedrine-Naproxen Na ER) Take 1 Tablet by mouth in the morning and 1 Tablet before bedtime. No current facility-administered medications for this visit. No past medical history on file. Social History Socioeconomic History Marital status: Spouse name: Not on file Number of children: Not on file Years of education: Not on file Highest education level: Not on file Occupational History Not on file Tobacco Use Smoking status: Never Smokeless tobacco: Never Substance and Sexual Activity Alcohol use: Yes Alcohol/week: 64.0 standard drinks of alcohol Types: 64 1.5 oz of liquor per week Drug use: Yes Types: Marijuana Comment: Medical Marijuana card Sexual activity: Not on file Other Topics Concern Not on file Social History Narrative Not on file Social Determinants of Health Financial Resource Strain: Not on file Food Insecurity: Not on file Transportation Needs: Not on file Physical Activity: Not on file Stress: Not on file Social Connections: Not on file Intimate Partner Violence: Not on file Housing Stability: Not on file O:Blood pressure 140/100, pulse 60, temperature 36.5 C (97.7 F), temperature source Tympanic, height 1.727 m (5' 8"), weight 94.6 kg (208 lb 9.6 oz), SpO2 99%. GENERAL: alert, healthy, and no distress NECK: supple, no adenopathy, no bruits, thyroid normal size, non-tender, without nodularity EYES: PERRLA, conjunctiva are pink and non-injected, sclera clear EARS: External ears normal, Canals clear, TM's Normal NOSE: no mucosal erythema, no mucosal edema, no purulent discharge OROPHARYNX: no exudate, no erythema, lips, buccal mucosa, and tongue normal, and mucous membranes are moist HEART: regular rate & rhythm, no murmur, and no gallops LUNGS: chest symmetric with normal AP diameter, no chest deformities noted, no chest wall tenderness, lungs clear to auscultation ABDOMEN: abdomen soft, non-tender, normal bowel sounds, and no masses or organomegaly A:HTN, goal below 130/80 (Primary) - COMPREHENSIVE METABOLIC PANEL; Future; Expected date: 07/25/2023 Screening for cardiovascular condition - LIPID PANEL WITH DIRECT LDL IF TG IS HIGH; Future; Expected date: 07/25/2023 Need for prophylactic vaccination and inoculation against influenza - INFLUENZA VACC, QUAD, PF, 6 MONTHS & UP, 0.5 ML, IM Gastroesophageal reflux disease without esophagitis - Omeprazole 40 MG Oral Capsule Delayed Release (PriLOSEC); Take 1 Capsule by mouth in the morning. Mild persistent asthma without complication - PULMONARY REFERRAL OP Essential tremor - TSH WITH FREE T4 IF INDICATED; Future; Expected date: 07/25/2023 - CBC WITH WBC DIFFERENTIAL AND ANEMIA REFLEX WORKUP; Future; Expected date: 07/25/2023 - NEUROLOGY REFERRAL OP Other orders - COVID-19, MRNA-LNP, PF, 23-24, 30MCG/0.3ML, IM, 12YRS AND ABOVE (Stantum) - Losartan Potassium 25 MG Oral Tablet (Cozaar); Take 1 Tablet by mouth in the morning. - FLUoxetine HCl 10 MG Oral Capsule (PROzac); Take 1 Capsule by mouth in the morning. Will check some labs. Will refer to pulm, neuro. Start prozac 10 mg daily. Recheck with me in 4 weeks. Start losartan for BP. Any questions/problems, please call. If anything changes, worsens, develops new sx, please call [facility]. Est with PCP in 3 months. Follow-up: Return if symptoms worsen or fail to improve. | Check-out note: Schedule with PCP Mehnaz Stuart PA-C documented in this encounter Nursing Notes * Anthony Bardales LPN - 07/25/2023 1:02 PM EST Chief Complaint Patient presents with NEW PATIENT Medication Administration Flu and/or Pneumo Inj Get established. Need wellness lab work. Has not been seen by Dr. Dyson 2 years Needs Ref's: Tremors in hands Mental health - advised to call back of insurance card Pulmonary ref The patient has been properly identified by confirmation of name and date of . documented in this encounter Plan of Treatment Upcoming Encounters Date Type Department Care Team (Late st Contact Info) Description 07/29/2023 2:40 PM EDT Office Visit Neurology [facility] [address] [place] [address] Rhona Matthews PA-C [address] [place] [address] 08/22/2023 1:00 PM EDT Office Visit Family [address] [phone] Mehnaz Stuart PA-C [address] [place] [address] [place] [address] 09/09/2023 9:00 AM EDT Office Visit Pulmonary Medicine, [facility] [address] [facility] [place] [address] Bebeto Fang MD [address] [place] [address] 11/05/2023 1:00 PM EDT Office Visit Family [address] [phone] Denis Gage MD [address] [place] [address] [place] [phone] Pending Results Name Type Priority Associated Diagnoses Date /Time LIPID PANEL WITH DIRECT LDL IF TG IS HIGH Lab Routine Screening for cardiovascular condition 07/25/2023 1:32 PM EST COMPREHENSIVE METABOLIC PANEL Lab Routine HTN, goal below 130/80 07/25/2023 1:32 PM EST TSH WITH FREE T4 IF INDICATED Lab Routine Essential tremor 07/25/2023 1:32 PM EST CBC WITH WBC DIFFERENTIAL AND ANEMIA REFLEX WORKUP Lab Routine Essential tremor 07/25/2023 1:32 PM EST Scheduled Orders Name Type Priority Associated Diagnoses Orde r Schedule LIPID PANEL WITH DIRECT LDL IF TG IS HIGH Lab Routine Screening for cardiovascular condition Expected: 07/25/2023 (Approximate), Expires: 07/24/2024 COMPREHENSIVE METABOLIC PANEL Lab Routine HTN, goal below 130/80 Expected: 07/25/2023 (Approximate), Expires: 07/24/2024 TSH WITH FREE T4 IF INDICATED Lab Routine Essential tremor Expected: 07/25/2023 (Approximate), Expires: 07/24/2024 CBC WITH WBC DIFFERENTIAL AND ANEMIA REFLEX WORKUP Lab Routine Essential tremor Expected: 07/25/2023 (Approximate), Expires: 07/24/2024 Scheduled Referrals Name Type Priority Associated Diagnoses Orde r Schedule PULMONARY REFERRAL OP Referral Within 10 days (routine) Mild persistent asthma without complication Ordered: 07/25/2023 NEUROLOGY REFERRAL OP Referral Within 10 days (routine) Essential tremor Ordered: 07/25/2023 Health Maintenance Due Date Last Done Comments Diabetes Screening 1968 Lipid Panel 1968 Pneumococcal Vaccine: Pediatrics (0 to 5 Years) and At-Risk Patients (6 to 64 Years) (1 of 2 - PCV) 1974 Depression Screening 1980 HIV Screening 1983 Hepatitis C Screening 1986 DTaP,Tdap,and Td Vaccines (1 - Tdap) 1987 Hepatitis B (1 of 3 - 19+ 3-dose series) 1987 Cologuard 2013 Colonoscopy 2013 Colorectal Cancer Screening 2013 Fecal Occult Blood Test 2013 Sigmoidoscopy 2013 Zoster Vaccines Completed 11/24/2021, 11/22/2020 COVID-19 Vaccine Completed 07/25/2023, , 08/24/2021, Additional history exists Influenza Vaccine (FLU shot) Completed 11/2023, 03/01/2021, 04/02/2018 GARDASIL-HPV IMMUNIZATION SERIES Aged Out No longer eligible based on patient's age to complete this topic MENINGOCOCCAL (MENACTRA/MENVEO) Aged Out No longer eligible based on patient's age to complete this topic documented as of this encounter Medical Devices Not on filedocumented as of this encounter Visit Diagnoses Diagnosis HTN, goal below 130/80- Primary Unspecified essential hypertension Screening for cardiovascular condition Screening for other and unspecified cardiovascular conditions Need for prophylactic vaccination and inoculation against influenza Gastroesophageal reflux disease without esophagitis Esophageal reflux Mild persistent asthma without complication Unspecified asthma Essential tremor Essential and other specified forms of tremor documented in this encounter
--- OUTSIDE RECORDS SUMMARY | 2023-08-17 08:29 | External Medical Summary | Summary of Care ---
Author Name Unknown Organization [facility] Address [address] [facility] [place] [address] Phone [phone] Care Team Providers Care Director Operations Name Role Phone Unavailable Primary Care Provider Unavailabl e Reason for Visit * Reason Comments Outpatient Testing Encounter Details Date Type Department Care Team (Late st Contact Info) Description 07/25/2023 1:40 PM EST Laboratory Laboratory [address] [place] [phone] [place] [address] Screening for cardiovascular condition; HTN, goal below 130/80; Essential tremor Medications Medication Sig Dispensed Refills [...] the morning. 90 Capsule 1 07/25/2023 Active documented as of this encounter (statuses as of 07/26/2023) Active Problems No known active problems documented as of this encounter (statuses as of 07/26/2023) Immunizations Name Administration Dates Next Due COVID-19, [...] on file documented as of this encounter Plan of Treatment Upcoming Encounters Date Type Department Care Team (Late st Contact Info) Description 07/29/2023 2:40 PM EDT Office Visit Neurology [facility] [address] [facility] [place] [address] Rhona Matthews PA-C [address] [facility] [place] [address] 08/22/2023 1:00 PM EDT Office Visit [address] [phone] Mehnaz Stuart PA-C [address] [place] [address] [place] [address] 09/09/2023 9:00 AM EDT Office Visit Pulmonary Medicine, [facility] [address] [facility] [place] [phone] Bebeto Fang MD [address] [place] [address] 11/05/2023 1:00 PM EDT Office Visit Family Medicine [address] [place] [phone] Denis Gage MD [address] [place] [address] [place] [address] Health Maintenance Due Date Last Done Comments [...] Not on filedocumented as of this encounter Procedures Procedure Name Priority Date/Time Associated Diagnosis Comments ANEMIA REFLEX CHEMISTRY HOLD Routine 07/25/2023 1:32 PM EST Essential tremor ANEMIA CBC Routine 07/25/2023 1:32 PM EST Essential tremor DIFFERENTIAL, AUTOMATED Routine 07/25/2023 1:32 PM EST Essential tremor DIFFERENTIAL, AUTOMATED Routine 07/25/2023 1:32 PM EST Essential tremor TSH WITH FREE T4 IF INDICATED Routine 07/25/2023 1:32 PM EST Essential tremor LIPID PANEL WITH DIRECT LDL IF TG IS HIGH Routine 07/25/2023 1:32 PM EST Screening for cardiovascular condition COMPREHENSIVE METABOLIC PANEL Routine 07/25/2023 1:32 PM EST HTN, goal below 130/80 documented in this encounter Results * ANEMIA REFLEX CHEMISTRY HOLD (07/25/2023 1:32 PM EST) Blood Venous blood specimen / Unknown Venipuncture / Unknown 07/25/2023 1:32 PM EST 07/25/2023 1:35 PM EST Mehnaz Stuart PA-C LAB BLOOD ORDERABL ES [facility] [address] [place] [address] * (ABNORMAL) DIFFERENTIAL, AUTOMATED (07/25/2023 1:32 PM EST) WBC 8.65 4.00 - 10.80 K/uL 07/25/2023 11:33 PM EST [facility] Neutrophils % 67.1 40.0 - 75.0 % 07/25/2023 11:33 PM EST [facility] Lymphocytes % 17.3(L) 18.0 - 42.0 % 07/25/2023 11:33 PM EST [facility] Monocytes % 8.8 1.0 - 11.0 % 07/25/2023 11:33 PM EST [facility] Eosinophils % 4.3 0.0 - 6.0 % 07/25/2023 11:33 PM EST [facility] Basophils % 2.0 0.0 - 2.0 % 07/25/2023 11:33 PM EST [facility] Immature Granulocytes % 0.5 0.0 - 2.0 % 07/25/2023 11:33 PM EST [facility] Absolute Neutrophils 5.81 1.80 - 7.70 K/uL 07/25/2023 11:33 PM EST [facility] Absolute Lymphocytes 1.50 1.00 - 4.80 K/ul 07/25/2023 11:33 PM EST [facility] Absolute Monocytes 0.76 0.00 - 1.10 K/uL 07/25/2023 11:33 PM EST [facility] Absolute Eosinophils 0.37 0.00 - 0.70 K/uL 07/25/2023 11:33 PM EST [facility] Absolute Basophils 0.17 0.00 - 0.20 K/uL 07/25/2023 11:33 PM EST [facility] Absolute Immature Granulocytes 0.04 0.00 - 0.20 K/uL 07/25/2023 11:33 PM EST [facility] Blood Venous blood specimen / Unknown Venipuncture / Unknown 07/25/2023 1:32 PM EST 07/25/2023 1:35 PM EST Mehnaz Stuart PA-C LAB BLOOD ORDERABL [facility] [address] [place] [address] * (ABNORMAL) ANEMIA CBC (07/25/2023 1:32 PM EST) WBC 8.65 4.00 - 10.80 K/uL 07/25/2023 11:33 PM EST [facility] RBC 4.62 4.50 - 5.25 M/uL 07/25/2023 11:33 PM EST [facility] HGB 17.3(H) 14.0 - 16.8 g/dL 07/25/2023 11:33 PM EST [facility] Comment: Anemia reflex testing triggers on a HGB < 12.0 for Females and HGB < 13.0 for Males in accordance with the WHO Anemia Guidelines Anemia reflex testing triggers on a HGB < 12.0 for Females and HGB < 13.0 for Males in accordance with the WHO Anemia Guidelines HCT 48.2 40.0 - 48.4 % 07/25/2023 11:33 PM EST [facility] MCV 104.3 82.0 - 99.5 fL 07/25/2023 11:33 PM EST [facility] MCH 37.4 27.0 - 34.0 pg 07/25/2023 11:33 PM EST [facility] MCHC 35.9 32.0 - 36.0 g/dL 07/25/2023 11:33 PM EST [facility] RDW 12.2 11.5 - 15.5 % 07/25/2023 11:33 PM EST [facility] PLT 311 140 - 400 K/uL 07/25/2023 11:33 PM EST [facility] MPV 9.9 6.6 - 11.1 fL 07/25/2023 11:33 PM EST LABORATORY C nRBCs 0 <=0 /100 WBCs 07/25/2023 11:33 PM EST [facility] Blood Venous blood specimen / Unknown Venipuncture / Unknown 07/25/2023 1:32 PM EST 07/25/2023 1:35 PM EST Mehnaz GALINDO-C LAB BLOOD ORDERABL [facility] [address] [place] [address] * TSH WITH FREE T4 IF INDICATED (07/25/2023 1:32 PM EST) TSH 3.42 0.27 - 4.20 uIU/mL 07/26/2023 5:35 AM EST [facility] Blood Venous blood specimen / Unknown Venipuncture / Unknown 07/25/2023 1:32 PM EST 07/25/2023 1:35 PM EST Mehnaz GALINDO-Isabel LAB BLOOD ORDERABL [facility] [address] [place] [address] * (ABNORMAL) COMPREHENSIVE METABOLIC PANEL (07/25/2023 1:32 PM EST) BUN 9 6 - 20 mg/dL 07/26/2023 5:12 AM EST [facility] Creatinine 1.1 0.6 - 1.2 mg/dL 07/26/2023 5:12 AM EST [facility] Estimated Glomerular Filtration Rate 78 >=60 mL/min 07/26/2023 5:12 AM EST [facility] Comment:eGFR is calculated b ased on the CKD-EPI 2020 equation Sodium 139 135 - 146 mmol/L 07/26/2023 5:12 AM EST [facility]ATORY [facility] Potassium 4.7 3.5 - 5.1 mmol/L 07/26/2023 5:12 AM EST [facility] Chloride 100 98 - 107 mmol/L 07/26/2023 5:12 AM EST [facility] CO2 25 22 - 32 mmol/L 07/26/2023 5:12 AM EST [facility] Anion Gap 14 7 - 15 mmol/L 07/26/2023 5:12 AM EST [facility] Glucose 103 70 - 120 mg/dL 07/26/2023 5:12 AM EST [facility] Albumin 4.9 3.8 - 5.0 g/dL 07/26/2023 5:12 AM EST [facility]ATORY [facility] AST 129(H) 10 - 50 U/L 07/26/2023 5:12 AM EST [facility]ATORY [facility] Alkaline Phosphatase 98 35 - 130 U/L 07/26/2023 5:12 AM EST [facility]ORY [facility] Bilirubin, Total 1.8(H) <=1.2 mg/dL 07/26/2023 5:12 AM EST [facility] Calcium 10.1 8.4 - 10.2 mg/dL 07/26/2023 5:12 AM EST [facility] Protein 7.2 6.0 - 8.3 g/dL 07/26/2023 5:12 AM EST LABORATORY [facility] ALT 164(H) 10 - 50 U/L 07/26/2023 5:12 AM EST [facility]ATORY [facility] Blood Venous blood specimen / Unknown Venipuncture / Unknown 07/25/2023 1:32 PM EST 07/25/2023 1:35 PM EST Mehnaz Stuart PA-C LAB BLOOD ORDERABL ES [facility] [address] [facility] [place] [address] * (ABNORMAL) LIPID PANEL WITH DIRECT LDL IF TG IS HIGH (07/25/2023 1:32 PM EST) Triglycerides 190(H) <=174 mg/dL 07/26/2023 5:12 AM EST LABORATORY [facility] Comment: Triglyceride Reference Ranges (mg/dL): <150 Acceptable 150-174 Borderline high 175-499 High >=500 Very high Cholesterol 276(H) <200 mg/dL 07/26/2023 5:12 AM EST [facility]ORY [facility] Comment: Total Cholesterol Reference Ranges (mg/dL): <200 Desirable 200-239 Borderline high >=240 High HDL Cholesterol 47 >39 mg/dL 5:12 AM EST LABORATORY [facility] Comment: HDL Cholesterol Reference Ranges (mg/dL): >=60 High (Desirable) <50 Low (Undesirable) For Females <40 Low (Undesirable) For Males Non-HDL Cholesterol 229(H) <=159 mg/dL 07/26/2023 5:12 AM EST LABORATORY [facility] Comment: Non-HDL Cholesterol Reference Range (mg/dL): <100 Target level for high risk ASCVD patient <130 Optimal for general population 130-159 Near optimal for general population 160-189 Borderline High 190-219 High >=220 Very High LDL Cholesterol 191(H) <=129 mg/dL 07/26/2023 5:12 AM EST LABORATORY [facility] Comment: LDL Cholesterol Reference Ranges (mg/dL): <70 Target level for high risk ASCVD patient <100 Optimal for general population 100-129 Near optimal for general population 130-159 Borderline high 160-189 High >=190 Very high Blood Venous blood specimen / Unknown Venipuncture / Unknown 07/25/2023 1:32 PM EST 07/25/2023 1:35 PM EST Mehnaz Stuart PA-C LAB BLOOD ORDERABL ES [facility] [address] [place] [address] documented in this encounter Visit Diagnoses Diagnosis Screening for cardiovascular condition Screening for other and unspecified cardiovascular conditions HTN, goal below 130/80 Unspecified essential hypertension Essential tremor Essential and other specified forms of tremor documented in this encounter
--- OUTSIDE RECORDS SUMMARY | 2023-08-17 08:29 | External Medical Summary ---
Author Name Unknown Address Unknown Organization [id number]:[facility] [place] [address] [place], [place] [address] [address] Laboratory Report Ordering Provider Test Date Status ESTRELLA JAMES 07/25/2023 13:32:13 Final Observation Date Value Abnormality Reference (Units ) Status WBC, Total 07/25/2023 13:32:13 8.65 4.00-10.8 0 (K/uL) Final RBC 07/25/2023 13:32:13 4.62 4.50-5.25 (M/uL) Final Hemoglobin 07/25/2023 13:32:13 17.3 Above high normal 1 4.0-16.8 (g/dL) Final Anemia reflex testing trigge rs on a HGB < 12.0 for Females and HGB < 13.0 for Males in accordance with the WHO Anemia Guidelines
Anemia reflex testing triggers on a HGB < 12.0 for Females and HGB < 13.0 for Males in accordance with the WHO Anemia Guidelines HCT 07/25/2023 13:32:13 48.2 40.0-48.4 (%) Final MCV 07/25/2023 13:32:13 104.3 82.0-99.5 (fL) Final MCH 07/25/2023 13:32:13 37.4 27.0-34.0 (pg) Final MCHC 07/25/2023 13:32:13 35.9 32.0-36.0 (g/dL) Final RDW 07/25/2023 13:32:13 12.2 11.5-15.5 (%) Final Platelets 07/25/2023 13:32:13 311 140-400 (K /uL) Final MPV 07/25/2023 13:32:13 9.9 6.6-11.1 ( fL) Final Nucleated erythrocytes/100 leukocytes [Ratio] in Blood by Automated count 07/25/2023 13:32:13 0 <=0 (/100 WBCs) Xenia wilcox Performing Location [facility] [place] [address] [facility] [address]
--- OUTSIDE RECORDS SUMMARY | 2023-08-17 08:29 | External Medical Summary ---
Author Name Unknown Address Unknown Organization K01:[facility] [place] [address] [facility] [address] Laboratory Report Ordering Provider Test Date Status ESTRELLA JAMES 07/25/2023 13:32:13 Final Observation Date Value Abnormality Reference (Units ) Status TSH 07/25/2023 13:32:13 3.42 0.27-4.20 (uIU/mL) Final Performing Location [facility] [place] [address] [facility] [id number]
--- OUTSIDE RECORDS SUMMARY | 2023-08-17 08:29 | External Medical Summary | Summary of Care ---
Author Name Unknown Organization [facility] Address [address] [place] [address] Phone [phone] Care Team Providers Care White Washer Name Role Phone Unavailable Primary Care Provider Unavailabl e Reason for Referral * Evaluate & Treat - Unlimited Visits (Within 10 days (routine)) - Pending Review Specialty Diagnoses / Procedures Referred By Sarah rosa Referred To Contact Neurology Diagnoses Essential tremor Mehnaz Stuart PA-C [address] [place] [address] [place] [phone] Referral ID Status Reason Start Date Expiration Date Visits Requested Visits Authorized [id number] Pending Review Specialty Services Required 07/25/2023 999 999 Question Answer Referral Priority Within 10 days (routine) Where should this appointment be scheduled? [facility] Is this referral being placed for insurance purposes ONLY No, patient needs appointment [facility] NEUROLOGY REFERRAL QUESTIONS Other Conditions Comments Tremor - ongoing for years - getting worse * Evaluate & Treat - Unlimited Visits (Within 10 days (routine)) - Pending Review Specialty Diagnoses / Procedures Referred By Sarah rosa Referred To Contact Pulmonary Diseases / Pulmonary Diagnoses Mild persistent asthma without complication Mehnaz Stuart PA-C [address] [place] [address] [place] [id number] Referral ID Status Reason Start Date Expiration Date Visits Requested Visits Authorized [id number] Pending Review Specialty Services Required 07/25/2023 999 [...] 1:00 PM EST Office Visit Family Medicine [address] [place] [phone] Mehnaz Stuart PA-C [address] [place] [address] [place] [address] HTN, goal below 130/80*; Screening for cardiovascular condition; Need for prophylactic vaccination and inoculation against influenza; Gastroesophageal reflux disease without esophagitis; Mild persistent asthma without complication; Essential tremor Allergies Active Allergy Reactions Criticality Noted Date Comments Erythromycin Seizure High 07/25/2023 documented as of this encounter (statuses as of 07/25/2023) Medications Medication Sig Dispensed Refills Start Date [...] PF, 23-24, 30MCG/0.3ML, IM, 12YRS AND ABOVE (PFIZER) - Losartan Potassium 25 MG Oral Tablet [...] - advised to call back of insurance card. Does NOT want to harm self or others Pulmonary ref The patient has been properly identified by confirmation of name and date of . documented in this encounter Plan of Treatment Upcoming Encounters Date Type Department Care Team (Late st Contact Info) Description 07/29/2023 2:40 PM EDT Office Visit Neurology [facility] [address] [place] [address] Rhona Matthews PA-C [address] [place] [address] 08/22/2023 1:00 PM EDT Office Visit Family Medicine [address] [place] [phone] Mehnaz Stuart PA-C [address] [place] [address] [place] [address] 09/09/2023 9:00 AM EDT Office Visit Pulmonary Medicine, [facility] [address] [facility] [place] [address] Bebeto Fang MD [address] [facility] [place] [address] 11/05/2023 1:00 PM EDT Office Visit Family Medicine [address] [place] [phone] Denis Gage MD [address] [place] [address] [place] [address] Pending Results Name Type Priority Associated Diagnoses [...]
--- OUTSIDE RECORDS SUMMARY | 2023-08-17 08:29 | External Medical Summary | Summary of Care ---
Author Name Unknown Organization [facility] Address [address] [place] [facility] [place] [address] Phone [phone] Care Team Providers Care Financial Sales Consultant Name Role Phone Unavailable Primary Care Provider Unavailabl e Reason for Visit * Reason Onset Date Comments Appointment 07/26/2023 US Encounter Details Date Type Department Care Team (Late st Contact Info) Description 07/26/2023 Telephone Family Medicine [address] [place] [phone] Mehnaz Stuart PA-C [address] [place] [address] [place] [address] Appointment ([place] ) Allergies Active Allergy Reactions [...] Telephone Encounter - Mehnaz Stuart PA-C - 07/29/2023 3:38 PM EDT GFR and kidney function tests were all normal. No need for renal US, at this time. * Telephone Encounter - Savita Brownlee OSA [...] Care Team (Late st Contact Info) Description 08/07/2023 12:45 PM EDT Imaging Radiology [address] [place] [address] 08/07/2023 2:40 PM EDT Office Visit Neurology [facility] [address] [place] [address] Rhona Matthews PA-C 200 [facility] [place] [address] 08/22/2023 1:00 PM EDT Office Visit Family Medicine [address] [phone] Mehnaz Stuart PA-C [address] [place] [address] [place] [address] 09/09/2023 9:00 AM EDT Office Visit Pulmonary Medicine, [facility] [address] [place] [address] Bebeto Fang MD [address] [facility] [address] 11/05/2023 1:00 PM EDT Office Visit Family Medicine [address] [phone] Denis Gage MD [address] [place] [address] [place] [address] Scheduled Orders Name Type Priority Associated Diagnoses [...] ACUTE HEPATITIS PANEL (07/25/2023 1:32 PM EST) Pathologist [facility] Hepatitis A Antibody IgM Negative Negative 07/26/2023 9:59 AM EST LABORATORY [facility] Hepatitis B Core Antibody IgM Negative Negative 07/26/2023 9:59 AM EST LAB[facility] Hepatitis B Surface Antigen Negative Negative 07/26/2023 9:59 AM EST [facility] Hepatitis C Antibody Negative Negative 07/26/2023 9:59 AM EST LAB[facility] Blood Venous blood specimen / Unknown Venipuncture / Unknown 07/25/2023 1:32 PM EST 07/25/2023 1:35 PM EST Mehnaz Stuart PA-C LAB BLOOD ORDERABL ES LAB[facility] [address] [place] [address] documented in this encounter Visit Diagnoses Diagnosis Elevated LFTs- Primary Other abnormal blood chemistry documented in this encounter
--- OUTSIDE RECORDS SUMMARY | 2023-08-17 08:29 | External Medical Summary | Summary of Care ---
Author Name Unknown Organization [facility] Address [address] [place] [place] [address] Phone [phone] Care Team Providers Care Glue Spreader Name Role Phone Unavailable Primary Care Provider Unavailabl e Reason for Visit * Reason Onset Date Comments Appointment 07/26/2023 US Encounter Details Date Type Department Care Team (Late st Contact Info) Description 07/26/2023 Telephone Family Medicine [address] [place] [phone] Mehnaz Stuart PA-C [address] [place] [address] [place] [address] Appointment ([place] ) Allergies Active Allergy Reactions Criticality Noted Date Comments Erythromycin Seizure High 07/25/2023 documented as of this encounter (statuses as of 07/30/2023) Medications Medication Sig Dispensed Refills Start Date [...] as of this encounter (statuses as of 07/30/2023) Active Problems No known active problems documented as of this encounter (statuses as of 07/30/2023) Immunizations Name Administration Dates Next Due COVID-19, [...] Description 08/07/2023 12:45 PM EDT Imaging Radiology [address] [place] [address] [place] [address] 08/07/2023 2:40 PM EDT Office Visit Neurology [facility]te[facility] [address] [place] [address] Rhona Matthews PA-C 200 [facility] [place] [address] 08/22/2023 1:00 PM EDT Office Visit Family Medicine [address] [phone] Mehnaz Stuart PA-C [address] [place] [address] [place] [address] 09/09/2023 9:00 AM EDT Office Visit Pulmonary Medicine, [facility] [address] [place] [address] Bebeto Fang MD [address] [facility] [place] [address] 11/05/2023 1:00 PM EDT Office Visit Family Medicine [address] [phone] Denis Gage MD [address] [place] [address] [place] [address] Scheduled Orders Name Type Priority Associated Diagnoses [...] HEPATITIS PANEL (07/25/2023 1:32 PM EST) Pathologist [facility] Hepatitis A Antibody IgM Negative Negative 07/26/2023 9:59 AM EST LABORATORY [facility] Hepatitis B Core Antibody IgM Negative Negative 07/26/2023 9:59 AM EST [facility] [place]atitis B Surface Antigen Negative Negative 07/26/2023 9:59 AM EST [facility] Hepatitis C Antibody Negative Negative 07/26/2023 9:59 AM EST [facility] Blood Venous blood specimen / Unknown Venipuncture / Unknown 07/25/2023 1:32 PM EST 07/25/2023 1:35 PM EST Mehnaz Stuart PA-C LAB BLOOD ORDERABL ES [facility] [address] [facility] [place] [address] documented in this encounter Visit Diagnoses Diagnosis Elevated LFTs- Primary Other abnormal blood chemistry documented in this encounter
--- OUTSIDE RECORDS SUMMARY | 2023-08-17 08:29 | External Medical Summary | Summary of Care ---
Author Name Unknown Organization [facility] Address [address] [facility] [place] [address] Phone [phone] Care Team Providers Care Cosmetology Instructor Name Role Phone Unavailable Primary Care Provider Unavailabl e Reason for Visit * Reason Comments Outpatient Testing Encounter Details Date Type Department Care Team (Late st Contact Info) Description 07/25/2023 1:40 PM EST Laboratory Laboratory [address] [place] [phone] [place] [address] Screening for cardiovascular condition; HTN, goal below [...] 07/29/2023 2:40 PM EDT Office Visit [facility] 200 [facility] [place] [address] Rhona Matthews PA-C 200 [facility] [place] [address] 08/22/2023 1:00 PM EDT Office Visit Family Medicine [address] [place] [address] [phone] Mehnaz Stuart PA-C [address] [place] [address] [place] [address] 09/09/2023 9:00 AM EDT Office Visit Pulmonary Medicine, [facility] 132 [facility] [place] [address] Bebeto Fang MD [address] [place] [address] 11/05/2023 1:00 PM EDT Office Visit Family Medicine [address] [phone] Denis Gage MD [address] [place] [address] [place] [phone] Pending Results Name Type Priority Associated Diagnoses [...] Routine Essential tremor 07/25/2023 1:32 PM EST ANEMIA CBC Lab Routine Essential tremor 07/25/2023 1:32 PM EST DIFFERENTIAL, AUTOMATED Lab Routine Essential tremor 07/25/2023 1:32 PM EST ANEMIA REFLEX CHEMISTRY HOLD Lab Routine Essential tremor 07/25/2023 1:32 PM EST Health Maintenance Due Date Last Done Comments [...] as of this encounter Visit Diagnoses Diagnosis Screening for cardiovascular condition Screening for other and unspecified cardiovascular conditions HTN, goal below 130/80 Unspecified essential hypertension Essential tremor Essential and other specified forms of tremor documented in this encounter
--- OUTSIDE RECORDS SUMMARY | 2023-08-17 08:29 | External Medical Summary | Summary of Care ---
Author Name Unknown Organization [facility] Address [address] [place] [facility] [place] [address] Phone [phone] Care Team Providers Care Metal Products Viewer Name Role Phone Unavailable Primary Care Provider Unavailabl e Reason for Visit * Reason Onset Date Comments Appointment 07/26/2023 US Encounter Details Date Type Department Care Team (Late st Contact Info) Description 07/26/2023 Telephone Family Medicine [address] [place] [phone] Mehnaz Stuart PA-C [address] [place] [address] [place] [address] Appointment ([place] ) Allergies Active Allergy Reactions [...] encounter Miscellaneous Notes * Telephone Encounter - Jessica Amaral RN - 07/30/2023 12:37 PM EDT I sent pt a my g message, VANCE Wright, so you don't schedule the appt * Telephone Encounter - Mehnaz Stuart PA-C - 07/29/2023 3:38 PM EDT GFR and kidney function tests were all normal. No need for renal US, at this time. * Telephone Encounter - Savita rBownlee OSA - 07/29/2023 11:47 AM EDT Abd [...] Description 08/07/2023 12:45 PM EDT Imaging Radiology [address] [place] [phone] 08/07/2023 2:40 PM EDT Office Visit Neurology [place] [address] [place] [address] Rhona Matthews PA-C [address] [place] [address] 08/22/2023 1:00 PM EDT Office Visit Family [address] [phone] Mehnaz Stuart PA-C [address] [place] [address] [place] [address] 09/09/2023 9:00 AM EDT Office Visit Pulmonary Medicine, [facility] 132 [facility] [place] [address] Bebeto Fang MD [address] [facility] [address] 11/05/2023 1:00 PM EDT Office Visit Family [address] [phone] Denis Gage MD [address] [place] [address] [place] [address] Scheduled Orders Name Type Priority Associated Diagnoses [...] Negative 07/26/2023 9:59 AM EST LABORATORY [facility] Blood Venous blood specimen / Unknown Venipuncture / Unknown 07/25/2023 1:32 PM EST 07/25/2023 1:35 PM EST Mehnaz Stuart PA-C LAB BLOOD ORDERABL ES LABORATORY [facility] [address] [facility] [place] [id number] documented in this encounter Visit Diagnoses Diagnosis Elevated LFTs- Primary Other abnormal blood chemistry documented in this encounter
--- OUTSIDE RECORDS SUMMARY | 2023-08-17 08:29 | External Medical Summary | Summary of Care ---
Author Name Unknown Organization [facility] Address [address] [place] [facility] [place] [address] Phone [phone] Care Team Providers Care Senior Informatica Etl Developer Name Role Phone Unavailable Primary Care Provider Unavailabl e Reason for Visit * Reason Onset Date Comments Appointment 07/26/2023 US Encounter Details Date Type Department Care Team (Late st Contact Info) Description 07/26/2023 Telephone Family Medicine [address] [place] [phone] Mehnaz Stuart PA-C [address] [place] [address] [place] [address] Appointment ([place] ) Allergies Active Allergy Reactions [...] 08/07/2023 12:45 PM EDT Imaging Radiology [address] [place] [address] 08/07/2023 2:40 PM EDT Office Visit Neurology [facility] 200 [facility] [place] [address] Rhona Matthews PA-C 200 [facility] [place] [address] 08/22/2023 1:00 PM EDT Office Visit Family Medicine [address] [place] [phone] Mehnaz Stuart PA-C [address] [place] [address] [place] [address] 09/09/2023 9:00 AM EDT Office Visit Pulmonary Medicine, [address] [place] [address] Bebeto Fang MD [address] [place] [address] 11/05/2023 1:00 PM EDT Office Visit Family Medicine [address] [place] [phone] Denis Gage MD [address] [place] [address] [place] [address] Scheduled Orders Name Type Priority Associated Diagnoses [...] 9:59 AM EST LABORATORY [facility] Hepatitis B Surface Antigen Negative Negative 07/26/2023 9:59 AM EST LAB[facility]ATORY [facility] Hepatitis C Antibody Negative Negative 07/26/2023 9:59 AM EST [facility]ORY [facility] Blood Venous blood specimen / Unknown Venipuncture / Unknown 07/25/2023 1:32 PM EST 07/25/2023 1:35 PM EST Mehnaz Stuart PA-C LAB BLOOD ORDERABL ES LAB[facility]ATORY [facility] [address] [place] [address] documented in this encounter Visit Diagnoses Diagnosis Elevated LFTs- Primary Other abnormal blood chemistry documented in this encounter
--- OUTSIDE RECORDS SUMMARY | 2023-08-17 08:29 | External Medical Summary ---
Author Name Unknown Address Unknown Organization K01:[facility] [place] [address] [place] [address] Laboratory Report Ordering Provider Test Date Status ESTRELLA JAMES 07/25/2023 13:32:13 Final Observation Date Value Abnormality Reference (Units ) Status BUN 07/25/2023 13:32:13 9 6-20 (mg/dL) Final Creatinine 07/25/2023 13:32:13 1.1 0.6-1.2 (mg/dL) Final Glomerular filtration rate/1.73 sq M.predicted [Volume Rate/Area] in Serum, Plasma or Blood by Creatinine-based formula (CKD-EPI) 07/25/2023 13:32:13 78 >=60 (mL/min) Final eGFR is calculated based on the CKD-EPI 2020 equation SODIUM 07/25/2023 13:32:13 139 135-146 (m mol/L) Final Potassium 07/25/2023 13:32:13 4.7 3.5-5.1 (m mol/L) Final Cl 07/25/2023 13:32:13 100 98-107 (mm ol/L) Final CO2 07/25/2023 13:32:13 25 22-32 (mmo l/L) Final Anion gap 07/25/2023 13:32:13 14 7-15 (mmol /L) Final Glucose 07/25/2023 13:32:13 103 70-120 (mg /dL) Final Albumin 07/25/2023 13:32:13 4.9 3.8-5.0 (g /dL) Final AST (Aspartate aminotransferase) 07/25/2023 13:32:13 129 Above high normal 10-50 (U/L) Final Alk Phos 07/25/2023 13:32:13 98 35-130 (U/ L) Final Bilirubin, Total 07/25/2023 13:32:13 1.8 Above high no rmal <=1.2 (mg/dL) Final Calcium 07/25/2023 13:32:13 10.1 8.4-10.2 ( mg/dL) Final Protein 07/25/2023 13:32:13 7.2 6.0-8.3 (g /dL) Final ALT (Alanine aminotransferase) 07/25/2023 13:32:13 164 Above high normal 10-50 (U/L) Final Performing Location LAB[facility] [place] - [address] [facility] [address]
[2023-08-17] MEDS: PIPERACILLIN/TAZOBACTAM 4.5 GM in DEXTROSE 5% MINI-B 100 ML IV SCH (10:21)
[2023-08-17] MEDS: MAGNESIUM SULFATE / D5W 1 GM/100 ML BAG IV SCH (10:21)
[2023-08-17] MEDS: PANTOprazole 40 MG in SYRINGE 0 ML IV SCH (10:22)
[2023-08-17] MEDS: HYDROmorphone INJ 0.5 MG/0.5 ML SYR IV PRN (10:23)
--- NOTE | 2023-08-17 11:25 | Gastrointestinal Consultation ---
Date of Consultation August 17, 2023 Assessment & Plan (1) Elevated LFTs: He has a number of different problems going on. With regards to his LFT's they have been abnormal for years and should be pursued as an outpatient. Most likely fatty liver but workup for CAH should be performed but first I would like to see that it wasn't done back when he was diagnosed with "fatty liver". I do not think LFT's are tied to his gallbladder in any way and I am not certain his gallbladder has anything to do with his symptoms. Will let general surgery decide about removal though. Separately he has nausea and vomiting. Normally nausea and vomiting are related to medications or some systemic issue causing these symptoms. Certainly a UTI can cause nausea and vomiting but his symptoms are more chronic than that. I do think he needs an EGD at some point to evaluate this and this can be done as an inpatient or electively as an outpatient since these symptoms have been going on for years. He is also due for colonoscopy. He had one done when he was [age] and was told her wouldn't need one done for fifteen years. Again this should be done electively. Will follow and see how his symptoms go with treatment of his UTI. History of Present Illness Reason for Consultation: nausea and vomiting, abnormal LFT's Attending Physician: Mayank Ibarra MD History of Present Illness 53 year old man with long standing problems with his GI tract. He tells me he has been vomiting for years but usually it is tolerable. Lately he has been having more issues and has lost his sense of taste. He has lost 10 pounds in between doctors visits. He has not ever seen a GI physician with his GI symptoms though. In the recent past he had an ultrasound that suggested abnormalities in the wall of his gallbladder and he was in the office seeing a surgeon yesterday when they sent him to ED because of his blood pressure and complaints of fever/rigors. He was noted to have UTI in the ED. His LFT's are abnormal and reviewing the computer his LFT's have been abnormal for about 7 years. He tells me he was "diagnosed" with fatty liver about eight years ago. He does drink about 4-6 beers three times a week or so. He is on rosuvastatin which can give gi complaints but he has not been on that for very long. CT and MRCP since he has been here do not suggest any issues with his gallbladder. Allergies Allergy/AdvReac Type Severity Reaction Status Date / Time magnesium oxide Allergy Intermediate Rash Verified 08/16/23 22:05 [From Prepopik] sodium picosulfate Allergy Intermediate Rash Verified 08/16/23 22:05 [From Prepopik] erythromycin base AdvReac Severe seizures Verified 08/16/23 22:05 Home Medications Medication Instructions Recorded Confirmed Type omeprazole 40 mg capsule,delayed 40 mg PO DAILY #90 caps 10/26/21 08/16/23 Rx release diphenhydramine HCl 25 mg capsule 25 mg PO DAILY 08/16/23 08/16/23 History (Benadryl) fluoxetine 10 mg capsule 10 mg PO DAILY 08/16/23 08/16/23 History losartan 25 mg tablet 25 mg PO DAILY 08/16/23 08/16/23 History rosuvastatin 20 mg tablet 20 mg PO DAILY 08/16/23 08/16/23 History metoprolol tartrate 100 mg tablet 100 mg PO BID 08/17/23 08/17/23 History Patient History Medical History Hx of renal failure History of. Secondary to medication reactions - kidney function has since improved to WNL GERD (gastroesophageal reflux disease) Avascular necrosis of hip Constipation Severe obstructive sleep apnea No device- "it did not help" per patient Chronic back pain Hyperlipidemia Hypertension Surgical History History of hip surgery Hx of tonsillectomy History of hand surgery right History of laminectomy lumbar Family History Mother Dementia Grandmother (Maternal) Dementia Aunt Dementia Denies family history of Colon cancer Ovarian cancer Prostate cancer Myocardial infarction Breast cancer Social History Smoking Status: Never smoker Second Hand Exposure: No; Do You Dip or Chew Tobacco: No; Hx Alcohol Use: Yes Alcohol type: beer Alcohol Intake Frequency: 4 or More x per/Week Alcohol Intake Frequency Comment: 15-25 drinks/week Hx Substance Use: No Preferred Language: [place]an Communication Ability: Effective Visual Impairment: No Limitations Hearing Ability: Normal [employer] Sports Required: No Beliefs That Will Affect Care: None marital status: Current Living Situation: Spouse current occupational status: retired Feels Safe at Home: Yes Safety Concerns: Feels Safe At This Time Childhood Exposure to Second-Hand Smoke: Yes Diet: regular Diet Comment: no diet plans caffeine: Yes during the past year weight has: decreased > 10 lbs Dental Care, Regularly: Yes Physical Activity Frequency: Does not Exercise Seatbelt Use: always Sunscreen Use: No Do you think of yourself as: straight/heterosexual Assistive Devices: Cane Review of Systems Review of Systems: All systems reviewed & are unremarkable except as noted in HPI & below Physical Exam Constitutional: WD/WN, vitals as above Neck: trachea midline, no thyromegaly Respiratory: normal respiratory effort, lungs clear to auscultation Cardiovascular: RRR, no murmur, no edema Gastrointestinal (Abdomen): normal bowel sounds, soft, nontender, no hepatosplenomegaly Musculoskeletal: Extremities: extremities normal to inspection Results & Data Vital Signs (Past 12 Hours) Vital Signs Temp Pulse Pulse Resp BP BP Pulse Ox 08/17/23 07:21 72 08/17/23 06:40 73 08/17/23 06:40 78 08/17/23 06:14 80 189/117 H 08/17/23 05:00 62 12 158/96 H 98 08/17/23 04:00 63 12 155/90 H 96 08/17/23 03:54 37.0 C 72 18 168/101 H 99 08/17/23 03:34 74 20 197/118 H 95 08/17/23 02:53 66 08/17/23 01:20 64 16 165/98 H 97 08/17/23 01:00 66 18 180/106 H 97 08/17/23 00:37 63 19 180/120 H 96 08/17/23 00:00 64 17 189/117 H 98 O2 Del Method 08/17/23 07:21 08/17/23 06:40 08/17/23 06:40 08/17/23 06:14 08/17/23 05:00 08/17/23 04:00 08/17/23 03:54 Room Air 08/17/23 03:34 08/17/23 02:53 08/17/23 01:20 Room Air 08/17/23 01:00 08/17/23 00:37 Room Air 08/17/23 00:00 Room Air Laboratory Results 08/17/23 08/16/23 08/16/23 Range/Units 07:09 21:51 17:40 WBC 7.90 13.21 H (4.8-10.8) K/ul RBC 4.32 L 5.22 (4.70-6.10) M/uL Hgb 15.3 D 18.4 H (14.0-18.0) g/dl Hct 40.9 L 49.4 (42.0-52.0) % MCV 94.7 94.6 (80.0-100.0) fL MCH 35.4 H 35.2 H (25.0-34.0) pg MCHC 37.4 H 37.2 H (32.0-36.0) g/dL RDW Std Deviation 41.6 41.1 (36.4-46.3) fL RDW Coeff of Mona 12.0 11.9 (11.5-14.5) % Plt Count 213 327 (130-400) K/uL MPV 9.9 10.1 (9.4-12.4) fL Immature Gran % (Auto) 0.4 0.5 % Neut % (Auto) 61.5 83.9 % Lymph % (Auto) 24.8 6.2 % [place] % (Auto) 11.8 7.6 % Eos % (Auto) 0.6 1.0 % Baso % (Auto) 0.9 0.8 % Neut # (Auto) 4.86 11.10 H (1.40-6.50) K/uL Lymph # (Auto) 1.96 0.82 L (1.20-3.40) K/uL [place] # (Auto) 0.93 H 1.00 H (0.11-0.59) K/uL Eos # (Auto) 0.05 0.13 (0.00-0.50) K/uL Baso # (Auto) 0.07 0.10 (0.00-0.20) K/uL Immature Gran # (Auto) 0.03 0.06 (0.01-0.20) K/uL Sodium 135 L 135 L (136-145) mmol/L Potassium 3.3 L 4.0 (3.5-5.1) mmol/L Chloride 98 95 L (98-107) mmol/L Carbon Dioxide 25 24 (21-32) mmol/L Anion Gap 12 H 16 H (3-11) BUN 15 11 (6-23) mg/dl Creatinine 1.31 1.35 (0.6-1.4) mg/dl Est Cr Clr Drug Dosing 71.7 69.6 ml/min Est GFR ( Amer) 70.5 68.0 ml/min Est GFR (Non-Af Amer) 60.9 58.7 ml/min BUN/Creatinine Ratio 11.5 8.1 L (10-20) Glucose 99 141 H (70-99(Fasting)) mg/dl Calcium 9.2 11.0 H (8.6-10.3) mg/dl Magnesium 1.2 L (1.7-2.4) mg/dl Total Bilirubin 1.8 H 2.2 H (0.2-1.0) mg/dl Direct Bilirubin 0.5 H (0-0.2) mg/dl AST 44 H 57 H (13-39) U/L ALT 55 H 78 H (7-52) U/L Alkaline Phosphatase 62 87 (34-104) U/L Troponin I High Sens 16.6 17.6 (0-20) pg/ml Total Protein 6.6 D 8.6 H (6.0-8.3) gm/dl Albumin 4.1 5.4 H (3.4-5.0) gm/dl Globulin 3.2 (2.5-4.0) gm/dl Albumin/Globulin Ratio 1.7 (0.9-2) Lipase 26 29 (11-82) U/L Urine Color [place] Urine Appearance Clear (Clear) Urine pH 5.5 (4.5-7.5) Ur Specific [place] > 1.045 H (1.000-1.030) Urine Protein 3+ H (Negative) Urine Glucose (UA) Negative (Negative) Urine Ketones Trace H (Negative) Urine Blood Negative (Negative) Urine Nitrite Positive A (Negative) Urine Bilirubin 2+ H (Negative) Urine Urobilinogen Negative (Negative) Ur Leukocyte Esterase Trace H (Negative) Urine WBC (Auto) 10-30 H (0-5) /hpf Urine RBC (Auto) 0-4 (0-4) /hpf U Hyaline Cast (Auto) 10-30 H (0-5) /lpf U Epithel Cells (Auto) >30 H (0-5) /lpf Urine Bacteria (Auto) Negative (Negative) Diagnostic Findings Chest X-Ray 08/16/23 16:54 XR chest 1V not portable HISTORY: Chest pain, nonspecific COMPARISON: Chest 12/07/2020. FINDINGS: The lungs are clear. Cardiac silhouette is normal in size. No pleural effusions. No pneumothorax. IMPRESSION: No acute process. ACT 112: Negative or not required by law. Electronically signed by: Darron Zamarripa M.D. 08/16/2023 5:36 PM Abdomen/Pelvis CT 08/16/23 20:51 Exam(s): CT ABDOMEN + PELVIS With Contrast IV Amt: OPTIRAY 320 92ML EXAM: CT Abdomen and Pelvis With Intravenous Contrast CLINICAL HISTORY: Reason for exam: RUQ abd pain, elevated lfts, fevers, chills. TECHNIQUE: Axial computed tomography images of the abdomen and pelvis with intravenous contrast. CTDI is 26.29 mGy and DLP is 1237.92 mGy-cm. Automated exposure control was utilized for the study. A dose lowering technique was utilized adhering to the principles of ALARA. CONTRAST: Patient received OPTIRAY 320 92ML of IV contrast COMPARISON: CT abdomen/pelvis on 11/25/2020 FINDINGS: Lung bases: Small calcified granuloma at the right lung base. No consolidation. ABDOMEN: Liver: Hepatic steatosis. Gallbladder and bile ducts: Unremarkable. No calcified stones. No ductal dilation. Pancreas: Unremarkable. No mass. No ductal dilation. Spleen: Unremarkable. No splenomegaly. Adrenals: Unremarkable. No mass. Kidneys and ureters: Small left renal cyst. No hydronephrosis or obstructing stone. Stomach and bowel: Evaluation of the stomach is limited by underdistention. No mucosal thickening. No bowel obstruction or inflammation. PELVIS: Appendix: Normal appendix. Bladder: Bladder wall thickening with surrounding fat stranding, concerning for cystitis. Please correlate with urinalysis. Reproductive: Unremarkable as visualized. ABDOMEN and PELVIS: Intraperitoneal space: Unremarkable. No free air. No significant fluid collection. Bones/joints: Degenerative changes of the spine. 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 No acute fracture. No dislocation. Soft tissues: Unremarkable. Vasculature: Minimal atherosclerotic changes of the vasculature. No aortic aneurysm or dissection. Lymph nodes: Unremarkable. No enlarged lymph nodes. IMPRESSION: Bladder wall thickening with surrounding fat stranding, concerning for cystitis. Please correlate with urinalysis. Electronically signed by: Valerie Adan M.D. 08/16/23 22:36 PM Cholangiopancreatography MRI 08/17/23 02:57 Exam(s): MRI MRCP EXAM: MR Abdomen Without Intravenous Contrast, MRCP Protocol CLINICAL HISTORY: Reason for exam: n/v, elevated lft, cholecystitis?. TECHNIQUE: Multiplanar magnetic resonance images of the abdomen without intravenous contrast using MRCP protocol. COMPARISON: No relevant prior studies available. FINDINGS: Bile ducts: Unremarkable. CBD caliber measures 5 mm in diameter no evidence of choledocholithiasis. No stones. No ductal dilation. Gallbladder: Unremarkable. No stones. Liver: No focal hepatic lesion identified. IMPRESSION: No evidence of pancreatic or biliary ductal obstruction Electronically signed by: Bijan Marquez MD 08/17/23 06:35 AM
[2023-08-17] MEDS: POTASSIUM CHLORIDE / WTR 10 MEQ/100 ML PLCT IV SCH (12:05)
[2023-08-17] MEDS: THIAMINE HCL 100 MG in SYRINGE 9 ML IV SCH (12:15)
[2023-08-17] MEDS: FOLIC ACID 1 MG in SYRINGE 9.8 ML IV SCH (12:15)
[2023-08-17] MEDS: POTASSIUM CHLORIDE CRTAB 20 MEQ TABCR PO STA (18:30)
[2023-08-17] MEDS: ONDANSETRON INJ 2 MG/ML 2 ML VIAL IV PRN (21:25)
--- NOTE | 2023-08-18 05:47 | Surgery Progress Note ---
Date of Service August 18, 2023 Assessment & Plan (1) Elevated LFTs: Plan: The patient has been admitted on the hospitalist service. From surgery perspective we recommend the following: Continue analgesics as needed Continue antiemetics as needed Keep n.p.o. for the present time Antibiotics in the form of Zosyn have been initiated which should continue Patient underwent MRCP on 08/17/2023. This study showed no dilatation of the common bile duct and no evidence of choledocholithiasis. There is no evidence of gallstones in his gallbladder was unremarkable Check a.m. labs when available Gastroenterology consultation was obtained and was not felt that the elevation of patient's LFTs were related to his gallbladder. There is also consideration that the patient's symptomatology was not related to his gallbladder. GI is recommended the patient should undergo an EGD at some point which may help ascertain the cause of his abdominal pain Admission and Anticipated Discharge Date Admission Date: August 17, 2023 Supervising Physician Co-Signing Physician Notes I have seen and examined this patient. I agree with the above assessment. No acute surgical intervention for the gallbladder at this time as patient symptoms are slowly improving. He does tell me that he had some nausea after li quids yesterday which was successfully treated with medication. He may try a clear liquid tray today and be made n.p.o. after midnight in case surgical intervention for the gallbladder is determined beneficial by tomorrow. As of now the patient is being treated for cystitis with IV antibiotics which will also help treat a potential underlying biliary insult if truly present. Blood cultures are negative and no clinical evidence for gangrenous gallbladder thus no acute surgical intervention. Again outpatient ultrasound revealing ascites noted. No evidence of gallbladder stones on that imaging or any of the workup imaging performed in the ED. I explained to the patient he may benefit from additional workup such as a HIDA scan. This may be planned for tomorrow at the same time the patient has at other primary medical issues that it has been beneficial to have addressed prior to surgery. LFT derangement according to the patient is chronic, he also has evidence for hepatic steatosis which could mimic these symptoms. GI is onboard. This will be updated with Dr. Dyson in the a.m. who was his outpatient consulting surgeon and referral source to the emergency department for this v isit. Further plan from there. Subjective Patient is resting comfortably in bed. He denies any fevers, shakes, or chills. Currently denies any nausea or vomiting. He does note some minimal right upper quadrant pain with palpation Physical Exam Gastrointestinal (Abdomen): Abdomen is soft and nondistended. There is no rebound tenderness or guarding. Patient did have some slight tenderness to palpation in the right upper quadrant. Results & Data Vital Signs (Past 12 Hours) Vital Signs Temp Pulse Pulse Resp BP BP Pulse Ox 08/18/23 02:18 36.8 C 57 L 18 158/97 H 95 08/17/23 23:33 57 L 08/17/23 23:00 58 L 08/17/23 23:00 36.9 C 69 22 159/96 H 95 08/17/23 20:30 64 18 166/105 H 08/17/23 19:57 36.8 C 68 18 200/117 H 98 08/17/23 19:55 65 08/17/23 18:30 70 188/107 H O2 Del Method 08/18/23 02:18 Room Air 08/17/23 23:33 08/17/23 23:00 08/17/23 23:00 Room Air 08/17/23 20:30 08/17/23 19:57 Room Air 08/17/23 19:55 08/17/23 18:30 PG Care Time/CCT Total # of Minutes Spent Total Time Spent with Patient: Total time spent is greater than 50% in coordination of care (as documented) at patient's floor/unit and/or counseling patient: Coding Level of Care Code 31548 SUB INP/OBS CARE 25MIN Diagnoses Elevated LFTs R79.89
--- NOTE | 2023-08-18 07:46 | Hospitalist Progress Note ---
Date of Service August 18, 2023 Assessment & Plan (1) Elevated LFTs: Plan: 53-year-old male with past medical significant for hypertension, hyperlipidemia, depression, GERD . VALERY presents nausea vomiting and abdominal discomfort. Was not able to take his blood pressure medications because of nausea/vomitings and blood pressure running high. He was also having chills rigors sweating and shaky. Denies any chest pain. Currently no shortness of breath. States he has chronic cough and he had bronchoscopy in the past and was found to have some infection and supposedly repeat bronchoscopy but was not done. States has asthma but does not use inhalers. Denies any headache. No dizziness. No blurred vision. Normal bowel and bladder movements. Recently had a gallbladder ultrasound which showed adenomyomatosis and supposed to see surgery. Elevated LFTs n/v ROQ abdominal pain MRCP - No evidence of pancreatic or biliary ductal obstruction iv Zosyn iv Dilaudid prn, npo, iv fluids antiemetics prn follow repeat labs GI and Surgery consulted Discussed with surgery - pt may need cholecystectomy - keep NPO after MN. [facility] surgery to assume care tmrw GI - likely plan for EGD, keep NPO after MN. LFTs elevated seem to be chronic, perhaps d/t fatty liver HTN urgency not able to take po meds on admission placed on iv Lopressor. restart po Lopressor as soon as possible. cont. losartan iv hydralazine prn follow repeat troponin and echo BP still elevated, given extra dose of losartan and hydralazine Switched iV lopressor to PO Alcoholism patient he says drinks 4 beers every 2-3 days patient doesn't think he will go through withdrawal. says he can go without drinking for few days will do iv thiamine and iv folic acid iv ativan prn close monitor. VALERY says not using cpap says he is sleeping fine will monitor Hyperlipidemia on Crestor GERD ppi Depression on fluoxetine DVt px scds Disposition med/tele Full code. Admission and Anticipated Discharge Date Admission Date: August 17, 2023 Subjective Pt seen in follow up of abd. pain, n/v , elev. LFTs - poss. cholecystitis, also found to have UTI, abx started on admission Surgery and GI consulted Continues to have pain in RUQ, however generally abdomen otherwise feels better. Continues to have flank pain - says that he gets back pain in that are on and off. No chest pain shortness of breath. No fevers chills however says occasionally he does get warm. Discussed with surgery, for now we will keep patient n.p.o. after midnight, and [facility] surgical team will take over tmrw. Patient still may need cholecystectomy. Per GI, patient may have EGD tomorrow. BP elevated Update: Informed late afternoon, patient had a short episode of arrhythmia reported on telemetry, poss. vt?. Per RN, she has just given IV metoprolol which was ordered initially on admission when patient was NPO. Patient reported palpitation for about 5 to 6 seconds long, however then resolved right away. Will obtain ECG, will obtain echocardiogram. BMP ordered, and will replace electrolytes as needed. metoprolol switched to PO form. Review of Systems Review of Systems: All systems reviewed & are unremarkable except as noted in Subjective Physical Exam Physical Exam: General- WD/WN M in NAD Head- atraumatic Eyes- PERRL. ENT- oropharynx clear Neck- supple, no JVD. Lungs- clear to auscultation no wheezing or crackles Heart- regular rhythm; no murmur, no gallop. Abdomen- normal bowel sounds, soft, + RUQ tenderness no distension Extremities- no pretibial edema, no erythema. moves extremities Neuro- alert, oriented PERRL, no facial palsy; no dysarthria; Results & Data Results & Data Vital Signs (Past 12 Hours) Vital Signs Temp Pulse Pulse Resp BP Pulse Ox O2 Del Method 08/18/23 06:21 58 L 08/18/23 02:18 36.8 C 57 L 18 158/97 H 95 Room Air 08/17/23 23:33 57 L 08/17/23 23:00 58 L 08/17/23 23:00 36.9 C 69 22 159/96 H 95 Room Air 08/17/23 20:30 64 18 166/105 H 08/17/23 19:57 36.8 C 68 18 200/117 H 98 Room Air 08/17/23 19:55 65 Laboratory Results 08/17/23 08/17/23 Range/Units 11:25 07:09 WBC 7.90 (4.8-10.8) K/ul RBC 4.32 L (4.70-6.10) M/uL Hgb 15.3 D (14.0-18.0) g/dl Hct 40.9 L (42.0-52.0) % MCV 94.7 (80.0-100.0) fL MCH 35.4 H (25.0-34.0) pg MCHC 37.4 H (32.0-36.0) g/dL RDW Std Deviation 41.6 (36.4-46.3) fL RDW Coeff of Mona 12.0 (11.5-14.5) % Plt Count 213 (130-400) K/uL MPV 9.9 (9.4-12.4) fL Immature Gran % (Auto) 0.4 % Neut % (Auto) 61.5 % Lymph % (Auto) 24.8 % [place] % (Auto) 11.8 % Eos % (Auto) 0.6 % Baso % (Auto) 0.9 % Neut # (Auto) 4.86 (1.40-6.50) K/uL Lymph # (Auto) 1.96 (1.20-3.40) K/uL [place] # (Auto) 0.93 H (0.11-0.59) K/uL Eos # (Auto) 0.05 (0.00-0.50) K/uL Baso # (Auto) 0.07 (0.00-0.20) K/uL Immature Gran # (Auto) 0.03 (0.01-0.20) K/uL Sodium 135 L (136-145) mmol/L Potassium 3.3 L (3.5-5.1) mmol/L Chloride 98 (98-107) mmol/L Carbon Dioxide 25 (21-32) mmol/L Anion Gap 12 H (3-11) BUN 15 (6-23) mg/dl Creatinine 1.31 (0.6-1.4) mg/dl Est Cr Clr Drug Dosing 71.7 ml/min Est GFR ( Amer) 70.5 ml/min Est GFR (Non-Af Amer) 60.9 ml/min BUN/Creatinine Ratio 11.5 (10-20) Glucose 99 (70-99(Fasting)) mg/dl Calcium 9.2 (8.6-10.3) mg/dl Magnesium 1.2 L (1.7-2.4) mg/dl Total Bilirubin 1.8 H (0.2-1.0) mg/dl Direct Bilirubin 0.5 H (0-0.2) mg/dl AST 44 H (13-39) U/L ALT 55 H (7-52) U/L Alkaline Phosphatase 62 (34-104) U/L Troponin I High Sens 14.5 16.6 (0-20) pg/ml Total Protein 6.6 D (6.0-8.3) gm/dl Albumin 4.1 (3.4-5.0) gm/dl Lipase 26 (11-82) U/L Medications Administered Current Inpatient Medications Fluoxetine HCl (Fluoxetine Hcl 10 Mg Cap) 10 mg PO DAILY [facility] Stop: 09/16/23 08:59 Last Admin: 08/17/23 08:02 Dose: 10 mg Hydralazine HCl (Hydralazine Hcl 20 Mg/Ml Vial) 7.5 mg IV Q6H PRN PRN Reason: Hypertension Stop: 09/16/23 03:32 Hydromorphone HCl (Hydromorphone Inj 0.5 Mg/0.5 Ml Syr) 0.5 mg IV Q4H PRN PRN Reason: Mod-Sev Pain (Scale 4-10) Stop: 08/31/23 03:32 Last Admin: 08/17/23 20:40 Dose: 0.5 mg Sodium Chloride (Nss) 1,000 mls @ 125 mls/hr IV .Q8H [facility] Stop: 09/16/23 03:32 Last Admin: 08/18/23 02:15 Dose: 125 mls/hr Pantoprazole Sodium 40 mg/ (Syringe) 10 mls @ 5 mls/min IV DAILY@1100 [facility] Stop: 09/16/23 10:59 Last Admin: 08/17/23 10:22 Dose: 5 mls/min Piperacillin Sod/Tazobactam (Sod 4.5 gm/ Dextrose) 100 mls @ 25 mls/hr IV Q8H [facility]; Protocol Stop: 08/27/23 09:59 Last Infusion: 08/18/23 06:09 Dose: Infused Thiamine HCl 100 mg/ Syringe 10 mls @ 2 mls/min IV QAM [facility] Stop: 09/16/23 11:59 Last Admin: 08/17/23 12:15 Dose: 2 mls/min Folic Acid 1 mg/ Syringe 10 mls @ 5 mls/min IV QAM TORRI Stop: 09/16/23 11:59 Last Admin: 08/17/23 12:15 Dose: 5 mls/min Lorazepam 1 mg/ Syringe 1 mls @ 2 mls/min IV Q4H PRN PRN Reason: Anxiety/Agitation Stop: 09/16/23 03:32 Losartan Potassium (Losartan Potassium 25 Mg Tab) 25 mg PO DAILY [facility] Stop: 09/16/23 08:59 Last Admin: 08/17/23 08:03 Dose: 25 mg Metoprolol Tartrate (Metoprolol Tartrate 1 Mg/Ml Vial) 5 mg IV Q6 [facility] Stop: 09/16/23 05:59 Last Admin: 08/18/23 06:21 Dose: Not Given Nitroglycerin (Nitroglycerin Sl 0.4 Mg/Tab Tab) 0.4 mg SL Q5M PRN PRN Reason: Chest Pain Stop: 09/16/23 03:32 Ondansetron HCl (Ondansetron Inj 2 Mg/Ml 2 Ml Vial) 4 mg IV Q6H PRN PRN Reason: Nausea Stop: 09/16/23 03:32 Last Admin: 08/17/23 21:25 Dose: 4 mg Rosuvastatin Calcium (Rosuvastatin Calcium 20 Mg Tab) 20 mg PO DAILY [facility] Stop: 09/16/23 08:59 Last Admin: 08/17/23 08:03 Dose: 20 mg
[2023-08-18 08:08] LABS: Hematocrit (blood only) 38.1 % (42.0-52.0); Hemoglobin 13.5 g/dl (14.0-18.0); Mean Corpuscular Hemoglobin 35.1 pg (25.0-34.0); Mean Corpuscular Hgb Conc 35.4 g/dL (32.0-36.0); Mean Platelet Volume 9.9 fL (9.4-12.4); Platelet Count 160 K/uL (130-400); RDW Coefficient of Variation 12.2 % (11.5-14.5); RDW Standard Deviation 44.4 fL (36.4-46.3); Red Blood Count 3.85 M/uL (4.70-6.10); White Blood Count 5.84 K/ul (4.8-10.8)
[2023-08-18 08:36] LABS: Albumin Globulin Ratio 1.9 (0.9-2); Albumin Level 3.9 gm/dl (3.4-5.0); BUN Creatinine Ratio 9.6 (10-20); Bilirubin,Total 2.2 mg/dl (0.2-1.0); Calcium 8.5 mg/dl (8.6-10.3); Creatinine Clr Calc Pharmacy 91.6 ml/min; Est GFR (African American) 93.2 ml/min; Est GFR (Non-African American) 80.5 ml/min; Globulin 2.1 gm/dl (2.5-4.0); Magnesium 1.6 mg/dl (1.7-2.4); Phosphorus 3.4 mg/dl (2.5-4.9); Potassium 3.9 mmol/L (3.5-5.1)
[2023-08-18] MEDS: hydrALAZINE HCL 20 MG/ML VIAL IV PRN (08:38)
--- NOTE | 2023-08-18 09:30 | Gastroenterology Progress Note ---
Date of Service August 18, 2023 Assessment & Plan (1) Vomiting: Plan: He asked about going home which I am good with as long as he would see GI as an outpatient for EGD. However he tells me his BP is still not under control. If he is here tomorrow, which I suspect he will be we will do EGD then. He is more comfortable with that. I explained that I suspected it will be normal but it would be good to rule things out. Admission and Anticipated Discharge Date Admission Date: August 17, 2023 Subjective Feeling better today. Had one episode of nausea yesterday after supper. Doesn't complain much of pain Physical Exam Physical Exam: He looks well Constitutional: WD/WN, vitals as above Results & Data Vital Signs (Past 12 Hours) Vital Signs Temp Pulse Pulse Resp BP Pulse Ox O2 Del Method 08/18/23 07:59 36.8 C 60 18 188/112 H 97 Room Air 08/18/23 07:00 55 L 08/18/23 06:21 58 L 08/18/23 02:18 36.8 C 57 L 18 158/97 H 95 Room Air 08/17/23 23:33 57 L 08/17/23 23:00 58 L 08/17/23 23:00 36.9 C 69 22 159/96 H 95 Room Air
[2023-08-18] MEDS: LOSARTAN POTASSIUM 25 MG TAB PO SCH (10:21)
[2023-08-18] MEDS: MAGNESIUM SULFATE / D5W 1 GM/100 ML BAG IV ONE (12:54)
[2023-08-18] MEDS: hydrALAZINE HCL 25 MG TAB PO STA (14:53)
[2023-08-18] MEDS: DICLOFENAC SOD 1% GEL 100 GM TUBE EXT SCH (14:53)
[2023-08-18] MEDS ORDERED: METOPROLOL TARTRATE 1 MG/ML VIAL IV PRN (18:30)
[2023-08-18 19:41] LABS: BUN Creatinine Ratio 6.9 (10-20); Calcium 8.9 mg/dl (8.6-10.3); Creatinine Clr Calc Pharmacy 93.4 ml/min; Est GFR (African American) 95.5 ml/min; Est GFR (Non-African American) 82.4 ml/min; Magnesium 1.7 mg/dl (1.7-2.4); Phosphorus 2.4 mg/dl (2.5-4.9); Potassium 3.6 mmol/L (3.5-5.1)
[2023-08-18] MEDS: METOPROLOL TARTRATE 25 MG TAB PO SCH (19:52)
[2023-08-19 06:09] LABS: Hematocrit (blood only) 37.2 % (42.0-52.0); Hemoglobin 13.9 g/dl (14.0-18.0); Mean Corpuscular Hemoglobin 35.8 pg (25.0-34.0); Mean Corpuscular Hgb Conc 37.4 g/dL (32.0-36.0); Mean Corpuscular Volume 95.9 fL (80.0-100.0); Mean Platelet Volume 9.6 fL (9.4-12.4); Platelet Count 171 K/uL (130-400); RDW Coefficient of Variation 12.2 % (11.5-14.5); RDW Standard Deviation 42.2 fL (36.4-46.3); Red Blood Count 3.88 M/uL (4.70-6.10); White Blood Count 8.29 K/ul (4.8-10.8)
[2023-08-19 06:23] LABS: Albumin Level 3.9 gm/dl (3.4-5.0); Bilirubin,Total 2.2 mg/dl (0.2-1.0); Calcium 8.8 mg/dl (8.6-10.3); Magnesium 1.7 mg/dl (1.7-2.4); Potassium 3.6 mmol/L (3.5-5.1)
[2023-08-19 06:29] LABS: BUN Creatinine Ratio 5.5 (10-20); Creatinine Clr Calc Pharmacy 104.7 ml/min; Est GFR (African American) 109.6 ml/min; Est GFR (Non-African American) 94.5 ml/min; Phosphorus 2.9 mg/dl (2.5-4.9); Total Protein 5.9 gm/dl (6.0-8.3)
[2023-08-19] MEDS ORDERED: POTASSIUM PHOS 3 MMOL/1 ML INFUSION IV STA (07:20)
[2023-08-19] MEDS: MAGNESIUM SULFATE / D5W 1 GM/100 ML BAG IV ONE (08:15)
[2023-08-19] MEDS: POTASSIUM PHOSPHATE 9 MMOL in SODIUM CHLORIDE 0.9% 250 ML IV ONE (08:38)
[2023-08-19] MEDS: LOSARTAN POTASSIUM 50 MG TAB PO SCH (09:20)
--- NOTE | 2023-08-19 09:55 | Anesthesiology Consultation ---
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 Pascual Garner Jr, MD Height/Weight Height: 5 ft 10 in Weight: 92.261 kg Allergies Allergy/AdvReac Type Severity Reaction Status Date / Time magnesium oxide Allergy Intermediate Rash Verified 08/16/23 22:05 [From Prepopik] sodium picosulfate Allergy Intermediate Rash Verified 08/16/23 22:05 [From Prepopik] erythromycin base AdvReac Severe seizures Verified 08/16/23 22:05 Medications Home Medications Medication Instructions Recorded Confirmed Last Taken omeprazole 40 mg capsule,delayed 40 mg PO DAILY #90 caps 10/26/21 08/16/23 08/16/23 release diphenhydramine HCl 25 mg capsule 25 mg PO DAILY 08/16/23 08/16/23 08/16/23 (Benadryl) fluoxetine 10 mg capsule 10 mg PO DAILY 08/16/23 08/16/23 08/16/23 losartan 25 mg tablet 25 mg PO DAILY 08/16/23 08/16/23 08/16/23 rosuvastatin 20 mg tablet 20 mg PO DAILY 08/16/23 08/16/23 08/16/23 metoprolol tartrate 100 mg tablet 100 mg PO BID 08/17/23 08/17/23 Unknown Active Medications Generic Name Dose Route Start Last Admin Trade Name Freq PRN Reason Stop Dose Admin Diclofenac Sodium 2 gm 08/18/23 14:25 08/19/23 08:16 Diclofenac Sod 1% Gel 100 Gm Tube EXT 09/17/23 14:24 2 gm BID TORRI Administration Protocol Fluoxetine HCl 10 mg 08/17/23 09:00 08/19/23 08:16 Fluoxetine Hcl 10 Mg Cap PO 09/16/23 08:59 10 mg DAILY TORRI Administration Hydralazine HCl 7.5 mg 08/17/23 03:33 08/18/23 22:14 Hydralazine Hcl 20 Mg/Ml Vial IV 09/16/23 03:32 7.5 mg Q6H PRN Administration Hypertension Hydromorphone HCl 0.5 mg 08/17/23 03:33 08/18/23 21:34 Hydromorphone Inj 0.5 Mg/0.5 Ml Syr IV 08/31/23 03:32 0.5 mg Q4H PRN Administration Mod-Sev Pain (Scale 4-10) Sodium Chloride 1,000 mls @ 80 mls/hr 08/17/23 03:33 08/18/23 18:46 Nss IV 09/16/23 03:32 Infused .[id number] TORRI Infusion Pantoprazole Sodium 40 mg/ 10 mls @ 5 mls/min 08/17/23 11:00 08/18/23 10:21 Syringe IV 09/16/23 10:59 5 mls/min DAILY@1100 TORRI Administration Piperacillin Sod/Tazobactam 100 mls @ 25 mls/hr 08/17/23 10:00 08/19/23 06:26 Sod 4.5 gm/ Dextrose IV 08/27/23 09:59 Infused Q8H TORRI Infusion Protocol Thiamine HCl 100 mg/ Syringe 10 mls @ 2 mls/min 08/17/23 12:00 08/19/23 08:17 IV 09/16/23 11:59 2 mls/min QAM TORRI Administration Folic Acid 1 mg/ Syringe 10 mls @ 5 mls/min 08/17/23 12:00 08/19/23 08:17 IV 09/16/23 11:59 5 mls/min QAM TORRI Administration Potassium Phosphate 9 mmol/ 253 mls @ 88 mls/hr 08/19/23 07:30 08/19/23 08:38 Sodium Chloride IV 08/19/23 10:22 88 mls/hr ONE ONE Administration Losartan Potassium 50 mg 08/19/23 09:00 08/19/23 09:20 Losartan Potassium 50 Mg Tab PO 09/18/23 08:59 50 mg DAILY TORRI Administration Metoprolol Tartrate 25 mg 08/18/23 21:00 08/19/23 08:19 Metoprolol Tartrate 25 Mg Tab PO 09/17/23 20:59 25 mg BID TORRI Administration Ondansetron HCl 4 mg 08/17/23 03:33 08/17/23 21:25 Ondansetron Inj 2 Mg/Ml 2 Ml Vial IV 09/16/23 03:32 4 mg Q6H PRN Administration Nausea Rosuvastatin Calcium 20 mg 08/17/23 09:00 08/19/23 08:17 Rosuvastatin Calcium 20 Mg Tab PO 09/16/23 08:59 20 mg DAILY TORRI Administration Past Medical History Medical History Hx of renal failure History of. Secondary to medication reactions - kidney function has since improved to WNL GERD (gastroesophageal reflux disease) Avascular necrosis of hip Constipation Severe obstructive sleep apnea No device- "it did not help" per patient Chronic back pain Hyperlipidemia Hypertension Past Family History Family History Mother Dementia Grandmother (Maternal) Dementia Aunt Dementia Denies family history of Colon cancer Ovarian cancer Prostate cancer Myocardial infarction Breast cancer Past Surgical History Surgical History History of hip surgery Hx of tonsillectomy History of hand surgery right History of laminectomy lumbar Social History Smoking Status: Never smoker Do You Dip or Chew Tobacco: No Hx Alcohol Use: Yes Alcohol type: beer alcohol intake frequency: a few times a week Hx Substance Use: No substance use type: does not use Last Used Substance: Days (ago) Physical Exam Vital Signs Last Vital Signs Temp 36.8 C 08/19/23 02:29 Pulse 85 08/19/23 02:29 Resp 16 08/19/23 02:29 BP 169/103 H 08/19/23 02:29 Pulse Ox 97 08/19/23 02:29 O2 Del Method Room Air 08/19/23 02:29 Testing Laboratory Results 08/19/23 05:53 08/19/23 05:53 Urine Color [place] 08/16/23 21:51 Urine Appearance Clear (Clear) 08/16/23 21:51 Urine pH 5.5 (4.5-7.5) 08/16/23 21:51 Ur Specific [place] > 1.045 (1.000-1.030) H 08/16/23 21:51 Urine Protein 3+ (Negative) H 08/16/23 21:51 Urine Glucose (UA) Negative (Negative) 08/16/23 21:51 Urine Ketones Trace (Negative) H 08/16/23 21:51 Urine Nitrite Positive (Negative) A 08/16/23 21:51 Ur Leukocyte Esterase Trace (Negative) H 08/16/23 21:51 Urine WBC (Auto) 10-30 /hpf (0-5) H 08/16/23 21:51 Urine RBC (Auto) 0-4 /hpf (0-4) 08/16/23 21:51 U Hyaline Cast (Auto) 10-30 /lpf (0-5) H 08/16/23 21:51 U Epithel Cells (Auto) >30 /lpf (0-5) H 08/16/23 21:51 Urine Bacteria (Auto) Negative (Negative) 08/16/23 21:51 08/16/23 21:51 Urine Culture - Final Urine,Clean Catch Alpha strep. not enterococcus 08/17/23 17:06 Aerobic Blood Culture - Preliminary Blood No growth in Aerobic bottle after 24 hours. Anaerobic Blood Culture - Preliminary No growth in Anaerobic bottle after 24 hours. 08/17/23 17:07 Aerobic Blood Culture - Preliminary Blood No growth in Aerobic bottle after 24 hours. Anaerobic Blood Culture - Preliminary No growth in Anaerobic bottle after 24 hours. Electrocardiogram Date: 08/18/23 Normal sinus rhythm T wave abnormality, consider inferolateral ischemia Prolonged QT Abnormal ECG When compared with ECG of 16-AUG-2023 17:17, (unconfirmed) No significant change was found 25mm/s10mm/[id number] 241CID: 7Referred by: Mehnaz Stuart Unconfirmed Vent. rate 85 BPM PA interval 152 ms QRS duration 86 ms QT/QTc 400/476 ms Chest X-Ray Date: 08/16/23 XR chest 1V not portable HISTORY: Chest pain, nonspecific COMPARISON: Chest 12/07/2020. FINDINGS: The lungs are clear. Cardiac silhouette is normal in size. No pleural effusions. No pneumothorax. IMPRESSION: No acute process Echocardiogram Date: 02/01/21 EF: 55-60 LV Function: normal RWMA: + none Valvular Disease: + AI (trace) and + MR (mild)
--- NOTE | 2023-08-19 10:51 | Hospitalist Progress Note ---
Date of Service August 19, 2023 Assessment & Plan (1) Elevated LFTs: Plan: 53 yo M with hypertension, hyperlipidemia, depression, GERD . VALERY presents nausea vomiting and abdominal discomfort. Was not able to take his blood pressure medications because of nausea/vomiting and blood pressure running high. He was also having chills rigors sweating and shaky. Denies any chest pain. Currently no shortness of breath. States he has chronic cough and he had bron choscopy in the past and was found to have some infection and supposedly repeat bronchoscopy but was not done. States has asthma but does not use inhalers. Denies any headache. No dizziness. No blurred vision. Normal bowel and bladder movements. Recently had a gallbladder ultrasound which showed adenomyomatosis and supposed to see surgery. Elevated LFTs n/v RUQ abdominal pain MRCP - No evidence of pancreatic or biliary ductal obstruction iv Zosyn iv Dilaudid prn, npo, iv fluids antiemetics prn follow repeat labs GI and Surgery consulted Discussed with surgery yesterday - pt may need cholecystectomy - kept NPO after GA. [facility] surgery to assume care today (08/19/23) GI - likely plan for EGD today (08/19/23). LFTs elevated seem to be chronic, perhaps d/t fatty liver HTN urgency not able to take PO meds on admission - Now pt able to take PO meds, says his BP was not well controlled at home and he does not see his PCP often. placed on iv Lopressor initially. restarted po Lopressor now cont. losartan iv hydralazine prn serial troponin negative Monitor closely BP, adjyst meds as needed Echo pending Arrhythmia, poss. vt episode (on 08/17 pm) Pt reported 5-6 sec palpitations, otherwise asymptomatic, and resolved Per RN occurred shortly after she gave IV lopressor ECG obtained, BMP Echo pending No re-occurrence. Cont. to monitor on tele, if any more episodes or concerning echo, will discuss w/ cardiology Alcoholism patient he says drinks 4 beers every 2-3 days patient doesn't think he will go through withdrawal. says he can go without drinking for few days will do iv thiamine and iv folic acid iv ativan prn close monitor. VALERY says not using cpap says he is sleeping fine will monitor Hyperlipidemia on Crestor GERD ppi Depression on fluoxetine DVt px scds Disposition med/tele Full code. Admission and Anticipated Discharge Date Admission Date: August 17, 2023 Subjective Pt seen in follow up of abd. pain, n/v , elev. LFTs - poss. cholecystitis, also found to have UTI, abx started on admission Surgery and GI consulted RUQ pain is improved today. Continues to have flank pain - says that he gets back pain in that area on and off. No chest pain shortness of breath. No fevers chills however says occasionally he does get warm. Discussed with surgery yesterday, [facility] surgical team will take over today - pt still may need cholecystectomy. Per GI, patient to have EGD today (08/19/23). Pt's present at the bedside yesterday and day before yesterday. Review of Systems Review of Systems: All systems reviewed & are unremarkable except as noted in Subjective Physical Exam Physical Exam: General- WD/WN M in NAD Head- atraumatic Eyes- PERRL. Neck- supple, no JVD. Lungs- clear to auscultation no wheezing or crackles Heart- regular rhythm; no murmur, no gallop. Abdomen- normal bowel sounds, soft, + RUQ tenderness (improved today) Extremities- no pretibial edema, no erythema. moves extremities Neuro- alert, oriented PERRL, no facial palsy; no dysarthria; moves extremities Results & Data Results & Data Vital Signs (Past 12 Hours) Vital Signs Temp Pulse Pulse Resp BP Pulse Ox O2 Del Method 08/19/23 02:29 36.8 C 85 16 169/103 H 97 Room Air 08/18/23 22:40 81 08/18/23 22:40 83 168/99 H Laboratory Results 08/19/23 08/18/23 Range/Units 05:53 18:48 WBC 8.29 (4.8-10.8) K/ul RBC 3.88 L (4.70-6.10) M/uL Hgb 13.9 L (14.0-18.0) g/dl Hct 37.2 L (42.0-52.0) % MCV 95.9 (80.0-100.0) fL MCH 35.8 H (25.0-34.0) pg MCHC 37.4 H (32.0-36.0) g/dL RDW Std Deviation 42.2 (36.4-46.3) fL RDW Coeff of Mona 12.2 (11.5-14.5) % Plt Count 171 (130-400) K/uL MPV 9.6 (9.4-12.4) fL Sodium 135 L 134 L (136-145) mmol/L Potassium 3.6 3.6 (3.5-5.1) mmol/L Chloride 105 104 (98-107) mmol/L Carbon Dioxide 20 L 21 (21-32) mmol/L Anion Gap 10 9 (3-11) BUN 5 L 7 (6-23) mg/dl Creatinine 0.91 1.02 (0.6-1.4) mg/dl Est Cr Clr Drug Dosing 104.7 93.4 ml/min Est GFR ( Amer) 109.6 95.5 ml/min Est GFR (Non-Af Amer) 94.5 82.4 ml/min BUN/Creatinine Ratio 5.5 L 6.9 L (10-20) Glucose 102 H 116 H (70-99(Fasting)) mg/dl Calcium 8.8 8.9 (8.6-10.3) mg/dl Phosphorus 2.9 2.4 L D (2.5-4.9) mg/dl Magnesium 1.7 1.7 (1.7-2.4) mg/dl Total Bilirubin 2.2 H (0.2-1.0) mg/dl AST 38 (13-39) U/L ALT 45 (7-52) U/L Alkaline Phosphatase 52 (34-104) U/L Total Protein 5.9 L (6.0-8.3) gm/dl Albumin 3.9 (3.4-5.0) gm/dl Globulin 2.0 L (2.5-4.0) gm/dl Albumin/Globulin Ratio 2.0 (0.9-2) Medications Administered Current Inpatient Medications Diclofenac Sodium (Diclofenac Sod 1% Gel 100 Gm Tube) 2 gm EXT BID TORRI; Protocol Stop: 09/17/23 14:24 Last Admin: 08/19/23 08:16 Dose: 2 gm Fluoxetine HCl (Fluoxetine Hcl 10 Mg Cap) 10 mg PO DAILY TORRI Stop: 09/16/23 08:59 Last Admin: 08/19/23 08:16 Dose: 10 mg Hydralazine HCl (Hydralazine Hcl 20 Mg/Ml Vial) 7.5 mg IV Q6H PRN PRN Reason: Hypertension Stop: 09/16/23 03:32 Last Admin: 08/18/23 22:14 Dose: 7.5 mg Hydromorphone HCl (Hydromorphone Inj 0.5 Mg/0.5 Ml Syr) 0.5 mg IV Q4H PRN PRN Reason: Mod-Sev Pain (Scale 4-10) Stop: 08/31/23 03:32 Last Admin: 08/18/23 21:34 Dose: 0.5 mg Sodium Chloride (Nss) 1,000 mls @ 80 mls/hr IV .[id number] [facility] Stop: 09/16/23 03:32 Last Infusion: 08/18/23 18:46 Dose: Infused Pantoprazole Sodium 40 mg/ (Syringe) 10 mls @ 5 mls/min IV DAILY@1100 [facility] Stop: 09/16/23 10:59 Last Admin: 08/19/23 10:18 Dose: 5 mls/min Piperacillin Sod/Tazobactam (Sod 4.5 gm/ Dextrose) 100 mls @ 25 mls/hr IV Q8H [facility]; Protocol Stop: 08/27/23 09:59 Last Admin: 08/19/23 10:18 Dose: 25 mls/hr Thiamine HCl 100 mg/ Syringe 10 mls @ 2 mls/min IV QAM [facility] Stop: 09/16/23 11:59 Last Admin: 08/19/23 08:17 Dose: 2 mls/min Folic Acid 1 mg/ Syringe 10 mls @ 5 mls/min IV QAM [facility] Stop: 09/16/23 11:59 Last Admin: 08/19/23 08:17 Dose: 5 mls/min Lorazepam 1 mg/ Syringe 1 mls @ 2 mls/min IV Q4H PRN PRN Reason: Anxiety/Agitation Stop: 09/16/23 03:32 Losartan Potassium (Losartan Potassium 50 Mg Tab) 50 mg PO DAILY [facility] Stop: 09/18/23 08:59 Last Admin: 08/19/23 09:20 Dose: 50 mg Metoprolol Tartrate (Metoprolol Tartrate 25 Mg Tab) 25 mg PO BID [facility] Stop: 09/17/23 20:59 Last Admin: 08/19/23 08:19 Dose: 25 mg Metoprolol Tartrate (Metoprolol Tartrate 1 Mg/Ml Vial) 5 mg IV Q6 PRN PRN Reason: HR >110 Stop: 09/16/23 05:59 Nitroglycerin (Nitroglycerin Sl 0.4 Mg/Tab Tab) 0.4 mg SL Q5M PRN PRN Reason: Chest Pain Stop: 09/16/23 03:32 Ondansetron HCl (Ondansetron Inj 2 Mg/Ml 2 Ml Vial) 4 mg IV Q6H PRN PRN Reason: Nausea Stop: 09/16/23 03:32 Last Admin: 08/17/23 21:25 Dose: 4 mg Rosuvastatin Calcium (Rosuvastatin Calcium 20 Mg Tab) 20 mg PO DAILY [facility] Stop: 09/16/23 08:59 Last Admin: 08/19/23 08:17 Dose: 20 mg
--- NOTE | 2023-08-19 13:58 | History & Physical Report ---
Date of Service August 19, 2023 Assessment & Plan (1) Vomiting: Plan: Pleasant man with nausea and vomiting. Procedure and risks for EGD discussed and he agrees Admission and Anticipated Discharge Date Admission Date: August 17, 2023 History of Present Illness Chief Complaint: nausea and vomiting Primary Care Provider: Mehnaz Stuart PA-C 53 year old man with intermittent nausea and vomiting. He is here for EGD Allergies Allergy/AdvReac Type Severity Reaction Status Date / Time magnesium oxide Allergy Intermediate Rash Verified 08/16/23 22:05 [From Prepopik] sodium picosulfate Allergy Intermediate Rash Verified 08/16/23 22:05 [From Prepopik] erythromycin base AdvReac Severe seizures Verified 08/16/23 22:05 Home Medications Medication Instructions Recorded Confirmed Type omeprazole 40 mg capsule,delayed 40 mg PO DAILY #90 caps 10/26/21 08/16/23 Rx release diphenhydramine HCl 25 mg capsule 25 mg PO DAILY 08/16/23 08/16/23 History (Benadryl) fluoxetine 10 mg capsule 10 mg PO DAILY 08/16/23 08/16/23 History losartan 25 mg tablet 25 mg PO DAILY 08/16/23 08/16/23 History rosuvastatin 20 mg tablet 20 mg PO DAILY 08/16/23 08/16/23 History metoprolol tartrate 100 mg tablet 100 mg PO BID 08/17/23 08/17/23 History Past Med/Surg History Medical History Hx of renal failure History of. Secondary to medication reactions - kidney function has since improved to WNL GERD (gastroesophageal reflux disease) Avascular necrosis of hip Constipation Severe obstructive sleep apnea No device- "it did not help" per patient Chronic back pain Hyperlipidemia Hypertension Surgical History History of hip surgery Hx of tonsillectomy History of hand surgery right History of laminectomy lumbar Family History Mother Dementia Grandmother (Maternal) Dementia Aunt Dementia Denies family history of Colon cancer Ovarian cancer Prostate cancer Myocardial infarction Breast cancer Social History Smoking Status: Never smoker Second Hand Exposure: No; Do You Dip or Chew Tobacco: No; Hx Alcohol Use: Yes Alcohol type: beer Alcohol Intake Frequency: 4 or More x per/Week Alcohol Intake Frequency Comment: 15-25 drinks/week Hx Substance Use: No Preferred Language: Japanese Communication Ability: Effective Visual Impairment: No Limitations Hearing Ability: Normal 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 Beliefs That Will Affect Care: None marital status: Current Living Situation: Spouse current occupational status: retired Feels Safe at Home: Yes Childhood Exposure to Second-Hand Smoke: Yes Diet: regular Diet Comment: no diet plans caffeine: Yes during the past year weight has: decreased > 10 lbs Dental Care, Regularly: Yes Physical Activity Frequency: Does not Exercise Seatbelt Use: always Sunscreen Use: No Do you think of yourself as: straight/heterosexual Assistive Devices: Cane Review of Systems All systems reviewed & are unremarkable except as noted in HPI & below Physical Exam Constitutional: WD/WN, vitals as above Neck: trachea midline, no thyromegaly Respiratory: normal respiratory effort, lungs clear to auscultation Cardiovascular: RRR, no murmur, no edema Gastrointestinal (Abdomen): normal bowel sounds, soft, nontender, no hepatosplenomegaly ASA Classification ASA ASA2 Results & Data Vital Signs (Past 12 Hours) Vital Signs Temp Pulse Resp BP Pulse Ox O2 Del Method 08/19/23 13:45 37.2 C 83 18 195/114 H 96 Room Air 08/19/23 11:00 36.5 C 87 20 178/104 H 99 Room Air 08/19/23 08:00 Room Air 08/19/23 07:40 36.7 C 77 20 175/97 H 98 Room Air 08/19/23 02:29 36.8 C 85 16 169/103 H 97 Room Air Code Status & VTE Plan VTE Prophylaxis Plan VTE Prophylaxis will be ordered: Yes
--- NOTE | 2023-08-19 14:15 | GI REPORT ---
Patient Name: Domingo Nguyen Procedure Date: 08/19/2023 1:51 PM Date of : 1970 Admit Type: Inpatient Age: 53 Gender: Male Attending MD: Letitia Garner MD, Procedure: Upper GI endoscopy Providers: Letitia Garner MD Referring MD: Mehnaz Stuart Indications: Vomiting Medicines: Propofol per Anesthesia Complications: No immediate complications. Estimated Blood Loss: Estimated blood loss: none. Procedure: Pre-Anesthesia Assessment: - Prior to the procedure, a History and Physical was performed, and patient medications and allergies were reviewed. The patient's tolerance of previous anesthesia was also reviewed. The risks and benefits of the procedure and the sedation options and risks were discussed with the patient. All questions were answered, and informed consent was obtained. Prior Anticoagulants: The patient has taken no anticoagulant or antiplatelet agents. ASA Grade Assessment: II - A patient with mild systemic disease. After reviewing the risks and benefits, the patient was deemed in satisfactory condition to undergo the procedure. After obtaining informed consent, the endoscope was passed under direct vision. Throughout the procedure, the patient's blood pressure, pulse, and oxygen saturations were monitored continuously. The Endoscope was introduced through the mouth, and advanced to the second part of duodenum. The upper GI endoscopy was accomplished without difficulty. The patient tolerated the procedure well. Findings: The esophagus was normal. The stomach was normal. The examined duodenum was normal. Impression: - Normal esophagus. - Normal stomach. - Normal examined duodenum. - No specimens collected. Recommendation: - [facility]. - Resume previous diet. Letitia Garner MD 08/19/2023 2:15:16 PM Note Initiated On: 08/19/2023 1:51 PM Number of Addenda: 0 I attest to the content of the Intraoperative Record and orders documented therein, exceptions below {[id number]}
--- NOTE | 2023-08-19 14:25 | Electrocardiogram Report ---
Test Reason : Blood Pressure : / mmHG Vent. Rate : 064 BPM Atrial Rate : 064 BPM P-R Int : 144 ms QRS Dur : 080 ms QT Int : 476 ms P-R-T Axes : 031 037 086 degrees QTc Int : 491 ms Normal sinus rhythm T wave abnormality, consider lateral ischemia Prolonged QT Abnormal ECG When compared with ECG of 27-JAN-2021 15:44, QT has lengthened Confirmed by Carlo Valencia ([id number]) on 08/19/2023 2:24:51 PM Referred By: Mehnaz Stuart Confirmed By:Carlo Valencia
--- NOTE | 2023-08-19 14:35 | Communication Note ---
Date of Service: August 19, 2023 Patient not seen, chart reviewed. CT and MRCP negative for cholecystitis, cholelithiasis, or choledocholithiasis. No leukocytosis. Afebrile. Underwent EGD today which was unremarkable. Afebrile. Still hypertensive with bp 195/114 today. No acute surgical intervention recommended based on multiple imaging studies showing no acute cholecystitis, leukocytosis, and afebrile. Patient can follow-up with Dr. José Miguel mccabe as outpatient for discussion of cholecystectomy if symptoms persist as this could represent biliary dyskinesia.
--- NOTE | 2023-08-19 14:57 | Anesthesiology Progress Note ---
Date of Service August 19, 2023 Anesthesia Post Procedure Vital Signs Vital Signs: Temp Pulse Pulse Resp BP Pulse Ox O2 Del Method 08/19/23 14:37 60 18 143/89 H 98 Room Air 08/19/23 14:28 67 18 158/100 H 97 Room Air 08/19/23 14:16 69 18 104/59 L 95 Room Air 08/19/23 13:45 37.2 C 83 18 195/114 H 96 Room Air 08/19/23 11:00 36.5 C 87 20 178/104 H 99 Room Air 08/19/23 08:00 Room Air 08/19/23 07:40 36.7 C 77 20 175/97 H 98 Room Air 08/19/23 02:29 36.8 C 85 16 169/103 H 97 Room Air 08/18/23 22:40 81 08/18/23 22:40 83 168/99 H 08/18/23 22:10 37.0 C 63 17 184/98 H 98 Room Air 08/18/23 20:00 Room Air 08/18/23 19:45 36.6 C 79 18 188/118 H 97 Room Air 08/18/23 18:18 81 08/18/23 18:04 99 H 08/18/23 15:37 99 H 22 99 Room Air Pain Intensity Bilateral Lower Back: Pain Intensity: 5 Transfer of Care Handoff Completed per policy Notes Mental Status: alert / awake / arousable and participated in evaluation Patient Amnestic to Procedure: Yes Nausea / Vomiting: adequately controlled Pain: adequately controlled Airway Patency, RR, SpO2: stable & adequate BP & HR: stable & adequate Hydration State: stable & adequate Anesthetic Complications: no major complications apparent
[2023-08-19] MEDS: hydrALAZINE HCL 20 MG/ML VIAL IV ONE ×2 (15:45→18:27)
[2023-08-19] MEDS: PROPOFOL IV EMULSION 10 MG/ML 20 ML VIAL IV ONE (18:40)
[2023-08-19] MEDS: LIDOCAINE 2% 2 ML VIAL/AMP(20MG/ML) INFIL ONE (18:40)
[2023-08-19] MEDS: LORazepam 1 MG in SYRINGE 0.5 ML IV PRN (21:49)
[2023-08-20 06:24] LABS: Hematocrit (blood only) 37.5 % (42.0-52.0); Hemoglobin 13.4 g/dl (14.0-18.0); Mean Corpuscular Hemoglobin 35.2 pg (25.0-34.0); Mean Corpuscular Hgb Conc 35.7 g/dL (32.0-36.0); Mean Corpuscular Volume 98.4 fL (80.0-100.0); Mean Platelet Volume 9.8 fL (9.4-12.4); Platelet Count 160 K/uL (130-400); RDW Coefficient of Variation 12.3 % (11.5-14.5); RDW Standard Deviation 44.3 fL (36.4-46.3); Red Blood Count 3.81 M/uL (4.70-6.10); White Blood Count 6.69 K/ul (4.8-10.8)
[2023-08-20 06:33] LABS: Albumin Level 3.9 gm/dl (3.4-5.0); Bilirubin,Total 1.9 mg/dl (0.2-1.0); Calcium 8.8 mg/dl (8.6-10.3); Magnesium 1.8 mg/dl (1.7-2.4); Potassium 3.7 mmol/L (3.5-5.1)
[2023-08-20 06:39] LABS: BUN Creatinine Ratio 6.5 (10-20); Creatinine Clr Calc Pharmacy 88.5 ml/min; Est GFR (African American) 90.1 ml/min; Est GFR (Non-African American) 77.7 ml/min; Phosphorus 3.5 mg/dl (2.5-4.9); Total Protein 5.9 gm/dl (6.0-8.3)
[2023-08-20] MEDS: amLODIPine BESYLATE 5 MG TAB PO SCH (09:25)
[2023-08-20] MEDS: hydrALAZINE HCL 20 MG/ML VIAL IV PRN (13:06)
[2023-08-20] MEDS: AMOXICILLIN/CLAVULANATE 875 MG TAB PO SCH (16:35)
[2023-08-20] MEDS: LORazepam 0.5 MG TAB PO PRN (17:47)
--- NOTE | 2023-08-20 18:40 | Hospitalist Progress Note ---
Date of Service August 20, 2023 delayed entry date of service noted above Assessment & Plan (1) Elevated LFTs: Plan: per admitting service notes with addendum: 53 yo M with hypertension, hyperlipidemia, depression, GERD . VALERY presents nausea vomiting and abdominal discomfort. Was not able to take his blood pressure medications because of nausea/vomiting and blood pressure running high. He was also having chills rigors sweating and shaky. Denies any chest pain. Currently no shortness of breath. States he has chronic cough and he had bronchoscopy in the past and was found to have some infection and supposedly repeat bronchoscopy but was not done. States has asthma but does not use inhalers. Denies any headache. No dizziness. No blurred vision. Normal bowel and bladder movements. Recently had a gallbladder ultrasound which showed adenomyomatosis and supposed to see surgery. Elevated LFTs n/v RUQ abdominal pain MRCP - No evidence of pancreatic or biliary ductal obstruction iv Zosyn iv Dilaudid prn, npo, iv fluids antiemetics prn follow repeat labs GI and Surgery consulted Discussed with surgery yesterday - pt may need cholecystectomy - kept NPO after [facility]. [facility] surgery to assume care today (08/19/23) GI - likely plan for EGD today (08/19/23). LFTs elevated seem to be chronic, perhaps d/t fatty liver /2 s/p EGD: unrevealing abdominal symptoms resolved HTN urgency not able to take PO meds on admission - Now pt able to take PO meds, says his BP was not well controlled at home and he does not see his PCP often. placed on iv Lopressor initially. restarted po Lopressor now cont. losartan iv hydralazine prn serial troponin negative Monitor closely BP, adjyst meds as needed Echo pending 2 Increase losartan to twice daily\ Monitor BP Arrhythmia, poss. vt episode (on 08/17 pm) Pt reported 5-6 sec palpitations, otherwise asymptomatic, and resolved Per RN occurred shortly after she gave IV lopressor ECG obtained, BMP Echo pending No re-occurrence. Cont. to monitor on tele, if any more episodes or concerning echo, will discuss w/ cardiology patient he says drinks 4 beers every 2-3 days patient doesn't think he will go through withdrawal. says he can go without drinking for few days will do iv thiamine and iv folic acid iv ativan prn close monitor no signs of acute withdrawal VALERY says not using cpap says he is sleeping fine will monitor Hyperlipidemia on Crestor GERD ppi Depression on fluoxetine DVt px scds Disposition anticipate to d/c home when BP stable Admission and Anticipated Discharge Date Admission Date: August 17, 2023 Subjective ff up for abdominal pain, etc seen resting in bed, comfortable, not in distress Abdomen pain resolved Tolerating diet no chest pain, dyspnea, palpitations, dizziness No other new symptoms Review of Systems Review of Systems: all noted and negative except for above Physical Exam Physical Exam: General- oriented x 3, not in distress, speaks in sentences with no effort or accessory muscle use Eyes- anicteric Neck- no JVD Lungs- clear breath sounds bilaterally, no rales/wheezes Heart- normal rate, regular rhythm; no murmurs Abdomen- normal bowel sounds, nondistended, soft, nontender Extremities- no pretibial edema, no calf tenderness Neuro- alert, oriented x 3; no gross focal neurologic deficits Skin- warm & dry Results & Data Results & Data Vital Signs (Past 12 Hours) Vital Signs Temp Pulse Pulse Resp BP BP Pulse Ox 08/20/23 18:20 76 193/118 H 08/20/23 15:43 36.5 C 57 L 18 182/108 H 98 08/20/23 13:00 65 198/123 H 08/20/23 10:53 36.5 C 71 18 180/112 H 96 08/20/23 10:35 60 191/120 H 08/20/23 09:23 64 170/105 H 08/20/23 07:21 36.5 C 58 L 18 166/100 H 94 O2 Del Method 08/20/23 18:20 08/20/23 15:43 Room Air 08/20/23 13:00 08/20/23 10:53 Room Air 08/20/23 10:35 08/20/23 09:23 08/20/23 07:21 Room Air all noted and reviewed including below
[2023-08-20] MEDS: LOSARTAN POTASSIUM 50 MG TAB PO SCH (19:56)
[2023-08-20] MEDS: LABETALOL HCL IV 5 MG/ML 20ML IV STA (22:53)
[2023-08-20] MEDS: NITROGLYCERIN 2% OINTMENT 30GM TUBE EXT SCH (23:43)
--- NOTE | 2023-08-21 09:04 | Cardiology Consultation ---
Date of Consultation August 21, 2023 Assessment & Plan (1) Hypertension: (2) LVH (left ventricular hypertrophy): (3) Abnormal EKG: (4) Severe obstructive sleep apnea: Plan Patient initially admitted for nausea/vomiting/abdominal pain/elevated LFT's During admission found to have persistently elevated HTN despite multiple med changes. Home antihypertensives included losartan 25 mg daily and metoprolol tartrate 100 mg BID Since admission, amlodipine added, losartan increased. PRN use of IV hydralazine and IV labetalol also used Nitro ointment used last evening causing a headache. Nitro ointment discontinued this morning Increase amlodipine to 10 mg daily Stop metoprolol tartrate Start carvedilol 6.25 mg BID, starting tonight Echo reveals moderate LVH, grade II diastolic dysfunction and mildly elevated pulm pressures. Unchanged from prior echo. Could consider low dose HCTZ but with mild hyponatremia, will avoid diuretics for now. Likely has underlying VALERY but did not tolerate CPAP. Monitor BP several hours after med adjustments. Carvedilol to be started tonight. titrate as tolerated Case discussed with Dr. Villa I spent a total of 60 minutes on the date of service in preparation, delivery, and documentation of the care provided to this patient, excluding any time spent in the performance of separately billed services. Berta Li PA-C Department of Cardiology, [facility] This chart was completed in part utilizing Speech Voice Recognition Software. Grammatical errors, random word insertions, pronoun errors, and incomplete sentences are an occasional consequence of this system due to software limitations, ambient noise, and hardware issues. Any formal questions or concerns about the content, text, or information contained within the body of this dictation should be directly addressed to the provider for clarification. Supervising Physician Co-Signing Physician Notes Attending attestation: Case reviewed with the advanced practitioner. I have personally performed a history and physical examination on the patient. I have reviewed the advanced practitioner's documentation on the date of service referenced in note, and I agree with, and take responsibility for the plan of care. EKG with chronic T wave changes consistent with underlying left ventricular hypertrophy, perhaps related to longstanding suboptimally controlled hypertension. Grade 2 diastolic dysfunction was along with findings of underlying high blood pressure related heart disease. Proceed with medication changes as outlined. I spent a total of 20 minutes coordinating, documenting, and providing care for this patient excluding time spent in the performance of separately billed services or time spent by another provider. Will Villa DO History of Present Illness Reason for Consultation: HTN urgency Requesting Physician: Dr. Fontaine Attending Physician: Dr. Villa History of Present Illness Patient is a 53 year old male admitted to [facility] with nausea/vomiting, abdominal pain, elevated LFT's. History includes: 1. abnormal EKG with T wave inversions, consistent with LVH 2. Hypertensive heart disease 3. Dyslipidemia He has been admitted for several days and underwent surgical and GI evaluation for current complaints. He underwent CT and MRCP which was negative for acute cholecystitis, cholelithiasis and choledocholithiasis. EGD was unremarkable. During admission patient has been persistent hypertensive and cardiology was consulted to assist. His home medications include losartan 25 mg and metoprolol tartrate 100 mg daily. Over the last several days, losartan was increased to 50 mg BID, amlodipine initiated at 5 mg, metoprolol tartrate changed to 25 mg BID, nitro ointment added, and intermittent IV hydralazine and IV labetalol also used. Patient has a history of abnormal EKG with T wave inversions consistent with LVH. Echo in 2020 revealed moderate LVH. Repeat echo during this admission with similar findings, moderate LVH, grade II diastolic dysfunction, mildly elevated pulm pressures. At time of consult, patient resting in chair feeling well. He denies acute cardiac complaints. No recent chest pain or unusual shortness of breath. No recurrent nausea, vomiting or abdominal pain. No dizziness or lightheadedness. No palpitations. He had a headache this morning which was likely due to the nitro ointment placed last night due to uncontrolled hypertension. He denied headache prior to the nitro. Allergies Allergy/AdvReac Type Severity Reaction Status Date / Time magnesium oxide Allergy Intermediate Rash Verified 08/16/23 22:05 [From Prepopik] sodium picosulfate Allergy Intermediate Rash Verified 08/16/23 22:05 [From Prepopik] erythromycin base AdvReac Severe seizures Verified 08/16/23 22:05 Home Medications Medication Instructions Recorded Confirmed Type omeprazole 40 mg capsule,delayed 40 mg PO DAILY #90 caps 10/26/21 08/16/23 Rx release diphenhydramine HCl 25 mg capsule 25 mg PO DAILY 08/16/23 08/16/23 History (Benadryl) fluoxetine 10 mg capsule 10 mg PO DAILY 08/16/23 08/16/23 History losartan 25 mg tablet 25 mg PO DAILY 08/16/23 08/16/23 History rosuvastatin 20 mg tablet 20 mg PO DAILY 08/16/23 08/16/23 History metoprolol tartrate 100 mg tablet 100 mg PO BID 08/17/23 08/17/23 History Patient History Medical History Hx of renal failure History of. Secondary to medication reactions - kidney function has since improved to WNL GERD (gastroesophageal reflux disease) Avascular necrosis of hip Constipation Severe obstructive sleep apnea No device- "it did not help" per patient Chronic back pain Hyperlipidemia Hypertension Surgical History History of hip surgery Hx of tonsillectomy History of hand surgery right History of laminectomy lumbar Family History Mother Dementia Grandmother (Maternal) Dementia Aunt Dementia Denies family history of Colon cancer Ovarian cancer Prostate cancer Myocardial infarction Breast cancer Social History Smoking Status: Never smoker Second Hand Exposure: No; Do You Dip or Chew Tobacco: No; Hx Alcohol Use: Yes Alcohol type: beer Alcohol Intake Frequency: 4 or More x per/Week Alcohol Intake Frequency Comment: 15-25 drinks/week Hx Substance Use: No Preferred Language: German Communication Ability: Effective Visual Impairment: No Limitations Hearing Ability: Normal Compliance Field Technician Required: No Beliefs That Will Affect Care: None marital status: Current Living Situation: Spouse current occupational status: retired Feels Safe at Home: Yes Childhood Exposure to Second-Hand Smoke: Yes Diet: regular Diet Comment: no diet plans caffeine: Yes during the past year weight has: decreased > 10 lbs Dental Care, Regularly: Yes Physical Activity Frequency: Does not Exercise Seatbelt Use: always Sunscreen Use: No Do you think of yourself as: straight/heterosexual Assistive Devices: Cane Review of Systems Review of Systems: All systems reviewed & are unremarkable except as noted in HPI & below Physical Exam Constitutional: WD/WN, vitals as above well nourished; no acute distress Neck: trachea midline, no thyromegaly Respiratory: normal respiratory effort; no respiratory distress Auscultation: lungs clear to auscultation bilaterally Cardiovascular: Rate/Rhythm: regular rate and regular rhythm Heart Sounds: normal S1 and normal S2; no murmur Gastrointestinal (Abdomen): normal bowel sounds, soft, nontender, no hepatosplenomegaly Skin: no rashes, warm and dry Neurologic: PERRL, EOMI, accommodation nl, no face palsy, no dysarthria Results & Data Vital Signs (Past 12 Hours) Vital Signs Temp Pulse Pulse Pulse Resp BP BP 08/21/23 07:33 36.6 C 72 18 08/21/23 03:24 36.6 C 71 16 159/98 H 08/21/23 01:28 76 08/20/23 23:59 36.7 C 72 16 08/20/23 23:22 65 08/20/23 23:17 74 176/118 H 08/20/23 22:53 75 198/132 H 08/20/23 22:30 37 C 59 L 16 180/106 H 08/20/23 21:26 BP Pulse Ox O2 Del Method 08/21/23 07:33 174/112 H 95 Room Air 08/21/23 03:24 96 Room Air 08/21/23 01:28 156/99 H 08/20/23 23:59 179/109 H 97 Room Air 08/20/23 23:22 08/20/23 23:17 08/20/23 22:53 08/20/23 22:30 95 Room Air 08/20/23 21:26 198/132 H Laboratory Results Intake and Output 08/20/23 08/21/23 08/21/23 22:59 06:59 14:59 Intake Total 490 / 1115 200 / 1115 Output Total 2 / 2 Balance 490 / 1114 200 / 1114 -2 / -2 Intake: Oral 490 / 1015 200 / 1015 Output: # Bowel Movements 2 / 2 Other: # Unmeasured Voids 1 2 Weight 90.5 kg Weight Measurement Method Built in [facility] Diagnostic Findings Telemetry reviewed: Normal sinus rhythm at 70 bpm. No arrhythmias. EKG reviewed from 08/18/23: NSR with T wave abnormality/T wave inversion in inferolateral leads. No change from prior Echo reviewed from 08/19/23: Moderate concentric LVH EF 60-65% normal wall motion Mildly elevated pulm pressure Grade II diastolic dysfunction aortic root is borderline dilated at 3.8 cm Compared with prior echo, 01/2021, Moderate concentric LVH and grade II diastolic dysfunction were present at that time. Prior echo reviewed from 02/01/23 at [facility]: Normal Biventricular systolic function LVEF 55-60% Moderate LVH Trace AI Mild MR Trace TR Mild LA dilatation No prior study for comparison Medications Administered Current Inpatient Medications Amlodipine Besylate (Amlodipine Besylate 5 Mg Tab) 5 mg PO QAM [facility] Stop: 09/19/23 08:59 Last Admin: 08/21/23 08:30 Dose: 5 mg Amoxicillin/Clavulanate Potassium (Amoxicillin/Clavulanate 875 Mg Tab) 1 tab PO BIDM [facility]; Protocol Stop: 08/25/23 16:59 Last Admin: 08/21/23 08:30 Dose: 1 tab Diclofenac Sodium (Diclofenac Sod 1% Gel 100 Gm Tube) 2 gm EXT BID [facility]; Protocol Stop: 09/17/23 14:24 Last Admin: 08/21/23 08:31 Dose: 2 gm Fluoxetine HCl (Fluoxetine Hcl 10 Mg Cap) 10 mg PO DAILY [facility] Stop: 09/16/23 08:59 Last Admin: 08/21/23 08:30 Dose: 10 mg Hydralazine HCl (Hydralazine Hcl 20 Mg/Ml Vial) 5 mg IV Q6H PRN PRN Reason: systolic bp > 160 Stop: 09/19/23 12:07 Last Admin: 08/20/23 18:44 Dose: 5 mg Hydromorphone HCl (Hydromorphone Inj 0.5 Mg/0.5 Ml Syr) 0.5 mg IV Q4H PRN PRN Reason: Mod-Sev Pain (Scale 4-10) Stop: 08/31/23 03:32 Last Admin: 08/20/23 21:16 Dose: 0.5 mg Sodium Chloride (Nss) 1,000 mls @ 80 mls/hr IV .[id number] [facility] Stop: 09/16/23 03:32 Last Infusion: 08/18/23 18:46 Dose: Infused Pantoprazole Sodium 40 mg/ (Syringe) 10 mls @ 5 mls/min IV DAILY@1100 [facility] Stop: 09/16/23 10:59 Last Admin: 08/20/23 10:37 Dose: 5 mls/min Thiamine HCl 100 mg/ Syringe 10 mls @ 2 mls/min IV QAM [facility] Stop: 09/16/23 11:59 Last Admin: 08/21/23 08:32 Dose: 2 mls/min Folic Acid 1 mg/ Syringe 10 mls @ 5 mls/min IV QAM [facility] Stop: 09/16/23 11:59 Last Admin: 08/21/23 08:31 Dose: 5 mls/min Lorazepam (Lorazepam 0.5 Mg Tab) 0.5 mg PO Q6H PRN PRN Reason: Anxiety Stop: 09/19/23 16:35 Last Admin: 08/21/23 06:05 Dose: 0.5 mg Losartan Potassium (Losartan Potassium 50 Mg Tab) 50 mg PO BID [facility] Stop: 09/19/23 20:59 Last Admin: 08/21/23 08:31 Dose: 50 mg Metoprolol Tartrate (Metoprolol Tartrate 25 Mg Tab) 25 mg PO BID [facility] Stop: 09/17/23 20:59 Last Admin: 08/21/23 08:30 Dose: 25 mg Metoprolol Tartrate (Metoprolol Tartrate 1 Mg/Ml Vial) 5 mg IV Q6 PRN PRN Reason: HR >110 Stop: 09/16/23 05:59 Nitroglycerin (Nitroglycerin Sl 0.4 Mg/Tab Tab) 0.4 mg SL Q5M PRN PRN Reason: Chest Pain Stop: 09/16/23 03:32 Nitroglycerin (Nitroglycerin 2% Ointment 30gm Tube) 0.5 inch EXT Q6 [facility] Stop: 09/19/23 23:29 Last Admin: 08/21/23 06:05 Dose: 0.5 inch Ondansetron HCl (Ondansetron Inj 2 Mg/Ml 2 Ml Vial) 4 mg IV Q6H PRN PRN Reason: Nausea Stop: 09/16/23 03:32 Last Admin: 08/17/23 21:25 Dose: 4 mg Rosuvastatin Calcium (Rosuvastatin Calcium 20 Mg Tab) 20 mg PO DAILY [facility] Stop: 09/16/23 08:59 Last Admin: 08/21/23 08:31 Dose: 20 mg (1) Hypertension Hypertension type: primary hypertension Qualified Code(s): I10 - Essential (primary) hypertension
[2023-08-21] MEDS: amLODIPine BESYLATE 5 MG TAB PO ONE (11:44)
--- NOTE | 2023-08-21 13:11 | Electrocardiogram Report ---
Test Reason : Blood Pressure : / mmHG Vent. Rate : 085 BPM Atrial Rate : 085 BPM P-R Int : 152 ms QRS Dur : 086 ms QT Int : 400 ms P-R-T Axes : 037 017 195 degrees QTc Int : 476 ms Normal sinus rhythm T wave abnormality, consider inferolateral ischemia Prolonged QT Abnormal ECG When compared with ECG of 16-AUG-2023 17:17, (unconfirmed) No significant change was found Confirmed by Carlo Valencia ([id number]) on 08/21/2023 1:10:53 PM Referred By: Mehnaz Stuart Confirmed By:Carlo Valencia
[2023-08-21] MEDS: carvediloL 6.25 MG TAB PO SCH (16:54)
--- NOTE | 2023-08-21 16:58 | Gastroenterology Progress Note ---
Date of Service August 21, 2023 Assessment & Plan (1) Vomiting: Plan: No further GI issues. Will sign off for now. Please reconsult if needed. I will follow up with him in office Admission and Anticipated Discharge Date Admission Date: August 17, 2023 Subjective Doing well from GI standpoint. Just ate fish and mashed potatoes without issue Physical Exam Physical Exam: He looks well Results & Data Vital Signs (Past 12 Hours) Vital Signs Temp Pulse Pulse Resp BP BP Pulse Ox 08/21/23 15:05 36.6 C 63 16 155/95 H 96 08/21/23 13:40 67 164/101 H 08/21/23 12:40 36.9 C 67 18 150/91 H 146/109 H 98 08/21/23 09:48 71 18 150/111 H 97 08/21/23 07:33 36.6 C 72 18 174/112 H 95 O2 Del Method 08/21/23 15:05 Room Air 08/21/23 13:40 08/21/23 12:40 Room Air 08/21/23 09:48 Room Air 08/21/23 07:33 Room Air
--- NOTE | 2023-08-21 19:33 | Hospitalist Progress Note ---
Date of Service August 21, 2023 Assessment & Plan (1) Elevated LFTs: Plan: per admitting service notes with addendum: 53 yo M with hypertension, hyperlipidemia, depression, GERD . VALERY presents nausea vomiting and abdominal discomfort. Was not able to take his blood pressure medications because of nausea/vomiting and blood pressure running high. He was also having chills rigors sweating and shaky. Denies any chest pain. Currently no shortness of breath. States he has chronic cough and he had bronchoscopy in the past and was found to have some infection and supposedly repeat bronchoscopy but was not done. States has asthma but does not use inhalers. Denies any headache. No dizziness. No blurred vision. Normal bowel and bladder movements. Recently had a gallbladder ultrasound which showed adenomyomatosis and supposed to see surgery. Elevated LFTs n/v RUQ abdominal pain MRCP - No evidence of pancreatic or biliary ductal obstruction iv Zosyn iv Dilaudid prn, npo, iv fluids antiemetics prn follow repeat labs GI and Surgery consulted Discussed with surgery yesterday - pt may need cholecystectomy - kept NPO after [facility] surgery to assume care today (08/19/23) GI - likely plan for EGD today (08/19/23). LFTs elevated seem to be chronic, perhaps d/t fatty liver 08/20 s/p EGD: unrevealing abdominal symptoms resolved HTN urgency not able to take PO meds on admission - Now pt able to take PO meds, says his BP was not well controlled at home and he does not see his PCP often. placed on iv Lopressor initially. restarted po Lopressor now cont. losartan iv hydralazine prn serial troponin negative Monitor closely BP, adjyst meds as needed Echo pending 08/20 Cardiology consulted for uncontrolled hypertension Carvedilol started Amlodipine further increased on Losartan 50mg BID monitor closely Arrhythmia, poss. vt episode (on 08/17 pm) Pt reported 5-6 sec palpitations, otherwise asymptomatic, and resolved Per RN occurred shortly after she gave IV lopressor ECG obtained, BMP Echo pending No re-occurrence. Cont. to monitor on tele, if any more episodes or concerning echo, will discuss w/ cardiology 08/20 telemetry reviewed patient had a few second episode of SVT no recurrence since currently on Carvedilol Alcoholism patient he says drinks 4 beers every 2-3 days patient doesn't think he will go through withdrawal. says he can go without drinking for few days will do iv thiamine and iv folic acid iv ativan prn close monitor no signs of acute withdrawal VALERY says not using cpap says he is sleeping fine will monitor Hyperlipidemia on Crestor GERD ppi Depression on fluoxetine DVt px scds Disposition anticipate to d/c home in 1-2 days Admission and Anticipated Discharge Date Admission Date: August 17, 2023 Subjective ff up for HTN, abdominal pain, etc seen resting in bed, comfortable states he feels ok overall somewhat tired no chest pain, dyspnea, palpitations, dizziness no headache abdominal pain resolved, has 2 soft BMs no other symptoms Review of Systems Review of Systems: all noted and negative except for above Physical Exam 2 Physical Exam: General- oriented x 3, not in distress, speaks in sentences with no effort or accessory muscle use Eyes- anicteric Neck- no JVD Lungs- clear breath sounds bilaterally, no rales/wheezes Heart- normal rate, regular rhythm; no murmurs Abdomen- normal bowel sounds, nondistended, soft, nontender Extremities- no pretibial edema, no calf tenderness Neuro- alert, oriented x 3; no gross focal neurologic deficits Skin- warm & dry Results & Data Results & Data Vital Signs (Past 12 Hours) Vital Signs Temp Pulse Pulse Resp BP BP Pulse Ox 08/21/23 15:05 36.6 C 63 16 155/95 H 96 08/21/23 13:40 67 164/101 H 08/21/23 12:40 36.9 C 67 18 150/91 H 146/109 H 98 08/21/23 09:48 71 18 150/111 H 97 08/21/23 07:33 36.6 C 72 18 174/112 H 95 O2 Del Method 08/21/23 15:05 Room Air 08/21/23 13:40 08/21/23 12:40 Room Air 08/21/23 09:48 Room Air 08/21/23 07:33 Room Air all noted and reviewed including below
[2023-08-22] MEDS: amLODIPine BESYLATE 5 MG TAB PO SCH (09:31)
[2023-08-22] MEDS ORDERED: hydroCHLOROthiazide 25 MG TAB PO SCH (11:15)
--- NOTE | 2023-08-22 11:25 | Cardiology Progress Note ---
Date of Service August 22, 2023 Assessment & Plan (1) Hypertension: (2) LVH (left ventricular hypertrophy): (3) Abnormal EKG: (4) Severe obstructive sleep apnea: Plan Patient initially admitted for nausea/vomiting/abdominal pain/elevated LFT's During admission found to have persistently elevated HTN despite multiple med changes. Home antihypertensives included losartan 25 mg daily and metoprolol tartrate 100 mg BID Since admission, amlodipine added, losartan increased. PRN use of IV hydralazine and IV labetalol also used Nitro ointment used last evening causing a headache. Nitro ointment discontinued this morning Increase amlodipine to 10 mg daily Stop metoprolol tartrate Start carvedilol 6.25 mg BID, starting tonight Echo reveals moderate LVH, grade II diastolic dysfunction and mildly elevated pulm pressures. Unchanged from prior echo. Could consider low dose HCTZ but with mild hyponatremia, will avoid diuretics for now. Likely has underlying VALERY but did not tolerate CPAP. Monitor BP several hours after med adjustments. Carvedilol to be started tonight. titrate as tolerated 08/22/23: BP improving over the last 24 hours but remains uncontrolled this morning. Continue amlodipine 10 mg daily, losartan 50 mg BID Metoprolol tartrate transitioned to carvedilol. Increase to 12.5 mg BID Add spironolactone 12.5 mg daily EKG abnormalities consistent with LVH. Echo revealed moderate LVH and preserved EF at time of echo this admission. However, he may benefit from outpatient ischemic work up, consider nuclear lexiscan scan given cardiac risk factors and abnormal EKG once BP improves. Hopeful his BP will be acceptable for discharge later this afternoon. Case discussed with Dr. Villa I spent a total of 35 minutes on the date of service in preparation, delivery, and documentation of the care provided to this patient, excluding any time spent in the performance of separately billed services. Berta Li PA-C Department of Cardiology, [facility] This chart was completed in part utilizing Speech Voice Recognition Software. Grammatical errors, random word insertions, pronoun errors, and incomplete sentences are an occasional consequence of this system due to software limitations, ambient noise, and hardware issues. Any formal questions or concerns about the content, text, or information contained within the body of this dictation should be directly addressed to the provider for clarification. Admission and Anticipated Discharge Date Admission Date: August 17, 2023 Supervising Physician Co-Signing Physician Notes Attending attestation: Case reviewed with the advanced practitioner. I have personally performed a history and physical examination on the patient. I have reviewed the advanced practitioner's documentation on the date of service referenced in note, and I agree with, and take responsibility for the plan of care. I spent a total of 20 minutes coordinating, documenting, and providing care for this patient excluding time spent in the performance of separately billed services or time spent by another provider. Will Winooski, DO Subjective Patient resting in bed comfortably. His blood pressure has made gradual improvement over the last 24 hours with several med changes. He denies acute complaints. No dizziness or lightheadedness. Prior complaints of nausea vomiting and abdominal pain have improved. No recent chest pain or unusual shortness of breath. Review of Systems Review of Systems: All systems reviewed & are unremarkable except as noted in HPI & below Physical Exam Constitutional: WD/WN, vitals as above well nourished; no acute distress Neck: trachea midline, no thyromegaly Respiratory: normal respiratory effort; no respiratory distress Auscultation: lungs clear to auscultation bilaterally Cardiovascular: Rate/Rhythm: regular rate and regular rhythm Heart Sounds: normal S1 and normal S2; no murmur Gastrointestinal (Abdomen): normal bowel sounds, soft, nontender, no hepatosplenomegaly Skin: no rashes, warm and dry Neurologic: PERRL, EOMI, accommodation nl, no face palsy, no dysarthria Results & Data Vital Signs (Past 12 Hours) Vital Signs Temp Pulse Pulse Resp BP BP Pulse Ox 08/22/23 10:59 36.6 C 74 20 160/117 H 98 08/22/23 08:00 74 08/22/23 08:00 08/22/23 07:07 36.6 C 60 19 157/106 H 94 08/22/23 02:42 36.4 C L 64 18 153/97 H 96 08/22/23 01:17 36.9 C 66 16 156/102 H 97 O2 Del Method 08/22/23 10:59 Room Air 08/22/23 08:00 08/22/23 08:00 Room Air 08/22/23 07:07 Room Air 08/22/23 02:42 Room Air 08/22/23 01:17 Room Air Laboratory Results Intake and Output 08/21/23 08/22/23 08/22/23 22:59 06:59 14:59 Intake Total 640 / 1680 540 / 1680 Balance 640 / 1678 540 / 1678 Intake: Oral 640 / 1680 540 / 1680 Other: # Unmeasured Voids 2 6 Weight 92.5 kg Weight Measurement Method Built in [facility] Diagnostic Findings Telemetry reviewed: Normal sinus rhythm ranging 70 to 90 bpm. No arrhythmias. Medications Administered Current Inpatient Medications Amlodipine Bes[facility] ([facility]odipine [facility]ylate 5 Mg Tab) [facility] [place]: 09/21/23 08:59 Last Admin: 08/22/23 09:31 Dose: 10 mg Amoxicillin/Clavulanate Potassium (Amoxicillin/Clavulanate 875 Mg Tab) 1 tab PO BIDM [facility]; Protocol Stop: 08/25/23 16:59 Last Admin: 08/22/23 09:32 Dose: 1 tab Carvedilol (Carvedilol 12.5 Mg Tab) 12.5 mg PO BIDM [facility] Stop: 09/21/23 16:59 Carvedilol (Carvedilol 6.25 Mg Tab) 6.25 mg PO ONE ONE Stop: 08/22/23 11:20 Diclofenac Sodium (Diclofenac Sod 1% Gel 100 Gm Tube) 2 gm EXT BID [facility]; Protocol Stop: 09/17/23 14:24 Last Admin: 08/22/23 09:32 Dose: 2 gm Fluoxetine HCl (Fluoxetine Hcl 10 Mg Cap) 10 mg PO DAILY [facility] Stop: 09/16/23 08:59 Last Admin: 08/22/23 09:31 Dose: 10 mg Hydralazine HCl (Hydralazine Hcl 20 Mg/Ml Vial) 5 mg IV Q6H PRN PRN Reason: systolic bp > 160 Stop: 09/19/23 12:07 Last Admin: 08/20/23 18:44 Dose: 5 mg Hydrochlorothiazide (Hydrochlorothiazide 25 Mg Tab) 12.5 mg PO QAM [facility] Stop: 09/21/23 11:14 Hydromorphone HCl (Hydromorphone Inj 0.5 Mg/0.5 Ml Syr) 0.5 mg IV Q4H PRN PRN Reason: Mod-Sev Pain (Scale 4-10) Stop: 08/31/23 03:32 Last Admin: 08/22/23 09:48 Dose: 0.5 mg Sodium Chloride (Nss) 1,000 mls @ 80 mls/hr IV .[id number] [facility] Stop: 09/16/23 03:32 Last Infusion: 08/18/23 18:46 Dose: Infused Pantoprazole Sodium 40 mg/ (Syringe) 10 mls @ 5 mls/min IV DAILY@1100 [facility] Stop: 09/16/23 10:59 Last Admin: 08/22/23 10:32 Dose: 5 mls/min Thiamine HCl 100 mg/ Syringe 10 mls @ 2 mls/min IV QAM [facility] Stop: 09/16/23 11:59 Last Admin: 08/22/23 09:33 Dose: 2 mls/min Folic Acid 1 mg/ Syringe 10 mls @ 5 mls/min IV QAM [facility] Stop: 09/16/23 11:59 Last Admin: 08/22/23 09:32 Dose: 5 mls/min Lorazepam (Lorazepam 0.5 Mg Tab) 0.5 mg PO Q6H PRN PRN Reason: Anxiety Stop: 09/19/23 16:35 Last Admin: 08/22/23 09:48 Dose: 0.5 mg Losartan Potassium (Losartan Potassium 50 Mg Tab) 50 mg PO BID [facility] Stop: 09/19/23 20:59 Last Admin: 08/22/23 09:31 Dose: 50 mg Metoprolol Tartrate (Metoprolol Tartrate 1 Mg/Ml Vial) 5 mg IV Q6 PRN PRN Reason: HR >110 Stop: 09/16/23 05:59 Nitroglycerin (Nitroglycerin Sl 0.4 Mg/Tab Tab) 0.4 mg SL Q5M PRN PRN Reason: Chest Pain Stop: 09/16/23 03:32 Ondansetron HCl (Ondansetron Inj 2 Mg/Ml 2 Ml Vial) 4 mg IV Q6H PRN PRN Reason: Nausea Stop: 09/16/23 03:32 Last Admin: 08/17/23 21:25 Dose: 4 mg Rosuvastatin Calcium (Rosuvastatin Calcium 20 Mg Tab) 20 mg PO DAILY [facility] Stop: 09/16/23 08:59 Last Admin: 08/22/23 09:31 Dose: 20 mg (1) Hypertension Hypertension type: primary hypertension Qualified Code(s): I10 - Essential (primary) hypertension
[2023-08-22] MEDS: carvediloL 6.25 MG TAB PO ONE (12:31)
[2023-08-22] MEDS: SPIRONOLACTONE 12.5 MG TAB PO SCH (12:49)
[2023-08-22] MEDS: carvediloL 12.5 MG TAB PO SCH (16:11)
--- NOTE | 2023-08-22 20:47 | Hospitalist Progress Note ---
Date of Service August 22, 2023 Assessment & Plan (1) Elevated LFTs: Plan: per admitting service notes with addendum: 53 yo M with hypertension, hyperlipidemia, depression, GERD . VALERY presents nausea vomiting and abdominal discomfort. Was not able to take his blood pressure medications because of nausea/vomiting and blood pressure running high. He was also having chills rigors sweating and shaky. Denies any chest pain. Currently no shortness of breath. States he has chronic cough and he had bronchoscopy in the past and was found to have some infection and supposedly repeat bronchoscopy but was not done. States has asthma but does not use inhalers. Denies any headache. No dizziness. No blurred vision. Normal bowel and bladder movements. Recently had a gallbladder ultrasound which showed adenomyomatosis and supposed to see surgery. Elevated LFTs n/v RUQ abdominal pain MRCP - No evidence of pancreatic or biliary ductal obstruction iv Zosyn iv Dilaudid prn, npo, iv fluids antiemetics prn follow repeat labs GI and Surgery consulted Discussed with surgery yesterday - pt may need cholecystectomy - [facility] GI - likely plan for EGD today (08/19/23). LFTs elevated seem to be chronic, perhaps d/t fatty liver 08/20 s/p EGD: unrevealing abdominal symptoms resolved 08/21 resolved HTN urgency not able to take PO meds on admission - Now pt able to take PO meds, says his BP was not well controlled at home and he does not see his PCP often. placed on iv Lopressor initially. restarted po Lopressor now cont. losartan iv hydralazine prn serial troponin negative Monitor closely BP, adjyst meds as needed Echo pending 08/20 Cardiology consulted for uncontrolled hypertension Carvedilol started Amlodipine further increased on Losartan 50mg BID monitor closely 08/21 BP still not at goal Carvedilol increased, Spironolactone added monitor Arrhythmia, poss. vt episode (on 08/17 pm) Pt reported 5-6 sec palpitations, otherwise asymptomatic, and resolved Per RN occurred shortly after she gave IV lopressor ECG obtained, BMP Echo pending No re-occurrence. Cont. to monitor on tele, if any more episodes or concerning echo, will discuss w/ cardiology 4/3 telemetry reviewed patient had a few second episode of SVT 08/17 08/21 no recurrence since currently on Carvedilol Alcoholism patient he says drinks 4 beers every 2-3 days patient doesn't think he will go through withdrawal. says he can go without drinking for few days will do iv thiamine and iv folic acid iv ativan prn close monitor no signs of acute withdrawal VALERY says not using cpap says he is sleeping fine will monitor Hyperlipidemia on Crestor GERD ppi Depression on fluoxetine DVt px scds Disposition anticipate to d/c home when BP stable Admission and Anticipated Discharge Date Admission Date: August 17, 2023 Subjective ff up for HTN, etc seen resting in bed, comfortable feels ok overall no chest pain, dyspnea, palpitations, dizziness has some back pain- well controlled has some anxiety- also controlled with PRN ativan no other symptoms Review of Systems Review of Systems: all noted and negative except for above Physical Exam Physical Exam: General- oriented x 3, not in distress, speaks in sentences with no effort or accessory muscle use Eyes- anicteric Neck- no JVD Lungs- clear breath sounds bilaterally, no rales/wheezes Heart- normal rate, regular rhythm; no murmurs Abdomen- normal bowel sounds, nondistended, soft, nontender Extremities- no pretibial edema, no calf tenderness Neuro- alert, oriented x 3; no gross focal neurologic deficits Skin- warm & dry Results & Data Results & Data Vital Signs (Past 12 Hours) Vital Signs Temp Pulse Pulse Resp BP BP Pulse Ox 08/22/23 19:43 36.9 C 72 20 146/95 H 97 08/22/23 16:16 70 08/22/23 15:15 36.9 C 69 16 162/104 H 98 08/22/23 10:59 36.6 C 74 20 160/117 H 98 O2 Del Method 08/22/23 19:43 Room Air 08/22/23 16:16 08/22/23 15:15 Room Air 08/22/23 10:59 Room Air all noted and reviewed including below
[2023-08-22] MEDS: ADVANCED PROBIOTIC 625 MG CAPSULE PO SCH (21:31)
[2023-08-23] MEDS ORDERED: ACETAMINOPHEN 500 MG TAB PO PRN (07:45)
[2023-08-23 10:20] LABS: BUN Creatinine Ratio 10.5 (10-20); Calcium 9.7 mg/dl (8.6-10.3); Creatinine Clr Calc Pharmacy 109.8 ml/min; Est GFR (African American) 113.1 ml/min; Est GFR (Non-African American) 97.6 ml/min; Potassium 3.5 mmol/L (3.5-5.1)
[2023-08-23] MEDS: carvediloL 12.5 MG TAB PO ONE (11:43)
[2023-08-23] MEDS: SPIRONOLACTONE 12.5 MG TAB PO ONE (11:43)
--- NOTE | 2023-08-23 11:57 | Cardiology Progress Note ---
Date of Service August 23, 2023 Assessment & Plan (1) Hypertension: (2) LVH (left ventricular hypertrophy): (3) Abnormal EKG: (4) Severe obstructive sleep apnea: Plan Patient initially admitted for nausea/vomiting/abdominal pain/elevated LFT's During admission found to have persistently elevated HTN despite multiple med changes. Home antihypertensives included losartan 25 mg daily and metoprolol tartrate 100 mg BID Since admission, amlodipine added, losartan increased. PRN use of IV hydralazine and IV labetalol also used Nitro ointment used last evening causing a headache. Nitro ointment discontinued this morning Increase amlodipine to 10 mg daily Stop metoprolol tartrate Start carvedilol 6.25 mg BID, starting tonight Echo reveals moderate LVH, grade II diastolic dysfunction and mildly elevated pulm pressures. Unchanged from prior echo. Could consider low dose HCTZ but with mild hyponatremia, will avoid diuretics for now. Likely has underlying VALERY but did not tolerate CPAP. Monitor BP several hours after med adjustments. Carvedilol to be started tonight. titrate as tolerated 08/22/23: BP improving over the last 24 hours but remains uncontrolled this morning. Continue amlodipine 10 mg daily, losartan 50 mg BID Metoprolol tartrate transitioned to carvedilol. Increase to 12.5 mg BID Add spironolactone 12.5 mg daily EKG abnormalities consistent with LVH. Echo revealed moderate LVH and preserved EF at time of echo this admission. However, he may benefit from outpatient ischemic work up, consider nuclear lexiscan scan given cardiac risk factors and abnormal EKG once BP improves. Hopeful his BP will be acceptable for discharge later this afternoon. 08/23/23: Increase carvedilol to 25 mg BID Increase spironolactone to 25 mg daily Continue amlodipine 10 daily continue losartan 50 mg BID BP continues to trend down. Acceptable readings today to be discharged. Will need PCP f/u and BMP next week given med changes. Given his Moderate LVH, abnormal EKG, will arrange cardiology f/u as well. Case discussed with Dr. Villa I spent a total of 35 minutes on the date of service in preparation, delivery, and documentation of the care provided to this patient, excluding any time spent in the performance of separately billed services. Berta Li PA-C Department of Cardiology, [facility] This chart was completed in part utilizing Speech Voice Recognition Software. Grammatical errors, random word insertions, pronoun errors, and incomplete sentences are an occasional consequence of this system due to software limitations, ambient noise, and hardware issues. Any formal questions or concerns about the content, text, or information contained within the body of this dictation should be directly addressed to the provider for clarification. Admission and Anticipated Discharge Date Admission Date: August 17, 2023 Supervising Physician Co-Signing Physician Notes Attending attestation: Case reviewed with the advanced practitioner. I have personally performed a history and physical examination on the patient. I have reviewed the advanced practitioner's documentation on the date of service referenced in note, and I agree with, and take responsibility for the plan of care. PATIENT STABLE FOR DISCHARGE FROM A CARDIOLOGY PERSPECTIVE. Most recent blood pressure measurement at 12:28 PM improved 123/85. I spent a total of 20 minutes coordinating, documenting, and providing care for this patient excluding time spent in the performance of separately billed services or time spent by another provider. Will Villa, DO Subjective Patient resting in bed. Denies acute complaints. Anxious for discharge. No chest pain, SOB, dizziness, lightheadedness, headache. Tolerating med changes. Review of Systems Review of Systems: All systems reviewed & are unremarkable except as noted in HPI & below Physical Exam Constitutional: WD/WN, vitals as above well nourished; no acute distress Neck: trachea midline, no thyromegaly Respiratory: normal respiratory effort; no respiratory distress Auscultation: lungs clear to auscultation bilaterally Cardiovascular: Rate/Rhythm: regular rate and regular rhythm Heart Sounds: normal S1 and normal S2; no murmur Gastrointestinal (Abdomen): normal bowel sounds, soft, nontender, no hepatosplenomegaly Skin: no rashes, warm and dry Neurologic: PERRL, EOMI, accommodation nl, no face palsy, no dysarthria Results & Data Vital Signs (Past 12 Hours) Vital Signs Temp Pulse Pulse Resp BP BP Pulse Ox 08/23/23 11:11 36.6 C 83 20 167/109 H 97 08/23/23 08:22 162/98 H 08/23/23 07:30 62 08/23/23 07:30 08/23/23 07:19 36.6 C 71 20 175/118 H 98 08/23/23 03:08 36.6 C 68 18 148/99 H 96 08/23/23 00:47 67 O2 Del Method 08/23/23 11:11 Room Air 08/23/23 08:22 08/23/23 07:30 08/23/23 07:30 Room Air 08/23/23 07:19 Room Air 08/23/23 03:08 Room Air 08/23/23 00:47 Laboratory Results Comprehensive Metabolic Panel 08/23/23 Range/Units 09:41 Sodium 135 L (136-145) mmol/L Potassium 3.5 (3.5-5.1) mmol/L Chloride 103 (98-107) mmol/L Carbon Dioxide 24 (21-32) mmol/L BUN 9 (6-23) mg/dl Creatinine 0.86 (0.6-1.4) mg/dl Glucose 92 (70-99(Fasting)) mg/dl Calcium 9.7 (8.6-10.3) mg/dl Intake and Output 08/22/23 08/23/23 08/23/23 22:59 06:59 14:59 Intake Total 480 / 1380 60 / 1380 360 / 360 Balance 480 / 1380 60 / 1380 360 / 360 Intake: Oral 480 / 1380 60 / 1380 360 / 360 Other: # Unmeasured Voids 1 4 Weight 90.5 kg Weight Measurement Method Built in [facility] Diagnostic Findings Telemetry reviewed: NSR in the 70-90 bmp range Medications Administered Current Inpatient Medications Acetaminophen (Acetaminophen 500 Mg Tab) 1,000 mg PO Q8H PRN PRN Reason: pain/fever Stop: 09/22/23 07:44 Amlodipine Besylate (Amlodipine Besylate 5 Mg Tab) 10 mg PO QAM [facility] Stop: 09/21/23 08:59 Last Admin: 08/23/23 08:22 Dose: 10 mg Amoxicillin/Clavulanate Potassium (Amoxicillin/Clavulanate 875 Mg Tab) 1 tab PO BIDM [facility]; Protocol Stop: 08/25/23 16:59 Last Admin: 08/23/23 08:23 Dose: 1 tab Carvedilol (Carvedilol 25 Mg Tab) 25 mg PO BIDM [facility] Stop: 09/22/23 16:59 Diclofenac Sodium (Diclofenac Sod 1% Gel 100 Gm Tube) 2 gm EXT BID [facility]; Protocol Stop: 09/17/23 14:24 Last Admin: 08/23/23 08:24 Dose: Not Given Fluoxetine HCl (Fluoxetine Hcl 10 Mg Cap) 10 mg PO DAILY [facility] Stop: 09/16/23 08:59 Last Admin: 08/23/23 08:23 Dose: 10 mg Hydralazine HCl (Hydralazine Hcl 20 Mg/Ml Vial) 5 mg IV Q6H PRN PRN Reason: systolic bp > 160 Stop: 09/19/23 12:07 Last Admin: 08/20/23 18:44 Dose: 5 mg Hydromorphone HCl (Hydromorphone Inj 0.5 Mg/0.5 Ml Syr) 0.5 mg IV Q4H PRN PRN Reason: Mod-Sev Pain (Scale 4-10) Stop: 08/31/23 03:32 Last Admin: 08/23/23 10:08 Dose: 0.5 mg Sodium Chloride (Nss) 1,000 mls @ 80 mls/hr IV .[id number] [facility] Stop: 09/16/23 03:32 Last Infusion: 08/18/23 18:46 Dose: Infused Pantoprazole Sodium 40 mg/ (Syringe) 10 mls @ 5 mls/min IV DAILY@1100 [facility] Stop: 09/16/23 10:59 Last Admin: 08/23/23 10:09 Dose: 5 mls/min Thiamine HCl 100 mg/ Syringe 10 mls @ 2 mls/min IV QAM [facility] Stop: 09/16/23 11:59 Last Admin: 08/23/23 08:23 Dose: 2 mls/min Folic Acid 1 mg/ Syringe 10 mls @ 5 mls/min IV QAM [facility] Stop: 09/16/23 11:59 Last Admin: 08/23/23 08:23 Dose: 5 mls/min Lactobacillus Acidophilus (Advanced Probiotic 625 Mg Capsule) 1,250 mg PO DAILY [facility] Stop: 09/21/23 17:14 Last Admin: 08/23/23 08:52 Dose: 1,250 mg Lorazepam (Lorazepam 0.5 Mg Tab) 0.5 mg PO Q6H PRN PRN Reason: Anxiety Stop: 09/19/23 16:35 Last Admin: 08/23/23 06:19 Dose: 0.5 mg Losartan Potassium (Losartan Potassium 50 Mg Tab) 50 mg PO BID [facility] Stop: 09/19/23 20:59 Last Admin: 08/23/23 08:23 Dose: 50 mg Metoprolol Tartrate (Metoprolol Tartrate 1 Mg/Ml Vial) 5 mg IV Q6 PRN PRN Reason: HR >110 Stop: 09/16/23 05:59 Nitroglycerin (Nitroglycerin Sl 0.4 Mg/Tab Tab) 0.4 mg SL Q5M PRN PRN Reason: Chest Pain Stop: 09/16/23 03:32 Ondansetron HCl (Ondansetron Inj 2 Mg/Ml 2 Ml Vial) 4 mg IV Q6H PRN PRN Reason: Nausea Stop: 09/16/23 03:32 Last Admin: 08/17/23 21:25 Dose: 4 mg Rosuvastatin Calcium (Rosuvastatin Calcium 20 Mg Tab) 20 mg PO DAILY [facility] Stop: 09/16/23 08:59 Last Admin: 08/23/23 08:22 Dose: 20 mg Spironolactone (Spironolactone 25 Mg Tab) 25 mg PO DAILY [facility] Stop: 09/23/23 08:59 (1) Hypertension Hypertension type: primary hypertension Qualified Code(s): I10 - Essential (primary) hypertension
[2023-08-23] MEDS ORDERED: carvediloL 25 MG TAB PO SCH (17:00)
--- NOTE | 2023-08-23 17:51 | Hospitalist Progress Note ---
Date of Service August 23, 2023 Assessment & Plan (1) Elevated LFTs: Plan: per admitting service notes with addendum: 53 yo M with hypertension, hyperlipidemia, depression, GERD . VALERY presents nausea vomiting and abdominal discomfort. Was not able to take his blood pressure medications because of nausea/vomiting and blood pressure running high. He was also having chills rigors sweating and shaky. Denies any chest pain. Currently no shortness of breath. States he has chronic cough and he had bronchoscopy in the past and was found to have some infection and supposedly repeat bronchoscopy but was not done. States has asthma but does not use inhalers. Denies any headache. No dizziness. No blurred vision. Normal bowel and bladder movements. Recently had a gallbladder ultrasound which showed adenomyomatosis and supposed to see surgery. Elevated LFTs n/v RUQ abdominal pain MRCP - No evidence of pancreatic or biliary ductal obstruction iv Zosyn iv Dilaudid prn, npo, iv fluids antiemetics prn follow repeat labs GI and Surgery consulted LFTs elevated seem to be chronic, perhaps d/t fatty liver 4/5 s/p EGD: unrevealing abdominal symptoms resolved Continue omeprazole Follow-up LFTs Patient HTN urgency Echocardiogram: Moderate concentric LVH Left ventricular wall motion is normal Left ventricle systolic function is normal LV ejection fraction 66 5% Pulmonary artery systolic pressure is estimated to be 38 mmHg mildly elevated Diastolic dysfunction grade 2 Aortic root is borderline dilated with diameter of 3.8 cm 4/3 Cardiology consulted for uncontrolled hypertension Carvedilol started Amlodipine further increased on Losartan 50mg BID monitor closely 4/4 BP still not at goal Carvedilol increased, Spironolactone added monitor 4/5 Blood pressure improved Discharged on carvedilol, losartan, spironolactone, amlodipine Follow-up with PCP in 1 week Chronic low back pain History of laminectomy as per patient Required. IV Dilaudid for pain control Patient requested to have p.o. Dilaudid at home for breakthrough pain Discussed in detail with patient that this medication should not be used alongside alcohol, and should only be used as directed Patient verbalized understanding and agreement Further evaluation management per primary care physician follow-up SVT episode Pt reported 5-6 sec palpitations, otherwise asymptomatic, and resolved Per RN occurred shortly after she gave IV lopressor ECG obtained, BMP No re-occurrence. telemetry reviewed patient had a few second episode of SVT 08/17 no recurrence since currently on Carvedilol Alcoholism patient he says drinks 4 beers every 2-3 days no signs of acute withdrawal Alcohol cessation VALERY says not using cpap says he is sleeping fine Hyperlipidemia on Crestor GERD ppi Depression on fluoxetine DVt px scds Disposition DC home PCP follow-up in 1 week plan of care discussed with patient in detail and at length all questions answered he is understanding, agreeable, comfortable with the plan of care Admission and Anticipated Discharge Date Admission Date: August 17, 2023 Subjective Follow-up for abdominal pain, hypertension, etc. Seen resting in bed, comfortable, not in distress States he feels okay overall No abdominal pain, nausea or vomiting no chest pain, dyspnea, palpitations, dizziness No other symptoms Review of Systems Review of Systems: all noted and negative except for above Physical Exam Physical Exam: General- oriented x 3, not in distress, speaks in sentences with no effort or accessory muscle use Eyes- anicteric Neck- no JVD Lungs- clear breath sounds bilaterally, no crackles or wheezes Heart- normal rate, regular rhythm; no murmurs Abdomen- normal bowel sounds, nondistended, soft, nontender Extremities- no pretibial edema, no calf tenderness Neuro- alert, oriented x 3; no gross focal neurologic deficits Skin- warm & dry Results & Data Results & Data Vital Signs (Past 12 Hours) Vital Signs Temp Pulse Pulse Pulse Resp BP BP 08/23/23 15:05 36.8 C 70 69 20 138/93 167/109 H 08/23/23 14:43 36.8 C 70 20 138/93 08/23/23 12:28 123/85 08/23/23 11:11 36.6 C 83 20 167/109 H 08/23/23 08:22 162/98 H 08/23/23 07:30 62 08/23/23 07:30 08/23/23 07:19 36.6 C 71 20 175/118 H Pulse Ox O2 Del Method 08/23/23 15:05 97 08/23/23 14:43 97 Room Air 08/23/23 12:28 08/23/23 11:11 97 Room Air 08/23/23 08:22 08/23/23 07:30 08/23/23 07:30 Room Air 08/23/23 07:19 98 Room Air all noted and reviewed including below
[2023-08-24] MEDS ORDERED: SPIRONOLACTONE 25 MG TAB PO SCH (09:00)
--- NOTE | 2023-08-25 16:30 | Discharge Summary ---
Discharge Summary Date of Service August 25, 2023 Notes For Next Care Provider Medication Changes From Visit Carvedilol 25 mg p.o. twice a day Spironolactone 25 mg daily Amlodipine 10 mg daily Losartan 50 mg twice a day Augmentin twice daily Dilaudid Admission HPI Per Admitting Provider 53 year old man with intermittent nausea and vomiting. He is here for EGD Admission Exam Per Admitting Provider Constitutional: WD/WN, vitals as above Neck: trachea midline, no thyromegaly Respiratory: normal respiratory effort, lungs clear to auscultation Cardiovascular: RRR, no murmur, no edema Gastrointestinal (Abdomen): normal bowel sounds, soft, nontender, no hepatosplenomegaly Principal Dx & Hospital Course #1 = Principal Diagnosis (1) Elevated LFTs: per admitting service notes with addendum: 53 yo M with hypertension, hyperlipidemia, depression, GERD . VALERY presents nausea vomiting and abdominal discomfort. Was not able to take his blood pressure medications because of nausea/vomiting and blood pressure running high. He was also having chills rigors sweating and shaky. Denies any chest pain. Currently no shortness of breath. States he has chronic cough and he had bronchoscopy in the past and was found to have some infection and supposedly repeat bronchoscopy but was not done. States has asthma but does not use inhalers. Denies any headache. No dizziness. No blurred vision. Normal bowel and bladder movements. Recently had a gallbladder ultrasound which showed adenomyomatosis and supposed to see surgery. Nausea and vomiting RUQ abdominal pain Elevated LFTs MRCP - No evidence of pancreatic or biliary ductal obstruction iv Zosyn iv Dilaudid prn, npo, iv fluids antiemetics prn follow repeat labs GI and Surgery consulted LFTs elevated seem to be chronic, perhaps d/t fatty liver 4/5 s/p EGD: unrevealing abdominal symptoms resolved Continue omeprazole Follow-up LFTs Patient HTN urgency Echocardiogram: Moderate concentric LVH Left ventricular wall motion is normal Left ventricle systolic function is normal LV ejection fraction 66 5% Pulmonary artery systolic pressure is estimated to be 38 mmHg mildly elevated Diastolic dysfunction grade 2 Aortic root is borderline dilated with diameter of 3.8 cm / Cardiology consulted for uncontrolled hypertension Carvedilol started Amlodipine further increased on Losartan 50mg BID monitor closely 08/21 BP still not at goal Carvedilol increased, Spironolactone added monitor 08/22 Blood pressure improved Discharged on carvedilol, losartan, spironolactone, amlodipine Follow-up with PCP in 1 week Chronic low back pain History of laminectomy as per patient Required. IV Dilaudid for pain control Patient requested to have p.o. Dilaudid at home for breakthrough pain Discussed in detail with patient that this medication should not be used alongside alcohol, and should only be used as directed Patient verbalized understanding and agreement Further evaluation management per primary care physician follow-up SVT episode Pt reported 5-6 sec palpitations, otherwise asymptomatic, and resolved Per RN occurred shortly after she gave IV lopressor ECG obtained, BMP No re-occurrence. telemetry reviewed patient had a few second episode of SVT 08/17 no recurrence since currently on Carvedilol UTI Urine culture alpha strep not Enterococcus Finish Augmentin course Alcoholism patient he says drinks 4 beers every 2-3 days no signs of acute withdrawal Alcohol cessation VALERY says not using cpap says he is sleeping fine Hyperlipidemia on Crestor GERD ppi Depression on fluoxetine DVt px scds Disposition DC home PCP follow-up in 1 week plan of care discussed with patient in detail and at length all questions answered he is understanding, agreeable, comfortable with the plan of care Discharge Exam General- oriented x 3, not in distress, speaks in sentences with no effort or accessory muscle use Eyes- anicteric Neck- no JVD Lungs- clear breath sounds bilaterally, no rales/wheezes Heart- normal rate, regular rhythm; no murmurs Abdomen- normal bowel sounds, nondistended, soft, nontender Extremities- no pretibial edema, no calf tenderness Neuro- alert, oriented x 3; no gross focal neurologic deficits Skin- warm & dry Updated Medication List Medication Instructions Recorded Confirmed Type omeprazole 40 mg capsule,delayed 40 mg PO DAILY #90 caps 10/26/21 08/16/23 Rx release fluoxetine 10 mg capsule 10 mg PO DAILY 08/16/23 08/16/23 History rosuvastatin 20 mg tablet 20 mg PO DAILY 08/16/23 08/16/23 History amlodipine 5 mg tablet (Norvasc) 10 mg (2 x 5 mg) PO QAM 30 days 08/23/23 Rx #60 tabs amoxicillin 875 mg-potassium 1 tab PO BIDM 3 days #6 tabs 08/23/23 Rx clavulanate 125 mg tablet carvedilol 25 mg tablet 25 mg PO BIDM 30 days #60 tabs 08/23/23 Rx hydromorphone 2 mg tablet 2 mg PO Q6H PRN severe back pain 08/23/23 Rx #6 tabs losartan 50 mg tablet 50 mg PO BID 30 days #60 tabs 08/23/23 Rx spironolactone 25 mg tablet 25 mg PO DAILY 30 days #30 tabs 08/23/23 Rx Hospital Stay Data Consultations 08/17/23 08:00 Consult Gastroenterology Routine Consult General Surgery Routine 08/21/23 07:27 Consult Cardiology Routine Procedures Performed Operation Date: 08/19/23 16:30 Actual Procedures p Esophagogastroduodenoscopy - Letitia Garner Jr, MD Diagnostic Imagining Performed Laboratory Results WBC 6.69 K/ul (4.8-10.8) 08/20/23 06:00 RBC 3.81 M/uL (4.70-6.10) L 08/20/23 06:00 Hgb 13.4 g/dl (14.0-18.0) L 08/20/23 06:00 Hct 37.5 % (42.0-52.0) L 08/20/23 06:00 MCV 98.4 fL (80.0-100.0) 08/20/23 06:00 MCH 35.2 pg (25.0-34.0) H 08/20/23 06:00 MCHC 35.7 g/dL (32.0-36.0) 08/20/23 06:00 RDW Std Deviation 44.3 fL (36.4-46.3) 08/20/23 06:00 RDW Coeff of Mona 12.3 % (11.5-14.5) 08/20/23 06:00 Plt Count 160 K/uL (130-400) 08/20/23 06:00 MPV 9.8 fL (9.4-12.4) 08/20/23 06:00 Immature Gran % (Auto) 0.4 % 08/17/23 07:09 Neut % (Auto) 61.5 % 08/17/23 07:09 Lymph % (Auto) 24.8 % 08/17/23 07:09 [place] % (Auto) 11.8 % 08/17/23 07:09 Eos % (Auto) 0.6 % 08/17/23 07:09 Baso % (Auto) 0.9 % 08/17/23 07:09 Neut # (Auto) 4.86 K/uL (1.40-6.50) 08/17/23 07:09 Lymph # (Auto) 1.96 K/uL (1.20-3.40) 08/17/23 07:09 [place] # (Auto) 0.93 K/uL (0.11-0.59) H 08/17/23 07:09 Eos # (Auto) 0.05 K/uL (0.00-0.50) 08/17/23 07:09 Baso # (Auto) 0.07 K/uL (0.00-0.20) 08/17/23 07:09 Immature Gran # (Auto) 0.03 K/uL (0.01-0.20) 08/17/23 07:09 Sodium 135 mmol/L (136-145) L 08/23/23 09:41 Potassium 3.5 mmol/L (3.5-5.1) 08/23/23 09:41 Chloride 103 mmol/L (98-107) 08/23/23 09:41 Carbon Dioxide 24 mmol/L (21-32) 08/23/23 09:41 Anion Gap 8 (3-11) 08/23/23 09:41 BUN 9 mg/dl (6-23) 08/23/23 09:41 Creatinine 0.86 mg/dl (0.6-1.4) 08/23/23 09:41 Est Cr Clr Drug Dosing 109.8 ml/min 08/23/23 09:41 Est GFR ( Amer) 113.1 ml/min 08/23/23 09:41 Est GFR (Non-Af Amer) 97.6 ml/min 08/23/23 09:41 BUN/Creatinine Ratio 10.5 (10-20) 08/23/23 09:41 Glucose 92 mg/dl (70-99(Fasting)) 08/23/23 09:41 Calcium 9.7 mg/dl (8.6-10.3) 08/23/23 09:41 Phosphorus 3.5 mg/dl (2.5-4.9) 08/20/23 06:00 Magnesium 1.8 mg/dl (1.7-2.4) 08/20/23 06:00 Total Bilirubin 1.9 mg/dl (0.2-1.0) H 08/20/23 06:00 Direct Bilirubin 0.5 mg/dl (0-0.2) H 08/17/23 07:09 AST 28 U/L (13-39) 08/20/23 06:00 ALT 36 U/L (7-52) 08/20/23 06:00 Alkaline Phosphatase 52 U/L (34-104) 08/20/23 06:00 Troponin I High Sens 14.5 pg/ml (0-20) 08/17/23 11:25 Total Protein 5.9 gm/dl (6.0-8.3) L 08/20/23 06:00 Albumin 3.9 gm/dl (3.4-5.0) 08/20/23 06:00 Globulin 2.0 gm/dl (2.5-4.0) L 08/20/23 06:00 Albumin/Globulin Ratio 2.0 (0.9-2) 08/20/23 06:00 Lipase 26 U/L (11-82) 08/17/23 07:09 Urine Color [place] 08/16/23 21:51 Urine Appearance Clear (Clear) 08/16/23 21:51 Urine pH 5.5 (4.5-7.5) 08/16/23 21:51 Ur Specific [place] > 1.045 (1.000-1.030) H 08/16/23 21:51 Urine Protein 3+ (Negative) H 08/16/23 21:51 Urine Glucose (UA) Negative (Negative) 08/16/23 21:51 Urine Ketones Trace (Negative) H 08/16/23 21:51 Urine Blood Negative (Negative) 08/16/23 21:51 Urine Nitrite Positive (Negative) A 08/16/23 21:51 Urine Bilirubin 2+ (Negative) H 08/16/23 21:51 Urine Urobilinogen Negative (Negative) 08/16/23 21:51 Ur Leukocyte Esterase Trace (Negative) H 08/16/23 21:51 Urine WBC (Auto) 10-30 /hpf (0-5) H 08/16/23 21:51 Urine RBC (Auto) 0-4 /hpf (0-4) 08/16/23 21:51 U Hyaline Cast (Auto) 10-30 /lpf (0-5) H 08/16/23 21:51 U Epithel Cells (Auto) >30 /lpf (0-5) H 08/16/23 21:51 Urine Bacteria (Auto) Negative (Negative) 08/16/23 21:51 Stl C. diff Tox B Gene Negative Cdiff Gene (Neg) 08/20/23 18:25 Impressions Chest X-Ray 08/16/23 16:54 XR chest 1V not portable HISTORY: Chest pain, nonspecific COMPARISON: Chest 12/07/2020. FINDINGS: The lungs are clear. Cardiac silhouette is normal in size. No pleural effusions. No pneumothorax. IMPRESSION: No acute process. ACT 112: Negative or not required by law. Electronically signed by: Darron Zamarripa M.D. 08/16/2023 5:36 PM Abdomen/Pelvis CT 08/16/23 20:51 Exam(s): CT ABDOMEN + PELVIS With Contrast IV Amt: OPTIRAY 320 92ML EXAM: CT Abdomen and Pelvis With Intravenous Contrast CLINICAL HISTORY: Reason for exam: RUQ abd pain, elevated lfts, fevers, chills. TECHNIQUE: Axial computed tomography images of the abdomen and pelvis with intravenous contrast. CTDI is 26.29 mGy and DLP is 1237.92 mGy-cm. Automated exposure control was utilized for the study. A dose lowering technique was utilized adhering to the principles of ALARA. CONTRAST: Patient received OPTIRAY 320 92ML of IV contrast COMPARISON: CT abdomen/pelvis on 11/25/2020 FINDINGS: Lung bases: Small calcified granuloma at the right lung base. No consolidation. ABDOMEN: Liver: Hepatic steatosis. Gallbladder and bile ducts: Unremarkable. No calcified stones. No ductal dilation. Pancreas: Unremarkable. No mass. No ductal dilation. Spleen: Unremarkable. No splenomegaly. Adrenals: Unremarkable. No mass. Kidneys and ureters: Small left renal cyst. No hydronephrosis or obstructing stone. Stomach and bowel: Evaluation of the stomach is limited by underdistention. No mucosal thickening. No bowel obstruction or inflammation. PELVIS: Appendix: Normal appendix. Bladder: Bladder wall thickening with surrounding fat stranding, concerning for cystitis. Please correlate with urinalysis. Reproductive: Unremarkable as visualized. ABDOMEN and PELVIS: Intraperitoneal space: Unremarkable. No free air. No significant fluid collection. Bones/joints: Degenerative changes of the spine. 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 No acute fracture. No dislocation. Soft tissues: Unremarkable. Vasculature: Minimal atherosclerotic changes of the vasculature. No aortic aneurysm or dissection. Lymph nodes: Unremarkable. No enlarged lymph nodes. IMPRESSION: Bladder wall thickening with surrounding fat stranding, concerning for cystitis. Please correlate with urinalysis. Electronically signed by: Valerie Adan M.D. 08/16/23 22:36 PM Cholangiopancreatography MRI 08/17/23 02:57 Exam(s): MRI MRCP EXAM: MR Abdomen Without Intravenous Contrast, MRCP Protocol CLINICAL HISTORY: Reason for exam: n/v, elevated lft, cholecystitis?. TECHNIQUE: Multiplanar magnetic resonance images of the abdomen without intravenous contrast using MRCP protocol. COMPARISON: No relevant prior studies available. FINDINGS: Bile ducts: Unremarkable. CBD caliber measures 5 mm in diameter no evidence of choledocholithiasis. No stones. No ductal dilation. Gallbladder: Unremarkable. No stones. Liver: No focal hepatic lesion identified. IMPRESSION: No evidence of pancreatic or biliary ductal obstruction Electronically signed by: Bijan Marquez MD 08/17/23 06:35 AM Pending Results Patient Have Any Pending Studies at Discharge: No Discharge Instructions Given to Patient (Per Discharging Provider) PLEASE REFER TO YOUR NEW MEDICATION LIST AND FOLLOW INSTRUCTIONS CAREFULLY. YOUR NEW MEDICATIONS INCLUDE: Carvedilol 25 mg p.o. twice a day Spironolactone 25 mg daily Amlodipine 10 mg daily Losartan 50 mg twice a day -- Blood pressure medications Augmentin --Antibiotic for urinary tract infection --Take a probiotic daily for at least 1 month Dilaudid -- For severe back pain -- NO driving/operating machineries/bathing in the tub while taking this medication Do not consume alcohol, or other substances while taking this medication- doing so may result in serious complications including, confusion, drowsiness,respiratory depression, loss of consciousness, seizures, even PLEASE CALL YOUR PRIMARY CARE PHYSICIAN OR RETURN TO THE ER IF WITH WORSENING OF SYMPTOMS, INCLUDING Headache, dizziness, chest pain, shortness of breath, palpitations, Worsening back pain, leg weakness or numbness, incontinence, etc. FOLLOW UP WITH PRIMARY CARE PHYSICIAN OUTLINED ABOVE. FOLLOW-UP WITH [facility] OUTLINED ABOVE. Total Time Total Time Spent Total Time Spent (In Minutes): >30 minutes
== END 2023-08-23 15:36 | disposition home or self-care (01) | DRG 442 ==
LOC: ED 16:40 → SUATTDRO 08-17 02:53 → EDINP 08-17 02:53 → 2E 08-17 19:35